=== PATIENT | male | born 1935 | race Caucasian/White ===

== ENCOUNTER 2023-04-14 21:29 | Emergency (ER) | payer MEDICARE, OTHER, SELFPAY ==
[2023-04-14 21:32] VITALS: BP 113/76; BMI 27.1
--- NOTE | 2023-04-14 22:32 | ED.GENMED ---
History of Present Illness
General
Chief Complaint: Headache
Time Seen by Provider: 04/14/23 22:32
Travel History
Have you had any contact with someone who has COVID-19?: No
Do you have any symptoms of coronavirus? Fever > 100 degrees, chills, cough, shortness of breath, sore throat, loss of taste or smell, muscle aches, or headache?: No
History of Present Illness
History of Present Illness:
HPI: Patient presents by ambulance because the was concerned about low blood pressure readings. The noted a blood pressure about 100 over 60s. Earlier in the day with a healthcare provider his blood pressure was around 120 systolic. Per
EMS his blood pressures were in the 120s to 130s systolic range. The patient reports no new symptoms. The family states he had a 'TIA' but also describes having ongoing intermittent aphasia along with ongoing facial paresthesias. Family states he
is in chronic A-fib. He takes Januvia for diabetes and his blood sugar was high prior to arrival but just took his evening meds. Family states that his mental status has been gradually worsening over the last several months. Family also reports a
3 pound weight loss over the past couple of weeks.
EXAM:
GENERAL: Well appearing in no distress, the patient is normotensive
HEENT: Moist oral mucosa
CARDIOVASCULAR: No murmurs, normal heart rate with irregular rhythm, No chest wall tenderness
PULMONARY: No respiratory distress, breath sounds are clear and equal
ABDOMEN: Soft with no peritoneal signs, no tenderness
NEUROLOGIC: Excellent strength all extremities, no coordination deficits, some mild aphasia noted, has trouble naming the month and the place
PSYCHIATRIC: Appropriate mental status, normal insight and judgement
EXTREMITIES: Nontender, no edema, moves all extremities equally
SKIN: No rash, no lesions
ED COURSE:
12:40 PM: I initially evaluated patient
NUMBER AND COMPLEXITY OF PROBLEMS ADDRESSED AT THE ENCOUNTER
� Chronic conditions affecting care: History of migraines, A-fib on Eliquis, CHF, high blood pressure, hyperlipidemia, diabetes, anxiety/depression
� Acute Exacerbation and/or Progression of Chronic Illness: This is an acute problem
� Differential Diagnosis includes: Sepsis less likely given normal vital signs currently, diabetes complications, medication induced transient hypotension
AMOUNT AND/OR COMPLEXITY OF DATA TO BE REVIEWED AND ANALYZED
� I performed an independent evaluation of and my interpretation is:
EKG: The patient remained in rate controlled A-fib on the monitor
CT: CT imaging showed no acute abnormality
X-rays:
Laboratory Studies: Renal function is comparable to but slightly worse than prior currently with creatinine of 2.1, white count normal, hemoglobin 11.8 which is also similar to prior
Other:
� Review of other/old records: The patient was admitted here this past August with HFrEF
� Clinical information was obtained by an independent historian: I spoke to and daughter at bedside
� Prescriptions/Medications Considered but not given: Considered IV fluids however the patient has a history of HFrEF and is currently normotensive
� Further testing considered but not performed:
RISK OF COMPLICATIONS AND/OR MORBIDITY OR MORTALITY OF PATIENT MANAGEMENT
� Social determinants of health affecting care: Lives at independent living
� Discussion with other providers:
� Escalation of care including admission/observation vs risk of discharge considered: I spoke to . She called the ambulance because she had 1 low blood pressure of 100 over 60s. The blood pressure earlier in the day
reportedly was around 120 and 2 blood pressure readings for EMS were both normal. He currently is normotensive. There is no new change on his neurologic examination. I reassessed the patient at 12:40 AM, the patient has no symptoms and repeat
blood pressure is 127/77.
Past History
Past History
ED Past Medical History: Arrthythmia (Atrial fibrillation), HTN, Hypercholesterolemia, NIDDM and Other (Ventral hernia)
ED Past Surgical History: Orthopedic and Other (Bowel resection)
Social History
Tobacco: Non-smoker
Personal:
Living: with family
Phy Exam
Physical Exam
Physical Exam:
See HPI
Course
Orders/Labs/Results
Orders:
Orders
04/14/23 22:43
Electrocardiogram (*1) Urgent
Reason for Study: Other
Other Reason for Exam: low bp
CT Head W/o Iv Contrast Urgent
Comment:
Reason For Exam: intermittent aphasia and facial paresthesias
EKG- Treatment ONCE
04/14/23 23:32
Basic Metabolic Panel Urgent
Complete Blood Count/With Diff Urgent
Abnormal Lab Results
04/14/23
23:32
RBC 3.97 L 10^6/uL
(4.70-6.10)
Hgb 11.8 L g/dL
(13.0-18.0)
Hct 34.8 L %
(39.0-52.0)
Absolute Monos (auto) 1.0 H 10^3/uL
(0.1-0.6)
Monocytes % 14.6 H %
(1.7-9.3)
BUN 48 H mg/dl
(9-20)
Creatinine 2.1 H mg/dL
(0.7-1.3)
04/14/23 23:32
04/14/23 23:32
Vital Signs
Initial and Last Documented VS:
Initial Vital Signs
Temp Pulse Resp BP Pulse Ox
99.2 F 77 16 113/76 98
04/14/23 21:32 04/14/23 21:32 04/14/23 21:32 04/14/23 21:32 04/14/23 21:32
Last Documented Vital Signs
Temp Pulse Resp BP Pulse Ox
99.2 F 76 17 117/83 98
04/14/23 21:32 04/14/23 23:30 04/14/23 23:30 04/14/23 23:30 04/14/23 23:30
*Critical Care Note
Total Time (30-74mins, 75-104mins- exclusive of procedures): Not Applicable
ED Attending Note
-
Portions of this chart may have been created with voice recognition software.� Occasional wrong word or��sound alike� substitutions may have occurred due to the inherent limitations of voice recognition software.
Discharge Plan
Departure
Patient Disposition: Home (Routine Discharge)
Date of Disposition: 04/15/23
Time of Disposition: 00:40
Patient with high blood pressure during this ER visit?: Yes
Discharge Problem:
Acute hypotension
Instructions: Low Blood Pressure (DC)
Prescriptions:
No Action
atorvastatin 40 MG tablet
40 mg PO QPM
omeprazole 20 MG capsule,delayed release(DR/EC)
20 mg PO DAILY
magnesium oxide 500 MG tablet
500 mg PO DAILY 0RF
fenofibrate 54 MG tablet
54 mg PO DAILY
Eliquis 2.5 mg Tablet
2.5 mg PO BID Qty: 60 0RF
atorvastatin [Lipitor] 10 mg Tablet
10 mg PO QPM
psyllium Packet
1 packet PO DAILY
acetaminophen [Tylenol Extra Strength] 500 mg Tablet
500 mg PO BID@0800,1200
acetaminophen [Tylenol Extra Strength] 500 mg Tablet
1,000 mg PO QPM
sertraline 50 mg Tablet
50 mg PO DAILY
tamsulosin 0.4 mg capsule
0.4 mg PO BID
Januvia 50 mg tablet
50 mg PO DAILY
metoprolol succinate [Toprol XL] 25 mg tablet extended release 24 hr
25 mg PO DAILY Qty: 30 2RF
furosemide [Lasix] 40 mg tablet
60 mg PO BID 30 Days Qty: 90 0RF
Referrals:
Vale Gaona MD [Family Provider] -
Activity Restrictions/Additional Instructions:
Currently, the 2 blood pressure readings that we have from EMS were normal and the blood pressure reading at time of discharge and at time of arrival were all near normal. He never had low blood pressure readings here. His glucose currently is 96.
His renal function is somewhat impaired but very close to prior. Return here if worse.
Interventions
Interventions:
*Risk Screen - Suicide Last Done: 04/14/23 21:32
*General Assessment Last Done: 04/14/23 23:19
*Neglect/Abuse Screening Last Done: 04/14/23 21:32
ED- Fall Risk Assessment Last Done: 04/14/23 23:19
*ED COVID-19 Vaccine History Last Done: 04/14/23 21:32
ED- Neurological Assessment Last Done: 04/14/23 23:19
[2023-04-14 23:30] VITALS: BP 117/83
[2023-04-14 23:43] LABS: % Basophils 0.6 % (0-2); % Immature Granulocytes 0.4 % (0-0.5); % Lymphocytes 23.1 % (20.5-51.1); % Monocytes 14.6 % (1.7-9.3); % Neutrophils 60.3 % (42.2-75.2); Absolute Eosinophils 0.1 10^3/uL (0-0.7); Absolute Lymphocytes 1.6 10^3/uL (1.2-3.4); Hematocrit 34.8 % (39.0-52.0); Hemoglobin 11.8 g/dL (13.0-18.0); Mean Corp Hgb Conc. 33.9 g/dL (33.0-37.0); Mean Corpuscular Hgb 29.7 pg (27.0-31.0); Mean Corpuscular Volume 87.7 fL (80.0-94.0); Mean Platelet Volume 10.2 fL (7.4-10.4); Nucleated Red Blood Cells % 0 % (-); Platelet Count 172 10^3/uL (130-400); Red Blood Cell Count 3.97 10^6/uL (4.70-6.10); Red Cell Dist. Width 14.2 % (11.5-14.5); White Blood Cell Count 6.7 10^3/uL (4.8-10.8)
[2023-04-14 23:57] LABS: Blood Urea Nitrogen 48 mg/dl (9-20); Calcium 9.2 mg/dl (8.4-10.2); Carbon Dioxide 28 mmol/L (22-30); Chloride 102 mmol/L (98-107); Estimated Creatinine Clearance 27 ml/min; Glucose 96 mg/dl (70-99); Sodium 137 mmol/L (135-145)
[2023-04-15 00:38] VITALS: BP 129/77
[2023-04-15 01:00] VITALS: BP 128/82
== END 2023-04-15 01:33 | disposition home or self-care (01) ==
LOC: EMR 21:29
PROVIDERS: EMERGENCY PHYSICIAN Emergency Medicine; FAMILY PHYSICIAN Internal Medicine
DX: I95.9 Hypotension, unspecified (principal); I11.0 Hypertensive heart disease with heart failure; I50.9 Heart failure, unspecified; I48.91 Unspecified atrial fibrillation; F41.9 Anxiety disorder, unspecified; F32.A Depression, unspecified; E78.00 Pure hypercholesterolemia, unspecified; E11.9 Type 2 diabetes mellitus without complications
CPT/HCPCS: 99284; 70450; 80048; 85025; 93005

== ENCOUNTER 2023-09-30 12:41 | Inpatient (IN) | payer MEDICARE, OTHER, SELFPAY ==
[2023-09-30] VITALS (15 sets, daily range): BP systolic 109–155; BP diastolic 61–106
[2023-09-30 05:07] LABS: % Basophils 0.5 % (0-2); % Eosinophils 0.5 % (0-6); % Immature Granulocytes 0.5 % (0-0.5); % Lymphocytes 22.8 % (20.5-51.1); % Monocytes 16.3 % (1.7-9.3); % Neutrophils 59.4 % (42.2-75.2); Absolute Lymphocytes 1.4 10^3/uL (1.2-3.4); Absolute Neutrophils 3.6 10^3/uL (1.4-6.5); Hemoglobin 11.5 g/dL (13.0-18.0); Mean Corp Hgb Conc. 33.8 g/dL (33.0-37.0); Mean Corpuscular Hgb 31.1 pg (27.0-31.0); Mean Corpuscular Volume 91.9 fL (80.0-94.0); Mean Platelet Volume 10.3 fL (7.4-10.4); Nucleated Red Blood Cells % 0 % (-); Platelet Count 157 10^3/uL (130-400); Red Cell Dist. Width 14.6 % (11.5-14.5)
[2023-09-30 05:17] LABS: COVID-19 Antigen Negative (Negative)
[2023-09-30 05:18] LABS: ALT (SGPT) 14 U/L (0-50); AST (SGOT) 26 U/L (17-59); Albumin 4.3 g/dl (3.5-5.0); Alkaline Phosphatase 43 U/L (38-126); Blood Urea Nitrogen 52 mg/dl (9-20); Calcium 9.6 mg/dl (8.4-10.2); Carbon Dioxide 29 mmol/L (22-30); Chloride 102 mmol/L (98-107); Glucose 125 mg/dl (70-99); Potassium 4.2 mmol/L (3.5-5.1); Sodium 143 mmol/L (135-145); Total Bilirubin 0.7 mg/dl (0.2-1.3); Total Protein 6.9 g/dl (6.3-8.2); eGFR 33.72
[2023-09-30 05:40] LABS: NT-proBNP 4200 pg/ml; Troponin I 0.048 ng/ml
--- NOTE | 2023-09-30 06:18 | ED.GENMED ---
History of Present Illness
General
Chief Complaint: Breathing Problem
Source: patient
Time Seen by Provider: 09/30/23 06:04
History of Present Illness
History of Present Illness:
87-year-old male presents to the emergency room complaining of chest pain, shortness of breath. Patient states he was awoken from sleep with the symptoms. He rates his chest discomfort as a 6 out of 10 at this point. Nothing seems to make it
better or worse. Patient denies history of [place].
Past History
Past History
ED Past Medical History: Arrthythmia (Atrial fibrillation), HTN, Hypercholesterolemia, NIDDM and Other (Ventral hernia)
ED Past Surgical History: Orthopedic and Other (Bowel resection)
Social History
Tobacco: Non-smoker
Personal:
Living: with family
Phy Exam
Physical Exam
Physical Exam:
General: Awake, Alert, Oriented X3. No acute distress.
Vitals: unremarkable
Head: Atraumatic
Eyes: Pupils equal, EOMI
Throat: Airway intact, no exudates
Neck: Trachea midline
Lungs: Few crackles bilateral bases
Heart: Regular rate, no murmurs
Abd: Soft, Nontender, No pulsatile mass
Neuro: Grossly nonfocal
Extremities: pulses equal b/l, 2+ edema
Scores
Heart Failure Risk
Heart Failure Risk Score: Yes
History of Stroke or TIA: Yes
History of intubation for respiratory distress: No
Heart rate on ED arrival >/= 110: Yes
SaO2 <90% on arrival on room air: Yes
HR >/=110 during 3min walk test (or too ill to perform test): Yes
ECG has acute ischemic changes: No
Urea >/=12mmol/L (BUN 33.6mg/dL): Yes
Serum CO2>/=35mmol/L: No
Troponin I or T elevated to [place] Level (0.4mg/dL): No
NT-proBNP >/=5,000ng/L (5,000pg/ml): No
HF Risk Score: 5
Admission Status: VERY HIGH RISK 39.8% Consider admission to hospital
Course
Orders/Labs/Results
Orders:
Orders
09/30/23 04:41
Electrocardiogram (*1) Urgent
Reason for Study: Shortness of Breath
EKG- Treatment ONCE
09/30/23 04:50
CR Chest - 2 Views Urgent
Comment:
Reason For Exam: cough
09/30/23 04:52
CBC/With Diff [Complete Blood Count/With Diff] Urgent
COVID-19 Antigen Urgent
Source: Nasal Swab
Comprehensive Metabolic Panel Urgent
Pro-BNP [NT-proBNP] Urgent
Troponin I Urgent
09/30/23 06:16
Nitroglycerin Sublingual [Nitrostat (Sublingual)] 0.4 mg SL [id number] PRN
09/30/23 06:17
Electrocardiogram (*1) Stat
Reason for Study: Other
Other Reason for Exam: chest pain
EKG- Treatment ONCE
09/30/23 07:39
Furosemide [Lasix] 40 mg IV NOW STA
09/30/23 07:56
Troponin I Urgent
Abnormal Lab Results
09/30/23 09/30/23
04:52 07:56
RBC 3.70 L 10^6/uL
(4.70-6.10)
Hgb 11.5 L g/dL
(13.0-18.0)
Hct 34.0 L %
(39.0-52.0)
MCH 31.1 H pg
(27.0-31.0)
RDW 14.6 H %
(11.5-14.5)
Absolute Monos (auto) 1.0 H 10^3/uL
(0.1-0.6)
Monocytes % 16.3 H %
(1.7-9.3)
BUN 52 H mg/dl
(9-20)
Creatinine 1.9 H mg/dL
(0.7-1.3)
Glucose 125 H mg/dl
(70-99)
Troponin I 0.048 H* ng/ml 0.049 H* ng/ml
09/30/23 04:52
09/30/23 04:52
Vital Signs
Initial and Last Documented VS:
Initial Vital Signs
Temp Pulse Resp BP Pulse Ox
98.1 F 63 18 123/86 100
09/30/23 04:43 09/30/23 04:43 09/30/23 04:43 09/30/23 04:43 09/30/23 04:43
Last Documented Vital Signs
Temp Pulse Resp BP Pulse Ox
98.1 F 78 16 131/81 100
09/30/23 04:43 09/30/23 11:00 09/30/23 11:00 09/30/23 11:00 09/30/23 11:00
MDM/Problems Addressed
Differential Diagnosis Includes:
chf, acs, pneumonia,
MDM/Problems Addressed:
Patient presents with chest pain, shortness of breath. He is anticoagulated on Eliquis. His BNP is elevated at 4200. Chest x-ray shows some chronic changes but not nothing acute. His EKG shows no ischemic changes. Troponin is slightly elevated
but flat on second measurement. Suspect patient's symptoms are related to heart failure. We will give him some IV Lasix and hospitalize for further treatment and evaluation
*Pulse Oximetry
Patient hypoxic: yes
*EKG
Interpreted by ED Provider?: Yes
Interpretation: abnormal
Comparison EKG: no changes
Heart Rate: 74
Rate: normal
Rhythm: a-fib and PVC's
[place]: normal axis
Interval: normal interval
QRS Pattern: normal QRS
Ischemia: non-specific ST changes
*Principal Security Architect Interpretation
Rate: normal
Interpretation: abnormal
Rhythm: a-fib and PVC's
*Critical Care Note
Total Time (30-74mins, 75-104mins- exclusive of procedures): Not Applicable
Data Reviewed
Review of Other/Old Records Reveals: Discharge Summary
Patient Management
Social determinants of health affecting care: Living situation
ED Attending Note
-
Portions of this chart may have been created with voice recognition software.� Occasional wrong word or��sound alike� substitutions may have occurred due to the inherent limitations of voice recognition software.
Discharge Plan
Departure
Patient Disposition: Admit
Date of Disposition: 09/30/23
Time of Disposition: 08:53
Admit to: Med/Surg
Presentation/result/management discussed w/ accepting MD/DO: Hospitalist
Condition: Fair
Discharge Problem:
CHF (congestive heart failure)
Prescriptions:
No Action
atorvastatin 40 MG tablet
40 mg PO QPM
omeprazole 20 MG capsule,delayed release(DR/EC)
20 mg PO DAILY
fenofibrate 54 MG tablet
54 mg PO DAILY
Eliquis 2.5 mg Tablet
2.5 mg PO BID Qty: 60 0RF
atorvastatin [Lipitor] 10 mg Tablet
10 mg PO QPM
acetaminophen [Tylenol Extra Strength] 500 mg Tablet
500 mg PO Q4H PRN (Reason: Pain)
sertraline 50 mg Tablet
50 mg PO DAILY
Januvia 50 mg tablet
50 mg PO DAILY
metoprolol succinate [Toprol XL] 25 mg tablet extended release 24 hr
25 mg PO DAILY Qty: 30 2RF
latanoprost 0.005 % Drops
1 drp LEFT EYE HS
Metamucil Packet
1 packet PO DAILY
vitamin B complex [Vitamin B-100] Tablet
1 tab PO DAILY
silodosin 8 mg Capsule
8 mg PO QPM
furosemide [Lasix] 40 mg tablet
60 mg PO DAILY
magnesium oxide 500 MG tablet
250 mg PO DAILY@1300
Referrals:
UNKNOWN - PT DOES,NOT KNOW [Family Provider] -
Interventions
Interventions:
*Risk Screen - Suicide Last Done: 09/30/23 04:43
*General Assessment Last Done: 09/30/23 04:43
*Neglect/Abuse Screening Last Done: 09/30/23 04:43
ED- Fall Risk Assessment Last Done: 09/30/23 04:50
*ED COVID-19 Vaccine History Last Done: 09/30/23 04:50
ED- Cardiac Assessment Last Done: 09/30/23 04:50
ED- Pulmonary Assessment Last Done: 09/30/23 04:50
Discharge Date and Time
Print Language: SAO TOMEAN
[2023-09-30] MEDS: NITROSTAT (SUBLINGUAL) 0.4 MG SL (06:38)
[2023-09-30] MEDS: LASIX 40 MG IV ×2 (07:57→16:13)
[2023-09-30 08:33] LABS: Troponin I 0.049 ng/ml
--- NOTE | 2023-09-30 11:59 | HPS.HSE ---
Family Physician
-
Family Physician: NOT KNOW UNKNOWN - PT DOES
Chief Complaint
-
SOB
History of Present Illness
87yo M with PMHx of RBBB, HLD, Afib on eliquis, CKD stage 3B, anxiety d/co HTN, HFmrEF, moderate TR, moderate MR, DM, hx of CVA, BRIONNA came with chest congestion and SOB, found to be in CHF with elevated proBNP 4200. EKG without new changes, troponin
mildly chronically elevated without significant change.
Medical History
Past Medical History
Past Medical History: Reports Other
Additional Past Medical History:
As above
Past Surgical History: Reports None
Social History
Tobacco: Non-smoker
Alcohol: None
Drug: None
Family History
Family History: Not pertinent
Allergies / Home Medications
Allergies reflects when Allergies were last updated in [facility].
Home Medications with original date entered in [facility]
Allergy/Medication List:
Allergies
Allergy/AdvReac Type Severity Reaction Status Date / Time
No Known Allergies Allergy Verified 04/14/23 21:35
Home Medications
atorvastatin 40 mg tablet 40 mg PO QPM take with 10mg 10/05/20
omeprazole 20 mg capsule,delayed release 20 mg PO DAILY Gastrointestinal issue 10/05/20
fenofibrate 54 mg tablet 54 mg PO DAILY High cholesterol 08/04/21
apixaban 2.5 mg tablet (Eliquis) 2.5 mg PO BID #60 tabs 08/06/21
acetaminophen 500 mg tablet (Tylenol Extra Strength) 500 mg PO Q4H PRN Pain 04/24/22
atorvastatin 10 mg tablet (Lipitor) 10 mg PO QPM take with 40mg 04/24/22
sertraline 50 mg tablet 50 mg PO DAILY Mental Health/Anxiety 04/24/22
sitagliptin phosphate 50 mg tablet (Januvia) 50 mg PO DAILY Diabetes 08/20/22
metoprolol succinate 25 mg tablet,extended release 24 hr (Toprol XL) 25 mg PO DAILY Heart disease/condition #30 tabs 08/21/22
furosemide 40 mg tablet (Lasix) 60 mg PO DAILY Heart Failure 09/30/23
latanoprost 0.005 % eye drops 1 drp LEFT EYE HS 09/30/23
magnesium oxide 250 mg PO DAILY@1300 Electrolyte Repletion 09/30/23
psyllium 1 packet PO DAILY 09/30/23
silodosin 8 mg capsule 8 mg PO QPM 09/30/23
vitamin B complex 1 tab PO DAILY 09/30/23
Review of Systems
-
History Source: Patient
A 12 point ROS was completed and negative except as noted: Yes
Respiratory: Reports Trouble Breathing
Physical Exam
Vital Signs
Vital Signs
Temp Pulse Resp BP Pulse Ox
98.1 F 78 16 131/81 100
09/30/23 04:43 09/30/23 11:00 09/30/23 11:00 09/30/23 11:00 09/30/23 11:00
Physical Exam
General: Well Developed, Well Nourished and No Apparent Distress
Respiratory: Clear
GI: Soft, Non Tender and Non Distended
Genito-urinary: Costovertebral angle tend
Musculoskeletal: No Clubbing, No Cyanosis, Edema, Left Lower Extremity and Edema, Right Lower Extremity
Skin: Warm
Neuro: Awake, Alert, Oriented and AO x 3
Psych: Calm
Laboratory Results
-
09/30/23 04:52
09/30/23 04:52
Laboratory Results
Total Bilirubin 0.7 mg/dl (0.2-1.3) 09/30/23 04:52
AST 26 U/L (17-59) 09/30/23 04:52
ALT 14 U/L (0-50) 09/30/23 04:52
Alkaline Phosphatase 43 U/L (38-126) 09/30/23 04:52
Troponin I 0.049 ng/ml H* 09/30/23 07:56
Impression/Plan
-
A/P:
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
#CAD
#Afib, unspecified
#Troponin elevation, most likely non-ischemic cardiac injury and 2/2 CKD
#Moderate MR
#Moderate TR
Cardio consult
Serial troponin
Cont Elqiuis
Telemetry
Echo, Lasix, follow daily weight and electrolytes
Check TSH, LDL
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
repeat CT chest
#DM type 2 with nephropathy
Accuchecks, Insulin SS, DM diet
#GERD
#HLD
#Essential HTN
#BPH
cont hoem meds
Watch for retention
DVT ppx on Elqiuis
Full code
I have spent at least 78min admitting the patient, reviewing chart, test results, communication with consultants anddirect patient care
--- NOTE | 2023-09-30 12:48 | CON.CAR ---
Consultation
Consultation Request
Date/Time Consultation Requested: 09/30/23
Date/Time Consultation Performed: 09/30/2023
Reason for Consultation: Heart failure and chest pain
Medical History
-
Chief Complaint: Shortness of breath
History of Present Illness:
87yo M with PMHx of RBBB, HLD, Afib on eliquis, CKD stage 3B, anxiety d/co HTN, HFmrEF, moderate TR, moderate MR, DM, hx of CVA, BRIONNA came with chest congestion and SOB, found to be in CHF with elevated proBNP 4200. EKG without new changes, troponin
mildly chronically elevated without significant change.
Patient was complaining of 1 day duration of chest pain. Patient's troponin was noted to be 0.048 and repeat was 0.049. Patient's creatinine is 1.9 which is close to his baseline.
Patient proBNP was 4200. Patient's normal proBNP during previous hospitalizations was around 2000's with CHF
Chest x-ray shows mild left-sided pleural effusion with cardiomegaly. Patient also has a history of asbestos exposure and COPD along with asbestos exposure noted on the chest x-ray.
Past Medical History
Past Medical History: Arrhythmias (Pulmonary atrial fibrillation), CVA (September 2020), HTN, NIDDM, Renal Failure (CKD 3B with baseline creatinine 1.8) and Other (Obstructive sleep apnea)
Past Surgical History: Bowel Resection and Orthopedic
Social History
Tobacco: Non-Smoker
Alcohol: None
Drug: None
Personal:
Living: With Family
Employment: Retired
Family History
Family History: Reviewed & Not Pertinent
Allergies / Home Medications
Allergy/AdvReac Type Severity Reaction Status Date / Time
No Known Allergies Allergy Verified 04/14/23 21:35
�Medication �Instructions �Recorded �Confirmed �Type
atorvastatin 40 mg tablet 40 mg PO QPM take with 10mg 10/05/20 09/30/23 History
omeprazole 20 mg capsule,delayed 20 mg PO DAILY Gastrointestinal 10/05/20 09/30/23 History
release issue
fenofibrate 54 mg tablet 54 mg PO DAILY High cholesterol 08/04/21 09/30/23 History
apixaban 2.5 mg tablet (Eliquis) 2.5 mg PO BID #60 tabs 08/06/21 09/30/23 Rx
acetaminophen 500 mg tablet 500 mg PO Q4H PRN Pain 04/24/22 09/30/23 History
(Tylenol Extra Strength)
atorvastatin 10 mg tablet (Lipitor) 10 mg PO QPM take with 40mg 04/24/22 09/30/23 History
sertraline 50 mg tablet 50 mg PO DAILY Mental 04/24/22 09/30/23 History
Health/Anxiety
sitagliptin phosphate 50 mg tablet 50 mg PO DAILY Diabetes 08/20/22 09/30/23 History
(Januvia)
metoprolol succinate 25 mg 25 mg PO DAILY Heart 08/21/22 09/30/23 Rx
tablet,extended release 24 hr disease/condition #30 tabs
(Toprol XL)
furosemide 40 mg tablet (Lasix) 60 mg PO DAILY Heart Failure 09/30/23 09/30/23 History
latanoprost 0.005 % eye drops 1 drp LEFT EYE HS 09/30/23 09/30/23 History
magnesium oxide 250 mg PO DAILY@1300 Electrolyte 09/30/23 09/30/23 History
Repletion
psyllium 1 packet PO DAILY 09/30/23 09/30/23 History
silodosin 8 mg capsule 8 mg PO QPM 09/30/23 09/30/23 History
vitamin B complex 1 tab PO DAILY 09/30/23 09/30/23 History
Review of Systems
-
History Source: Patient
All other systems: Negative unless noted
Physical Exam
Vital Signs
Temp Pulse Resp BP Pulse Ox
98.1 F 67 16 128/80 100
09/30/23 04:43 09/30/23 12:00 09/30/23 12:00 09/30/23 12:00 09/30/23 12:00
Lab Results
09/30/23 04:52
09/30/23 04:52
Troponin I 0.049 ng/ml H* 09/30/23 07:56
Nfe-T-Riocfvfynhi Pept 4200 pg/ml 09/30/23 04:52
Physical Exam
General: Well Developed, Well Nourished and No Apparent Distress
HEENT: Normocephalic and Anicteric
Respiratory: Clear, Crackles, Rhonchi and Non Labored Respirations
Cardiac: S1/S2, Irregular Rhythm and JVD
GI: Soft, Non Tender and Normal Bowel Sounds
Musculoskeletal: No Clubbing, No Cyanosis and Edema
Skin: Warm and Dry
Neuro: Awake, Alert, Oriented and AO x 3
Impression / Plan
-
HFrEF (EF 35-40%), acute on chronic
-Echo 08/19/2022: LVEF 35%. Severe inferolateral, inferoseptal and inferior hypokinesis.
-Moderate MR�eccentric massively dilated left and right atria
- Diuresis with furosemide 40 mg IV twice daily, this requires monitoring
- GDMT as tolerated, this is limited by his renal function
- On metoprolol 25 mg once a day
- Daily weight, BMP, & I/Os
- HF education
Chest pain and shortness of breath
-Likely related to acute on chronic decompensated heart failure.
-Serial troponin to rule out any significant troponin leak
-Demand ischemia is expected with mild to moderate troponin elevation.
-Troponin was 0.05 in July 2021 but was 0.02 in 2022. Now 0.05 -likely baseline with acute heart failure and CKD.
Permanent Atrial Fibrillation
- Rate controlled on propranolol
- Oral Anticoagulation: Eliquis 2.5mg PO BID (age 86, creatinine > 1.5)
- [id number] score at least 7 (Heart failure, HTN, age 75 or more, Diabetes Mellitus, prior CVA)
CKD3b
- Follow with IV diuresis
- Patient of Dr. Mayorga
HTN - chronic
- Follow with IV diuresis & Diltiazem gtt
- Continue Cozaar & Toprol
NIDDM, per primary
CVA, while warfarin was on hold for epidural (09/2020)
HLD, on Lipitor & Tricor
Mild to moderate, eccentric mitral regurgitation
BRIONNA, reports CPAP intolerant
Data Reviewed
-
EKG: Tracing Personally Visualized and interpreted (Atrial fibrillation with PVC)
Radiology: Image Personally Visualized and interpreted and Report Reviewed by me
Medical Tests (Nuc Med, Echo etc): Image Personally Visualized and interpreted
Labs: Labs Reviewed by me
Old Records: Reviewed
--- NOTE | 2023-09-30 14:02 | PTCARENOTE ---
Arrived to floor and pulled over to bed from stretcher. Patient reports to be wheel chair bound at baseline. Call [facility] within reach. Oriented to room.
[2023-09-30 14:19] LABS: Glucose - Point of Care 137 mg/dl (70-99)
[2023-09-30 15:08] LABS: Troponin I 0.059 ng/ml
[2023-09-30] MEDS: DUONEB 3 ML INH ×2 (15:09→19:51)
[2023-09-30] MEDS: TYLENOL 650 MG PO (16:13)
[2023-09-30] MEDS: MAGNESIUM OXIDE 250 MG PO (16:17)
[2023-09-30] MEDS: FLOMAX 0.4 MG PO (16:21)
[2023-09-30] MEDS: LIPITOR 10 MG PO (16:21)
[2023-09-30] MEDS: LIPITOR 40 MG PO (16:21)
[2023-09-30 17:17] LABS: Glucose - Point of Care 194 mg/dl (70-99)
[2023-09-30] MEDS: NOVOLOG FLEXPEN-LOW RESISTANCE SC (17:26)
[2023-09-30] MEDS: NOVOLOG FLEXPEN-LOW RESISTANCE 1 UNITS SC (18:03)
[2023-09-30] MEDS: ELIQUIS 2.5 MG PO (20:32)
[2023-09-30] MEDS: MELATONIN 3 MG PO (20:32)
[2023-09-30] MEDS: MORPHINE SULFATE 1 MG IV (21:19)
--- NOTE | 2023-09-30 22:10 | W.PN.UPDATE ---
Update Note
Progress Note Update
Notified by RN or elevated troponin 0.048>0.049>0.59>0.090. Reports patient is SOB and Tachycardic. Upon assessment, patient reports having pain to his sacral wound, reports of being anxious from having pain to the area. Denies worsening SOB, chest
pain. Lungs CTA. Rx 1mg morphine which appears to be helping. Patient sleeping at this time. Nursing continue to monitor and continue Troponin trend.
[2023-09-30] MEDS: XALATAN OPHTHALMIC SOLUTION LEFT EYE (22:30)
[2023-09-30 23:57] LABS: Glucose - Point of Care 167 mg/dl (70-99)
[2023-10-01] VITALS (18 sets, daily range): BP systolic 87–144; BP diastolic 46–80; BMI 24.9
[2023-10-01 02:10] LABS: Troponin I 0.121 ng/ml
[2023-10-01] MEDS: HEPARIN 25000 UNITS/250 ML IV (07:05)
[2023-10-01] MEDS: TYLENOL 650 MG PO ×2 (07:05→14:55)
[2023-10-01] MEDS: ASPIRIN 325 MG PO (07:09)
[2023-10-01 07:35] LABS: % Basophils 0.2 % (0-2); % Eosinophils 0.1 % (0-6); % Immature Granulocytes 0.5 % (0-0.5); % Lymphocytes 7.8 % (20.5-51.1); % Monocytes 11.3 % (1.7-9.3); % Neutrophils 80.1 % (42.2-75.2); Absolute Immature Granulocytes 0.1 10^3/uL (0-0.05); Absolute Lymphocytes 0.7 10^3/uL (1.2-3.4); Absolute Neutrophils 7.3 10^3/uL (1.4-6.5); Hematocrit 36.3 % (39.0-52.0); Hemoglobin 12.4 g/dL (13.0-18.0); Mean Corp Hgb Conc. 34.2 g/dL (33.0-37.0); Mean Corpuscular Hgb 30.2 pg (27.0-31.0); Mean Corpuscular Volume 88.3 fL (80.0-94.0); Mean Platelet Volume 10.2 fL (7.4-10.4); Nucleated Red Blood Cells % 0 % (-); Platelet Count 180 10^3/uL (130-400); Red Blood Cell Count 4.11 10^6/uL (4.70-6.10); Red Cell Dist. Width 14.6 % (11.5-14.5); White Blood Cell Count 9.1 10^3/uL (4.8-10.8)
[2023-10-01] MEDS: DUONEB 3 ML INH ×4 (07:40→19:46)
[2023-10-01 07:44] LABS: APTT 33.2 Sec (23.4-35.0)
[2023-10-01 07:48] LABS: ALT (SGPT) 15 U/L (0-50); AST (SGOT) 27 U/L (17-59); Albumin 4.5 g/dl (3.5-5.0); Alkaline Phosphatase 46 U/L (38-126); Blood Urea Nitrogen 54 mg/dl (9-20); Calcium 10.1 mg/dl (8.4-10.2); Carbon Dioxide 31 mmol/L (22-30); Chloride 99 mmol/L (98-107); Estimated Creatinine Clearance 29 ml/min; Glucose 159 mg/dl (70-99); HDL Cholesterol 45 mg/dl; LDL Cholesterol, Calculated 91 mg/dl; Potassium 3.8 mmol/L (3.5-5.1); Sodium 142 mmol/L (135-145); Total Bilirubin 1.1 mg/dl (0.2-1.3); Total Cholesterol 151 mg/dl (50-199); Total Protein 7.3 g/dl (6.3-8.2); Triglyceride 76 mg/dl (10-149); Very Low Density Lipoprotein 15 mg/dl (0-30); eGFR 31.71
[2023-10-01] MEDS: LASIX 40 MG IV ×2 (07:58→16:15)
[2023-10-01] MEDS: TRICOR 48 MG PO (07:59)
[2023-10-01] MEDS: ZOLOFT 50 MG PO (07:59)
[2023-10-01] MEDS: B COMPLEX w/VITAMIN C 1 CAPLET PO (07:59)
[2023-10-01] MEDS: METAMUCIL, KONSYL 1 PACKET PO (07:59)
[2023-10-01] MEDS: PROTONIX 20 MG PO (07:59)
[2023-10-01] MEDS: TOPROL XL 25 MG PO (07:59)
--- NOTE | 2023-10-01 08:11 | W.PN.CD ---
Today's Communication / Plan
-
-Continue diuresis with Lasix
-Discontinue heparin drip
-Resume Eliquis 2.5 mg twice a day
Impression / Plan
-
HFrEF (EF 35-40%), acute on chronic
-Echo 08/19/2022: LVEF 35%. Severe inferolateral, inferoseptal and inferior hypokinesis.
-Moderate MR�eccentric massively dilated left and right atria
- Diuresis with furosemide 40 mg IV twice daily, this requires monitoring
- GDMT as tolerated, this is limited by his renal function
- On metoprolol 25 mg once a day
- Daily weight, BMP, & I/Os
- HF education
Chest pain and shortness of breath
-Denies any chest pain. There was shortness of breath likely related to heart failure.
-Likely related to acute on chronic decompensated heart failure.
-Serial troponin showed slow rise to 0.13 -no sign of acute coronary syndrome. Likely related to nausea vomiting and heart failure in setting of severe CKD.
-Demand ischemia is expected with mild to moderate troponin elevation.
-Troponin was 0.05 in July 2021 but was 0.02 in 2022. Now 0.05 -likely baseline with acute heart failure and CKD.
-Patient was started on heparin drip overnight. Okay to stop heparin at this time. Resume Eliquis 2.5 mg twice a day.
Permanent Atrial Fibrillation
- Rate controlled on propranolol
- Oral Anticoagulation: Eliquis 2.5mg PO BID (age 86, creatinine > 1.5)
- [id number] score at least 7 (Heart failure, HTN, age 75 or more, Diabetes Mellitus, prior CVA)
CKD3b
- Follow with IV diuresis
- Patient of Dr. Mayorga
HTN - chronic
- Follow with IV diuresis & Diltiazem gtt
- Continue Cozaar & Toprol
NIDDM, per primary
CVA, while warfarin was on hold for epidural (09/2020)
HLD, on Lipitor & Tricor
Mild to moderate, eccentric mitral regurgitation
BRIONNA, reports CPAP intolerant
Subjective:
Patient is feeling much better with diuresis. Denies any chest pain. Shortness of breath is almost resolved.
Physical Exam
Vital Signs/Labs
Vital Signs
Temp Pulse Resp BP Pulse Ox
98.2 F 102 16 110/65 97
10/01/23 03:13 10/01/23 07:59 10/01/23 07:45 10/01/23 07:59 10/01/23 07:45
09/30/23 10/01/23 10/02/23
06:59 06:59 06:59
Actual Weight 92.8 kg 83.092 kg
10/01/23 07:07
10/01/23 07:07
APTT 33.2 Sec (23.4-35.0) 10/01/23 07:07
Magnesium 2.0 mg/dl (1.6-2.3) 10/01/23 07:07
Triglycerides 76 mg/dl (10-149) 10/01/23 07:07
LDL Cholesterol, Calc 91 mg/dl 10/01/23 07:07
VLDL Cholesterol, Calc 15 mg/dl (0-30) 10/01/23 07:07
HDL Cholesterol 45 mg/dl 10/01/23 07:07
09/30/23
04:52
Kjy-Q-Uvygaenjlbb Pept 4200
LAB Results
09/30/23 09/30/23 09/30/23
04:52 07:56 14:34
Troponin I 0.048 H* 0.049 H* 0.059 H*
09/30/23 10/01/23 10/01/23
20:04 01:39 07:07
Troponin I 0.090 H* D 0.121 H* D 0.130 H*
Physical Exam
Constitutional: No acute distress and Comfortable
EENT: Anicteric and Moist mucous membranes
Cardiovascular: Pedal edema is absent, Rhythm/rate is irregular, JVD present and Systolic murmur present
Respiratory: Respiratory effort normal and Crackles Present
GI: Soft, Distention absent, Non tender and Normal bowel sounds
Neuro/Psych: Alert, Oriented and AO x 3
Data Reviewed
-
Date of Service: October 01, 2023
Medical Decision Making: Reviewed Test Results, Independent Historian Assessment, Test Interpretation and Review of Case with other Provider
EKG: Tracing Personally Visualized and interpreted
Echo: Report Reviewed by me
Labs: Labs Reviewed by me
Old Records: Reviewed
[2023-10-01 08:16] LABS: TSH Reflex To Free T4 2.54 uIU/ml (0.47-4.68)
[2023-10-01 08:16] LABS: Glucose - Point of Care 145 mg/dl (70-99)
[2023-10-01] MEDS: NOVOLOG FLEXPEN-LOW RESISTANCE SC ×2 (08:27→17:17)
--- NOTE | 2023-10-01 10:24 | W.PN.HOSP.TC ---
Today's Communication/Plan
-
Heparin instead of ELiquis awaiting further Cardio follow up - repeated EKG without ST elevation
cont Lasix
Urology cosnult
Watch for retention. Donovan if PVR>350ml
Echo pending
Assessment / Plan
Assessment / Plan
87yo M with PMHx of RBBB, HLD, Afib on eliquis, CKD stage 3B, anxiety d/co HTN, HFmrEF, moderate TR, moderate MR, DM, hx of CVA, BRIONNA came with chest congestion and SOB, found to be in CHF with elevated proBNP 4200. EKG without new changes, troponin
chronically elevated but started to trend up. Chest symptoms resolved with diuresis.
A/P:
A/P:
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
#CAD
#Afib, permanent
#Troponin elevation
#Moderate MR
#Moderate TR
ASA, heparin pending further card eval
Cardio consult
Serial troponin
Cont Elqiuis
Telemetry
Echo, Lasix, follow daily weight and electrolytes
TSH WNL
LDL 91
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
#Lung fibrosis
Outpatient pulm
bronchodilators
#b/l renal calyces enlargement, concern for BPH
watch for retention with serial bladder scan
Urology conault
Finasteride/Tamsulosin
CKD stable - watch Cr
#DM type 2 with nephropathy
Accuchecks, Insulin SS, DM diet
#Sacral wound
Woundcare
#GERD
#HLD
#Essential HTN
#BPH
cont hoem meds
Watch for retention
DVT ppx on Elqiuis
Full code
I have spent at least 58min reviewing chart, test results, communication with consultants, family and direct patient care
Anticipated Discharge: > 48 hours
Subjective/Interval History
-
Date of Service: October 01, 2023
Objective Data
-
Labs:
Laboratory Results
10/01/23 10/01/23
07:07 13:15
WBC 9.1
Hgb 12.4 L
Hct 36.3 L
Plt Count 180
APTT 33.2 Pending
Sodium 142
Potassium 3.8
Chloride 99
Carbon Dioxide 31 H
BUN 54 H
Creatinine 2.0 H
Glucose 159 H
Calcium 10.1
Total Bilirubin 1.1
AST 27
ALT 15
Alkaline Phosphatase 46
Vital Signs:
Vital Signs
Temp Pulse Resp BP Pulse Ox
98 F 102 22 110/65 97
10/01/23 07:48 10/01/23 07:59 10/01/23 07:48 10/01/23 07:59 10/01/23 08:27
I&O
09/30/23 10/01/23 10/02/23
06:59 06:59 06:59
Intake Total 240 / 240
Balance 240 / 240
Review of Systems
-
History Source: Patient
All other systems: Reviewed and negative
Physical Exam
-
General: Respiratory Distress
Cardiac: Irregular Rhythm; Negative Tachycardic
GI: Soft, Nontender and Nondistended
Musculoskeletal: No Clubbing, No Cyanosis and No Edema
Skin: Warm
Neuro: Awake, Alert, Oriented and AO x 3
Psych: Calm
--- NOTE | 2023-10-01 10:34 | PTCARENOTE ---
Patient complains of 'sore butt.' Skin is intact. Foam placed on sacrum for protection on 09/29 @ admission. Static overlay placed on admission, patient asked to have static overlay removed. Maintain q2 turns and skin checks.
[2023-10-01 11:12] LABS: Glycohemoglobin (HgbA1c) 6.9 % (4.0-5.6)
--- NOTE | 2023-10-01 11:18 | PTCARENOTE ---
Patient was saturated and changed at 7am. IV Lasix was given with am medications. No void noted at 10:45, patient bladder scanned for 1100ml. Straight cath for 1150ml.
[2023-10-01] MEDS: ELIQUIS 2.5 MG PO ×2 (11:20→22:19)
[2023-10-01] MEDS: MAGNESIUM OXIDE 250 MG PO ×2 (11:20→11:21)
[2023-10-01 11:46] LABS: Glucose - Point of Care 184 mg/dl (70-99)
[2023-10-01] MEDS: NOVOLOG FLEXPEN-LOW RESISTANCE 1 UNITS SC (11:53)
--- NOTE | 2023-10-01 12:52 | CONS.URO ---
Consultation
-
Performing Provider: Brandon
Reason for Consultation: 10/01/23 1252
Medical History
History of Present Illness
pt admitted with CHF
Chest CT incidentally noted bilateral hydronephrosis
Per family at bedside, Donovan was removed today
he had seen Sr Montalvo recently as an outpatient for previous voiding dysfunction
I &O cath'd for ~1,150 ml urine less than 2 hours ago
Past Medical History
Past Medical History: Other (RBBB, HLD, Afib on eliquis, CKD stage 3B, anxiety d/co HTN, HFmrEF, moderate TR, moderate MR, DM, hx of CVA, BRIONNA)
Allergies/Home Medications
Allergies
Allergy/AdvReac Type Severity Reaction Status Date / Time
No Known Allergies Allergy Verified 04/14/23 21:35
Home Medications
�Medication �Instructions �Recorded �Confirmed �Type
atorvastatin 40 mg tablet 40 mg PO QPM take with 10mg 10/05/20 09/30/23 History
omeprazole 20 mg capsule,delayed 20 mg PO DAILY Gastrointestinal 10/05/20 09/30/23 History
release issue
fenofibrate 54 mg tablet 54 mg PO DAILY High cholesterol 08/04/21 09/30/23 History
apixaban 2.5 mg tablet (Eliquis) 2.5 mg PO BID #60 tabs 08/06/21 09/30/23 Rx
acetaminophen 500 mg tablet 500 mg PO Q4H PRN Pain 04/24/22 09/30/23 History
(Tylenol Extra Strength)
atorvastatin 10 mg tablet (Lipitor) 10 mg PO QPM take with 40mg 04/24/22 09/30/23 History
sertraline 50 mg tablet 50 mg PO DAILY Mental 04/24/22 09/30/23 History
Health/Anxiety
sitagliptin phosphate 50 mg tablet 50 mg PO DAILY Diabetes 08/20/22 09/30/23 History
(Januvia)
metoprolol succinate 25 mg 25 mg PO DAILY Heart 08/21/22 09/30/23 Rx
tablet,extended release 24 hr disease/condition #30 tabs
(Toprol XL)
furosemide 40 mg tablet (Lasix) 60 mg PO DAILY Heart Failure 09/30/23 09/30/23 History
latanoprost 0.005 % eye drops 1 drp LEFT EYE HS Eye Condition 09/30/23 09/30/23 History
magnesium oxide 250 mg PO DAILY@1300 Electrolyte 09/30/23 09/30/23 History
Repletion
psyllium 1 packet PO DAILY Constipation 09/30/23 09/30/23 History
silodosin 8 mg capsule 8 mg PO QPM Urinary Issue 09/30/23 09/30/23 History
vitamin B complex 1 tab PO DAILY Supplement 09/30/23 09/30/23 History
Physical Exam
Vital Signs
Vital Signs
Temp Pulse Resp BP Pulse Ox
98 F 76 16 110/65 99
10/01/23 07:48 10/01/23 11:17 10/01/23 11:17 10/01/23 07:59 10/01/23 11:17
Lab / Testing Results
Laboratory Results
10/01/23 07:07
10/01/23 07:07
Physical Exam
elderly male
General: No Apparent Distress and Comfortable
Assessment / Plan
-
Prostatomegaly with Urinary Retention, bilateral hydronephrosis and elevated serum creatinine c/w obstructive uropathy
Rec:
continue Silodsin
CIC
Data Reviewed
-
CT Scan: Image personally visualized and interpreted
Old Records: Reviewed
[2023-10-01 13:12] LABS: Troponin I 0.138 ng/ml
[2023-10-01] MEDS: MORPHINE SULFATE 1 MG IV (14:02)
[2023-10-01] MEDS: LIPITOR 40 MG PO (16:16)
[2023-10-01] MEDS: LIPITOR 10 MG PO (16:16)
[2023-10-01] MEDS: FLOMAX 0.4 MG PO (16:16)
--- NOTE | 2023-10-01 16:26 | W.PN.UPDATE ---
Update Note
Progress Note Update
Fever
ct chest neg for pna
COVID-19 neg
Check UA and Bcx
Check procalcitonin
monitor for other signs of infection, currently have no indication for abx
[2023-10-01 16:32] LABS: Urine Albumin Trace (Neg - Trace); Urine Bilirubin Negative (Negative); Urine Character Slightly Cloudy (Clear); Urine Color Yellow; Urine Glucose Negative (Negative); Urine Ketone Negative (Negative); Urine Leukocyte 2+ (Negative); Urine Nitrite Negative (Negative); Urine Occult Blood 4+ (Negative); Urine Urobilinogen Negative (Neg - 1+)
--- NOTE | 2023-10-01 16:39 | CM ---
Addendum entered by Jovanna Cortez RN 10/01/23 16:56:
Referral to VN.
Original Note:
Patient with Dx HF. Febrile today. Room air. Receiving IV Lasix.
Spoke with patient's Maylin;
the patient resides with his at [facility] in a 2nd floor apartment with elevator access.
The patient has been independent in ADLs and ambulation using his rollator.
DME - rollator
VN - prior [facility]
SNF - prior [facility]
Current with Palliative Care.
PCP - [facility]
Pharmacy - [facility]
agreeable to VN for HF Education- she agrees to a referral to VN.
Plan watch patient's mobility.
Plan probable home with VN.
--- NOTE | 2023-10-01 16:49 | W.PN.UPDATE ---
Update Note
Progress Note Update
recurrent fevers.
UA, Bcx, procal pending. MSRA swab pending.
empiric Vanc/Cefepime started
[2023-10-01 16:50] LABS: Glucose - Point of Care 177 mg/dl (70-99)
--- NOTE | 2023-10-01 17:11 | PTCARENOTE ---
Patient with noted temp of 100.3 @ 15:00. Tylenol given. Temp 103 when rechecked @ 16:00. Ice packs placed, provider notified. Blood cx, UA, and procalcitonin ordered. Vanco, and maxipime ordered. Temp rechecked @ 17:00 102.5. Plan of care ongoing.
[2023-10-01 17:13] LABS: Urine Bacteria Many (Negative)
[2023-10-01 17:14] LABS: Urine Red Blood Cell 0-2 /HPF (0-2)
[2023-10-01 17:28] LABS: Procalcitonin 0.18 ng/ml (0.0-0.25)
[2023-10-01] MEDS: MAXIPIME 1000 MG IV (17:36)
[2023-10-01] MEDS: STERILE WATER FOR INJECTION 10 ML IV (17:37)
--- NOTE | 2023-10-01 17:37 | PHA.VAN.IN ---
Assessment
- Assessment
Renal Function: Appears elevated from baseline (Baseline Scr 1.5-2, CKD3a)
Maximum Temperature: 103F
Concomitant Antimicrobials: Cefepime
Plan
- Plan
Initial / Loading Dose: Vancomycin 2000mg loading dose 09/30
Monitoring: Random level ordered 10/01 with AM labs
Will dose by level due to renal function
Pharmacokinetics Vancomycin I
- -
Patient Age: 87
Patient Sex: Male
Vancomycin Day #: 1
Indication: Genito-Urinary Tract
Requesting Provider: Dr. Donald
Pertinent Antimicrobial Allergies:
NKDA
Height / Weight:
Height 6 ft
Actual Weight 83.092 kg
Pertinent Past Medical History: CKD3a, DM
- Vital Signs / Lab Results
Temp Pulse Resp BP Pulse Ox
102.5 F H 112 24 114/62 93
10/01/23 17:11 10/01/23 16:34 10/01/23 16:34 10/01/23 16:34 10/01/23 16:34
Lab Results - Hematology
09/30/23 10/01/23
04:52 07:07
WBC 6.0 9.1
Lab Results - Chemistry
09/30/23 10/01/23
04:52 07:07
BUN 52 H 54 H
Creatinine 1.9 H 2.0 H
Estimated Creat Clear 29
Albumin 4.3 4.5
Lab Results - Urine
10/01/23
16:25
Urine Nitrite (Reflex) Negative
Leukocyte Esterase Rfl 2+ A
Urine WBC (Reflex) 3-5
Urine Bacteria (Reflex) Many A
[2023-10-01 18:13] LABS: Erythrocyte Sed Rate 39 mm/hour (0-20)
[2023-10-01 18:33] LABS: Troponin I 0.171 ng/ml
[2023-10-01] MEDS: VANCOCIN 540 MG IV (19:39)
[2023-10-01 20:12] LABS: Glucose - Point of Care 144 mg/dl (70-99)
[2023-10-01] MEDS: OFIRMEV 100 IV (20:26)
--- NOTE | 2023-10-01 21:51 | W.PN.UPDATE ---
Addendum entered and electronically signed by LENORA Montgomery 10/02/23 07:05:
Tow Motor Mechanic made aware
Addendum entered and electronically signed by LENORA Montgomery 10/02/23 06:51:
Patient is on Eliquis 2.5mg PO BID
Original Note:
Update Note
Progress Note Update
CAR EXAMINER called
Prior to CAR EXAMINER RN notified COMBINATION MACHINE TENDER patient Temp 103.o,BP 144/78, oxygen 99 on RA, hr 130, IV Tylenol given x 1
CAR EXAMINER was called due to low BP, 88/48-97/58, HR 120's, 93-94% placed on O2 2l, RR 24, mild drowsiness noted, Hypotensive likely due to Lasix
nss bolus 250
Midodrine 10mg PO once
stat labs
Stat Chest Xray -negative
lab results noted, procal neg, lactic acid neg, mag 1.5 magnesium repleted, WBC elevated, Troponin high 0.304, will check in AM.
Temp 99.3, BP 109/53, RR 20, HR 100, Patient sleeping comfortably at present per RN
Blood culture, MRSA pending, on Antibiotic currently.
[2023-10-01 21:58] LABS: % Basophils 0.2 % (0-2); % Immature Granulocytes 0.4 % (0-0.5); % Monocytes 5.8 % (1.7-9.3); % Neutrophils 90.6 % (42.2-75.2); Absolute Immature Granulocytes 0.1 10^3/uL (0-0.05); Absolute Lymphocytes 0.3 10^3/uL (1.2-3.4); Absolute Monocytes 0.7 10^3/uL (0.1-0.6); Absolute Neutrophils 10.2 10^3/uL (1.4-6.5); Hemoglobin 11.7 g/dL (13.0-18.0); Mean Corp Hgb Conc. 35.5 g/dL (33.0-37.0); Mean Corpuscular Hgb 30.5 pg (27.0-31.0); Mean Corpuscular Volume 85.9 fL (80.0-94.0); Mean Platelet Volume 10.2 fL (7.4-10.4); Nucleated Red Blood Cells % 0 % (-); Platelet Count 149 10^3/uL (130-400); Red Blood Cell Count 3.84 10^6/uL (4.70-6.10); Red Cell Dist. Width 14.5 % (11.5-14.5); White Blood Cell Count 11.3 10^3/uL (4.8-10.8)
[2023-10-01 22:05] LABS: Lactic Acid 1.9 mmol/L (0.7-2.0)
[2023-10-01] MEDS: ProAmatine 10 MG PO (22:18)
[2023-10-01 22:19] LABS: ALT (SGPT) 14 U/L (0-50); AST (SGOT) 25 U/L (17-59); Albumin 4.2 g/dl (3.5-5.0); Alkaline Phosphatase 42 U/L (38-126); Blood Urea Nitrogen 55 mg/dl (9-20); Calcium 9.7 mg/dl (8.4-10.2); Carbon Dioxide 25 mmol/L (22-30); Chloride 96 mmol/L (98-107); Estimated Creatinine Clearance 27 ml/min; Glucose 171 mg/dl (70-99); Magnesium 1.5 mg/dl (1.6-2.3); Potassium 3.6 mmol/L (3.5-5.1); Sodium 135 mmol/L (135-145); Total Bilirubin 1.5 mg/dl (0.2-1.3); Total Protein 6.5 g/dl (6.3-8.2)
[2023-10-01] MEDS: XALATAN OPHTHALMIC SOLUTION 1 DROP LEFT EYE (22:19)
[2023-10-01] MEDS: NSS 500 IV (22:20)
[2023-10-01] MEDS: MELATONIN PO (22:21)
[2023-10-01] MEDS: MAGNESIUM SULFATE 50 IV (23:01)
[2023-10-02] VITALS (9 sets, daily range): BP systolic 100–149; BP diastolic 52–74; BMI 25.0
[2023-10-02 00:53] LABS: Troponin I 0.304 ng/ml
[2023-10-02] MEDS: TYLENOL 650 MG PO ×3 (01:11→13:58)
[2023-10-02] MEDS: MELATONIN 3 MG PO ×2 (02:52→21:50)
[2023-10-02] MEDS: STERILE WATER FOR INJECTION 10 ML IV ×2 (05:26→17:01)
[2023-10-02] MEDS: MAXIPIME 1000 MG IV ×2 (05:26→17:01)
[2023-10-02 06:47] LABS: % Basophils 0.3 % (0-2); % Immature Granulocytes 0.3 % (0-0.5); % Monocytes 3.2 % (1.7-9.3); % Neutrophils 92.2 % (42.2-75.2); Absolute Lymphocytes 0.5 10^3/uL (1.2-3.4); Absolute Monocytes 0.4 10^3/uL (0.1-0.6); Absolute Neutrophils 12.1 10^3/uL (1.4-6.5); Hematocrit 38.4 % (39.0-52.0); Hemoglobin 13.2 g/dL (13.0-18.0); Mean Corp Hgb Conc. 34.4 g/dL (33.0-37.0); Mean Corpuscular Hgb 30.3 pg (27.0-31.0); Mean Corpuscular Volume 88.3 fL (80.0-94.0); Mean Platelet Volume 10.4 fL (7.4-10.4); Nucleated Red Blood Cells % 0 % (-); Platelet Count 153 10^3/uL (130-400); Red Blood Cell Count 4.35 10^6/uL (4.70-6.10); Red Cell Dist. Width 14.5 % (11.5-14.5); Vancomycin Random 19.6 ug/ml; White Blood Cell Count 13.1 10^3/uL (4.8-10.8)
[2023-10-02 06:54] LABS: ALT (SGPT) 20 U/L (0-50); AST (SGOT) 62 U/L (17-59); Albumin 4.4 g/dl (3.5-5.0); Alkaline Phosphatase 43 U/L (38-126); Blood Urea Nitrogen 55 mg/dl (9-20); Calcium 9.8 mg/dl (8.4-10.2); Carbon Dioxide 27 mmol/L (22-30); Chloride 93 mmol/L (98-107); Estimated Creatinine Clearance 29 ml/min; Glucose 133 mg/dl (70-99); Potassium 4.3 mmol/L (3.5-5.1); Sodium 136 mmol/L (135-145); Total Protein 7.2 g/dl (6.3-8.2); eGFR 31.71
[2023-10-02 06:57] LABS: Troponin I 0.462 ng/ml
--- NOTE | 2023-10-02 07:33 | RR ---
A Rapid Response was called on this patient, please see Rapid Response form. WARP TYING MACHINE TENDER called after rectal temp 103.0 with no improvement after giving IV tylenol. Patient displaying rigors. Patient's BP also dropped from 144/78 to 88/48. HR was sustaining
in 120s. WARP TYING MACHINE TENDER was called and patient placed on cooling blanket, labs drawn, given NS bolus and midodrine. Patient placed on 2LNC sating at 97%. Chest x-ray done - negative. Lactic - negative. Procal - negative. Magnesium 1.5 - repleted. Vitals
improved - temp 99.3, BP 109/53, RR 20, HR 100s. Trops have yet to peak. Provider aware. Patient with no complaints of chest pain. Will continue to monitor.
[2023-10-02] MEDS: DUONEB 3 ML INH ×2 (07:36→19:31)
--- NOTE | 2023-10-02 08:25 | W.PN.CD ---
Addendum entered and electronically signed by Gama Boogie MD 10/02/23 11:57:
87 yo male with PMH of chronic systolic HF, permanent A fib on eliquis CKD3b, admitted with heart failure. He is also being evaluated for fever/sepsis by hospitalist team. We are consulted for acute on chronic systolic HF. Exam with irregular
rhythm, II/ systolic murmur at apex, 1+ LE edema. Cr 2.0 (stable).
Continue lasix 40mg IV bid, with close monitoring of labs and tele. If BP improves, can increase to 80mg IV bid if diuresis slows.
Original Note:
Today's Communication / Plan
-
continue IV diuresis as BP allows, follow daily weights.
Impression / Plan
-
HFrEF (EF 35-40%) - acute on chronic
-Echo 08/19/2022: LVEF 35%. Severe inferolateral, inferoseptal and inferior hypokinesis.
-Moderate MR�eccentric massively dilated left and right atria.
-Diuresis with furosemide 40 mg IV twice daily, this requires monitoring.
- GDMT as tolerated, this is limited by his renal function and hypotension.
-On Toprol 25 mg once a day.
-Daily weight, BMP, & I/Os.
-HF education.
Non-ischemic myocardial injury - acute.
-secondary to BRIE on chronic CKD, sepsis and acute HFrEF.
-denies any chest pain.
-trend serial troponin to peak.
-continue Eliquis 2.5 mg twice a day.
Permanent Atrial Fibrillation - rate controlled on Toprol.
-Oral Anticoagulation: Eliquis 2.5mg PO BID (age 86, creatinine > 1.5).
-[id number] score at least 7 (Heart failure, HTN, age 75 or more, Diabetes Mellitus, prior CVA).
CKD3b - acute on chronic.
-Follow with IV diuresis.
-managed by Dr. Mayorga.
HTN - hypotension in the setting of fever and sepsis.
-improved BP after IVF.
-Continue Toprol.
UTI/urinary retention - managed by Urology.
-indwelling Donovan.
-fever managed by hospitalist.
NIDDM - per primary.
CVA, while warfarin was on hold for epidural (09/2020)
HLD, on Lipitor & Tricor
Mild to moderate, eccentric mitral regurgitation
BRIONNA, reports CPAP intolerant
Subjective:
c/o feeling tired this am.
denies CP or SOB or palps.
Physical Exam
Vital Signs/Labs
Vital Signs
Temp Pulse Resp BP Pulse Ox
98.3 F 86 20 112/62 95
10/02/23 05:41 10/02/23 08:22 10/02/23 08:22 10/02/23 08:22 10/02/23 08:22
10/01/23 10/02/23 10/03/23
06:59 06:59 06:59
Actual Weight 83.092 kg 83.518 kg
10/02/23 06:19
10/02/23 06:19
APTT Cancelled 10/01/23 13:15
Magnesium 1.5 mg/dl (1.6-2.3) L 10/01/23 21:54
Triglycerides 76 mg/dl (10-149) 10/01/23 07:07
LDL Cholesterol, Calc 91 mg/dl 10/01/23 07:07
VLDL Cholesterol, Calc 15 mg/dl (0-30) 10/01/23 07:07
HDL Cholesterol 45 mg/dl 10/01/23 07:07
09/30/23
04:52
Rbg-E-Kuzszcwvygg Pept 4200
LAB Results
09/30/23 09/30/23 09/30/23
04:52 07:56 14:34
Troponin I 0.048 H* 0.049 H* 0.059 H*
09/30/23 10/01/23 10/01/23
20:04 01:39 07:07
Troponin I 0.090 H* D 0.121 H* D 0.130 H*
10/01/23 10/01/23 10/02/23
12:28 17:56 00:12
Troponin I 0.138 H* 0.171 H* 0.304 H* D
10/02/23
06:19
Troponin I 0.462 H* D
Physical Exam
Constitutional: No acute distress
EENT: Anicteric
Cardiovascular: Rhythm/rate is irregular and Systolic murmur present
Respiratory: Respiratory effort normal and Other (diminished b/l bases)
GI: Soft, Non tender and Normal bowel sounds
Neuro/Psych: AO x 3
Other: Skin (warm, dry)
Data Reviewed
-
Date of Service: October 02, 2023
Medical Decision Making: Reviewed Test Results
EKG: Tracing Personally Visualized and interpreted
Labs: Labs Reviewed by me
Old Records: Reviewed
[2023-10-02 08:46] LABS: Glucose - Point of Care 118 mg/dl (70-99)
--- NOTE | 2023-10-02 08:57 | W.PN.HOSP.TC ---
Addendum entered and electronically signed by Natasha Singh MD 10/02/23 14:39:
patient had significant rigors this afternoon then complaining of left hip pain radiating down leg. per he has had coccyx pain at home. patient with difficulty flexing hip. Area is tender, not red or warm.
-will obtain lumbar spine and hip x-rays
-lidocaine patch
-sx suggestive sciatica, will trial low dose gabapentin
updated at bedside
less concern for infection dieudonne with gram negative bacteremia
Original Note:
Today's Communication/Plan
-
IV Lasix
IV Cefepime
Donovan catheter
PT/OT
appreciate consultants
updated
Assessment / Plan
Assessment / Plan
87yo M with PMHx of RBBB, HLD, Afib on eliquis, CKD stage 3B, anxiety d/co HTN, HFmrEF, moderate TR, moderate MR, DM, hx of CVA, BRIONNA came with chest congestion and SOB, found to be in CHF with elevated proBNP 4200. EKG without new changes, troponin
chronically elevated but started to trend up. Chest symptoms resolved with diuresis. Hospital course complicated by high fevers and finding of gram negative bacteremia.
CT Chest
IMPRESSION:
Pleural calcifications compatible with previous asbestos exposure.
Linear densities within both lower lungs, compatible with linear atelectasis and/or scarring.
Minimal peripheral interstitial fibrosis in the lower lungs. No evidence for honeycombing.
Dense coronary artery calcifications and/or stents. Please correlate with symptoms of and risk factors for coronary artery disease, with further workup as clinically appropriate..
The heart is enlarged. The main pulmonary artery is enlarged, suggesting pulmonary hypertension.
Dilation of the visualized calyces within both upper kidneys, which appears new since examination of October 08, 2020. Please correlate with any abnormality in renal function. As warranted, consider further evaluation with renal ultrasound or CT of
the abdomen and pelvis.
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
#CAD
#Afib, permanent
#Troponin elevation - non [place] Troponin Elevation
#Moderate MR
#Moderate TR
-patient is on lasix 60mg PO QD at home
-continue aspirin
-heparin gtt stopped, DRILLING FIELD SPECIALIST Eliquis resumed
-appreciate Cardiology
-continue to trend Troponin
-Lasix 40mg IV BID
-DRILLING FIELD SPECIALIST Metop XL
-TTE
TSH WNL
LDL 91
Fever
Gram negative mariah Bacteremia
-IV Cefepime initiated on 09/30
-Stop IV Vancomycin
-F/U final blood culture
-F/U urine culture
CKD III
-creatine stable
-monitor closely with diuresis
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
#Lung fibrosis
Outpatient pulm
bronchodilators
#b/l renal calyces enlargement, concern for BPH
Hydronephrosis
Retention
-s/p replacement donovan catheter
Finasteride/Tamsulosin
CKD stable - watch Cr
-appreciate Urology
#DM type 2 with nephropathy
Accuchecks, Insulin SS, DM diet
#Sacral wound
Wound care
#GERD
#HLD
#Essential HTN
DVT ppx on Elqiuis
Full code
I have spent at least 58min reviewing chart, test results, communication with consultants, family and direct patient care
Anticipated Discharge: > 48 hours
Subjective/Interval History
-
Date of Service: October 02, 2023
states he is feeling okay
denies abdominal pain
chronic back pain, nothing new
Objective Data
-
Labs:
Laboratory Results
10/01/23 10/02/23
21:54 06:19
WBC 11.3 H 13.1 H
Hgb 11.7 L 13.2
Hct 33.0 L 38.4 L
Plt Count 149 153
Sodium 135 136
Potassium 3.6 4.3
Chloride 96 L 93 L
Carbon Dioxide 25 27
BUN 55 H 55 H
Creatinine 2.1 H 2.0 H
Glucose 171 H 133 H
Calcium 9.7 9.8
Total Bilirubin 1.5 H 2.0 H
AST 25 62 H
ALT 14 20
Alkaline Phosphatase 42 43
Vital Signs:
Vital Signs
Temp Pulse Resp BP Pulse Ox
98.3 F 86 20 112/62 95
10/02/23 05:41 10/02/23 08:22 10/02/23 08:22 10/02/23 08:22 10/02/23 08:22
I&O
10/01/23 10/02/23 10/03/23
06:59 06:59 06:59
Intake Total 240 / 240 600 / 600
Output Total 5700 / 5700
Balance 240 / 240 -5100 / -5100
Review of Systems
-
History Source: Patient
All other systems: Reviewed and negative
Physical Exam
-
General: No Apparent Distress
HEENT: PERRLA
Cardiac: Irregular Rhythm and JVD; Negative Tachycardic
GI: Soft, Nontender and Nondistended
Musculoskeletal: No Clubbing, No Cyanosis and No Edema
Skin: Warm
Neuro: Awake, Alert, Oriented and AO x 3
Psych: Calm
Data Reviewed
-
Diagnostic Radiology: Report Reviewed by me
Labs: Labs Reviewed by me
[2023-10-02] MEDS: NOVOLOG FLEXPEN-LOW RESISTANCE SC ×2 (09:39→12:57)
[2023-10-02] MEDS: PROTONIX 20 MG PO (09:42)
[2023-10-02] MEDS: FLOMAX 0.4 MG PO ×2 (09:42→17:00)
[2023-10-02] MEDS: ZOLOFT 50 MG PO (09:42)
[2023-10-02] MEDS: TOPROL XL 25 MG PO (09:43)
[2023-10-02] MEDS: TRICOR 48 MG PO (09:43)
[2023-10-02] MEDS: ELIQUIS 2.5 MG PO ×2 (09:43→21:50)
[2023-10-02] MEDS: METAMUCIL, KONSYL 1 PACKET PO (09:44)
[2023-10-02] MEDS: PROSCAR 5 MG PO (09:44)
[2023-10-02] MEDS: B COMPLEX w/VITAMIN C 1 CAPLET PO (09:51)
[2023-10-02] MEDS: LASIX 40 MG IV ×2 (09:54→16:59)
[2023-10-02] MEDS: DUONEB INH ×2 (11:13→15:28)
--- NOTE | 2023-10-02 11:13 | W.PN.URO.CBU ---
Today's Communication / Plan
-
pt to f/u with Dr Selvin solis an outpatient
Assessment / Plan
-
Prostatomegaly with Urinary Retention, bilateral hydronephrosis and elevated serum creatinine c/w obstructive uropathy
Diagnosis
-
Date of Service: October 02, 2023
-
Patient Diagnosis:
Prostatomegaly with Urinary Retention, bilateral hydronephrosis and elevated serum creatinine c/w obstructive uropathy
Subjective
-
Donovan placed on order of hospitalist
Objective
-
Vital Signs
Temp Pulse Resp BP Pulse Ox
98.3 F 85 20 112/62 95
10/02/23 05:41 10/02/23 09:43 10/02/23 08:22 10/02/23 09:43 10/02/23 08:22
Intake and Output
10/01/23 10/02/23 10/03/23
06:59 06:59 06:59
Intake Total 240 / 240 600 / 600
Output Total 5700 / 5700
Balance 240 / 240 -5100 / -5100
Intake:
Oral fluids 240 / 240 600 / 600
Output:
Urine, Donovan 3550 / 3550
Straight cath output 2150 / 2150
Other:
How many times incontinent 6
SATURATED amount urine
Laboratory Results
10/02/23 06:19
10/02/23 06:19
Physical Exam
-
General - well developed, well nourished, no acute distress
Chest - clear bilaterally
Abdomen - soft, non-tender, positive bowel sounds, no CVAT, no incisional pain or distention
Genitalia - normal
Rectal - normal
Skin - warm & dry with no rash
Neuro - AOx3, no motor deficits
Extremities - no clubbing, no cyanosis, no edema
Incision - clean, dry
Dressing - clean, dry, intact
[2023-10-02 12:43] LABS: Glucose - Point of Care 149 mg/dl (70-99)
[2023-10-02 13:28] LABS: Troponin I 0.486 ng/ml
[2023-10-02] MEDS: MAGNESIUM OXIDE PO (14:00)
[2023-10-02] MEDS: MAGNESIUM OXIDE 250 MG PO (14:00)
[2023-10-02] MEDS: LIDOCAINE 4% PATCH 1 PATCH TOPICAL (14:43)
[2023-10-02] MEDS: NEURONTIN 100 MG PO ×2 (14:43→21:50)
[2023-10-02] MEDS: MORPHINE SULFATE 1 MG IV (14:44)
--- NOTE | 2023-10-02 14:58 | W.PN.URO.CBU ---
Today's Communication / Plan
-
Donovan or CIC are acceptable options
Assessment / Plan
-
Prostatomegaly with Urinary Retention, bilateral hydronephrosis and elevated serum creatinine c/w obstructive uropathy
Diagnosis
-
Date of Service: October 02, 2023
-
Patient Diagnosis:
Prostatomegaly with Urinary Retention, bilateral hydronephrosis and elevated serum creatinine c/w obstructive uropathy
Objective
-
Vital Signs
Temp Pulse Resp BP Pulse Ox
99.6 F 83 18 108/62 94
10/02/23 13:00 10/02/23 12:25 10/02/23 12:25 10/02/23 12:25 10/02/23 12:25
Intake and Output
10/01/23 10/02/23 10/03/23
06:59 06:59 06:59
Intake Total 240 / 240 600 / 600
Output Total 5700 / 5700
Balance 240 / 240 -5100 / -5100
Intake:
Oral fluids 240 / 240 600 / 600
Output:
Urine, Donovan 3550 / 3550
Straight cath output 2150 / 2150
Other:
How many times incontinent 6
SATURATED amount urine
Laboratory Results
10/02/23 06:19
10/02/23 06:19
Physical Exam
-
General - well developed, well nourished, no acute distress
Chest - clear bilaterally
Abdomen - soft, non-tender, positive bowel sounds, no CVAT, no incisional pain or distention
Genitalia - normal
Rectal - normal
Skin - warm & dry with no rash
Neuro - AOx3, no motor deficits
Extremities - no clubbing, no cyanosis, no edema
Incision - clean, dry
Dressing - clean, dry, intact
--- NOTE | 2023-10-02 16:07 | CM ---
Spoke with Maylin at bedside.
Explained he will need PT OT evals when medically ready.
Maintained on 2 liter Oxygen Pox 95%.
said if he needs SNF she would like [facility].
Will need PT OT evlas then place referral in care port.
PLAN Probable SNF after PT OT
[2023-10-02 16:55] LABS: Glucose - Point of Care 196 mg/dl (70-99)
[2023-10-02] MEDS: TYLENOL 325 MG PO (16:59)
[2023-10-02] MEDS: LIPITOR 40 MG PO (17:00)
[2023-10-02] MEDS: LIPITOR 10 MG PO (17:00)
[2023-10-02] MEDS: NOVOLOG FLEXPEN-LOW RESISTANCE 1 UNITS SC (18:13)
[2023-10-02 21:20] LABS: Glucose - Point of Care 100 mg/dl (70-99)
[2023-10-02] MEDS: XALATAN OPHTHALMIC SOLUTION 1 DROP LEFT EYE (21:50)
[2023-10-03] VITALS (7 sets, daily range): BP systolic 90–108; BP diastolic 51–68; BMI 25.6
[2023-10-03] MEDS: MAXIPIME 1000 MG IV ×2 (06:12→17:23)
[2023-10-03] MEDS: STERILE WATER FOR INJECTION 10 ML IV ×2 (06:13→17:23)
[2023-10-03] MEDS: DUONEB 3 ML INH ×3 (07:49→19:28)
[2023-10-03 08:09] LABS: Glucose - Point of Care 144 mg/dl (70-99)
[2023-10-03 08:14] LABS: Hemoglobin 11.4 g/dL (13.0-18.0); Mean Corp Hgb Conc. 34.5 g/dL (33.0-37.0); Mean Corpuscular Volume 86.8 fL (80.0-94.0); Mean Platelet Volume 10.8 fL (7.4-10.4); Platelet Count 147 10^3/uL (130-400); Red Cell Dist. Width 14.6 % (11.5-14.5); White Blood Cell Count 11.2 10^3/uL (4.8-10.8)
[2023-10-03] MEDS: NOVOLOG FLEXPEN-LOW RESISTANCE SC (08:28)
[2023-10-03 08:48] LABS: Troponin I 0.354 ng/ml
[2023-10-03] MEDS: B COMPLEX w/VITAMIN C 1 CAPLET PO (08:59)
[2023-10-03] MEDS: ELIQUIS 2.5 MG PO ×2 (08:59→20:15)
[2023-10-03] MEDS: PROSCAR 5 MG PO (09:00)
[2023-10-03] MEDS: ZOLOFT 50 MG PO (09:00)
[2023-10-03] MEDS: PROTONIX 20 MG PO (09:00)
[2023-10-03] MEDS: TRICOR 48 MG PO (09:00)
[2023-10-03] MEDS: LIDOCAINE 4% PATCH 1 PATCH TOPICAL (09:00)
[2023-10-03] MEDS: METAMUCIL, KONSYL 1 PACKET PO (09:00)
[2023-10-03 09:03] LABS: Blood Urea Nitrogen 63 mg/dl (9-20); Calcium 9.5 mg/dl (8.4-10.2); Carbon Dioxide 28 mmol/L (22-30); Chloride 94 mmol/L (98-107); Estimated Creatinine Clearance 27 ml/min; Glucose 141 mg/dl (70-99); Magnesium 2.1 mg/dl (1.6-2.3); Potassium 3.7 mmol/L (3.5-5.1); Sodium 136 mmol/L (135-145)
[2023-10-03] MEDS: TOPROL XL 25 MG PO (09:05)
[2023-10-03] MEDS: LASIX IV (09:05)
[2023-10-03] MEDS: FLOMAX PO (09:05)
--- NOTE | 2023-10-03 09:09 | W.PN.HOSP.TC ---
Today's Communication/Plan
-
hold Lasix this AM, small bolus back
IV Cefepime, awaiting final sensitivities
appreciate Cardiology
appreciate ID
Assessment / Plan
Assessment / Plan
87yo M with PMHx of RBBB, HLD, Afib on eliquis, CKD stage 3B, anxiety d/co HTN, HFmrEF, moderate TR, moderate MR, DM, hx of CVA, BRIONNA came with chest congestion and SOB, found to be in CHF with elevated proBNP 4200. EKG without new changes, troponin
chronically elevated but started to trend up. Chest symptoms resolved with diuresis. Hospital course complicated by high fevers and finding of gram negative bacteremia.
CT Chest
IMPRESSION:
Pleural calcifications compatible with previous asbestos exposure.
Linear densities within both lower lungs, compatible with linear atelectasis and/or scarring.
Minimal peripheral interstitial fibrosis in the lower lungs. No evidence for honeycombing.
Dense coronary artery calcifications and/or stents. Please correlate with symptoms of and risk factors for coronary artery disease, with further workup as clinically appropriate..
The heart is enlarged. The main pulmonary artery is enlarged, suggesting pulmonary hypertension.
Dilation of the visualized calyces within both upper kidneys, which appears new since examination of October 08, 2020. Please correlate with any abnormality in renal function. As warranted, consider further evaluation with renal ultrasound or CT of
the abdomen and pelvis.
Lumbar Spine X-Ray
IMPRESSION:
Moderate to severe multilevel degenerative changes of the lumbar spine without evidence for acute fracture.
Hip X-Ray
IMPRESSION:
No acute osseous abnormality.
Mild/moderate degenerative changes of the left hip.
TTE
CONCLUSIONS
Left ventricle is severely dilated.
Mild concentric left ventricular hypertrophy.
Mid to basal inferoseptal hypokinesis.
LV ejection fraction is 44% by volumetric assessment.
Enlarged right ventricular size.
Very severe biatrial enlargement.
Mild to moderate eccentric mitral regurgitation.
Aortic sclerosis without stenosis.
Moderate tricuspid regurgitation.
Estimated pulmonary artery pressure of 40-45 mmHg, assuming a right atrial
pressure of 8 mmHg.
No significant change since the prior study of 08/19/2022 although today the
LVEF looks better than the reported 35-40% on the 08/2022 study.
Indications:
heart failure
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
#CAD
#Afib, permanent
#Troponin elevation - non CT Troponin Elevation
#Moderate MR
#Moderate TR
-patient is on lasix 60mg PO QD at home
-continue aspirin
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
-appreciate Cardiology
-s/p IV Diuresis --> hold AM lasix with borderline BP/ patient spiking fevers overnight (updated cardiology)
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
-TTE results above
TSH WNL
LDL 91
Fever
Klebsiella Pneumonia Bacteremia
-IV Cefepime initiated on 09/30
-Stop IV Vancomycin
-F/U final blood culture
-F/U urine culture
-consult ID
-fevers overnight and borderline BP - give 250cc bolus this AM
Left Hip/Lower Back Pain, Acute on Chronic
Sciatica
-started low dose Gabapentin on 10/01, lidocaine patch
-PT/OT
-area is slightly improved today, not red or swollen or exquisitely tender
CKD III
-creatine stable
-monitor closely with diuresis
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
#Lung fibrosis
Outpatient pulm
bronchodilators
#b/l renal calyces enlargement, concern for BPH
Hydronephrosis
Retention
-s/p replacement donovan catheter
Finasteride/Tamsulosin
CKD stable - watch Cr
-appreciate Urology
#DM type 2 with nephropathy
Accuchecks, Insulin SS, DM diet
#Sacral wound
Wound care
#GERD
#HLD
#Essential HTN
DVT ppx on Elqiuis
Full code
I have spent at least 58min reviewing chart, test results, communication with consultants, family and direct patient care
Anticipated Discharge: > 48 hours
Subjective/Interval History
-
Date of Service: October 03, 2023
feeling well this morning
does not like cooling blanket
right hip pain improved
Objective Data
-
Labs:
Laboratory Results
10/03/23
07:20
WBC 11.2 H
Hgb 11.4 L
Hct 33.0 L
Plt Count 147
Sodium 136
Potassium 3.7
Chloride 94 L
Carbon Dioxide 28
BUN 63 H
Creatinine 2.1 H
Glucose 141 H
Calcium 9.5
Vital Signs:
Vital Signs
Temp Pulse Resp BP Pulse Ox
97.1 F 128 17 90/66 95
10/03/23 07:20 10/03/23 08:40 10/03/23 07:51 10/03/23 08:40 10/03/23 07:51
I&O
10/02/23 10/03/23 10/04/23
06:59 06:59 06:59
Intake Total 600 / 600 240 / 240
Output Total 5700 / 5700 1825 / 1825
Balance -5100 / -5100 -1585 / -1585
Review of Systems
-
History Source: Patient
All other systems: Reviewed and negative
Physical Exam
-
General: No Apparent Distress
HEENT: PERRLA
Cardiac: Irregular Rhythm and JVD; Negative Tachycardic
GI: Soft, Nontender and Nondistended
Musculoskeletal: No Clubbing, No Cyanosis, No Edema and Other (left hip not red, warm or swollen)
Skin: Warm
Neuro: Awake, Alert, Oriented and AO x 3
Psych: Calm
Data Reviewed
-
Diagnostic Radiology: Report Reviewed by me
Labs: Labs Reviewed by me
[2023-10-03] MEDS: NSS 250 IV (09:20)
[2023-10-03] MEDS: DUONEB INH (11:50)
--- NOTE | 2023-10-03 12:00 | CON.ID ---
Consultation
-
Date/Time Consultation Requested: October 03, 2023 0838
Date/Time Consultation Performed: October 03, 2023 1200
Requesting Provider: Dr. Natasha Singh
Performing Provider: Dr. Madelin Bull
Reason for Consultation: Bacteremia
Chief Complaint / Past History
Chief Complaint
SOB
History of Present Illness
History obtained from pt, his at bedside and review of medical records. He is a 87 year old male with h/o BPH, HFrEF, Afib, DM who presented to ED 09/30/23 with acute onset of SOB. +cough with yellow sputum. No fever of chills. CXR neg. Chest
CT: no PNA; incidental finding of bilateral hydronephrosis. On 09/30, he developed persistent fevers requiring cooling blanket and leukocytosis. He was marie-cultured. Pt noted to be in urinary retention, donovan placed 09/30. He was started on
cefepime. Blood cx + Klebsiella. Today, pt reports he is feeling better. No h/o recurrent UTI. No recent dysuria, flank pain. No fever at home.
Past History
Additional Past Medical History:
Hypertension
Diabetes mellitus
CVA
CKD 3B
Atrial fibrillation
Heart failure with reduced EF
Mitral regurgitation
Tricuspid regurgitation
BPH
Ventral hernia
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
Anxiety
Sleep apnea
Bilateral TKA
Allergy History:
No Known Allergies Allergy (Verified 04/14/23 21:35)
Medications Reviewed: Yes
Current Antibiotics:
Cefepime d2
Social History
Tobacco: Non-Smoker
Alcohol: None
Drug: None
Personal:
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
Family History
Family History: Not Pertinent
Review of Systems
Review of Systems
General: Change in Appetite
HEENT: Negative Headache
Gasteroenterology: Other (no diarrhea); Negative Nausea or Vomiting
Genital / Urological: Negative Dysuria or Flank Pain
Endocrine: Weakness
Neurological: Negative Dizziness
All systems: All other systems were reviewed and were negative
Vital Signs
Temp Pulse Resp BP Pulse Ox
99.8 F 81 12 95/55 96
10/03/23 11:29 10/03/23 11:05 10/03/23 11:05 10/03/23 11:05 10/03/23 11:05
Selected Entries
10/02/23
16:30
Temp 102.5 F H
Physical Exam
Physical Exam
Constitutional: Comfortable
Eyes: No Conjunctival Hemorrhage and Sclera Anicteric
Cardiovascular: Irregular Rate and S1/S2
Pulmonary: Clear
Gastrointestinal: Soft, Non Tender and Non Distended
Genito-Urinary: Donovan and Clear Urine; Negative CVA Tenderness
Extremities: Edema (2+)
Neurological: AO x 3
Lab / Diagnostic Study Results
10/03/23 07:20
10/03/23 07:20
Abs Immat Gran (auto) 0.0 10^3/uL (0-0.05) 10/02/23 06:19
Absolute Neuts (auto) 12.1 10^3/uL (1.4-6.5) H 10/02/23 06:19
Absolute Lymphs (auto) 0.5 10^3/uL (1.2-3.4) L 10/02/23 06:19
Absolute Monos (auto) 0.4 10^3/uL (0.1-0.6) 10/02/23 06:19
Absolute Basos (auto) 0.0 10^3/uL (0-0.2) 10/02/23 06:19
Immature Gran % 0.3 % (0-0.5) 10/02/23 06:19
Neutrophils % 92.2 % (42.2-75.2) H 10/02/23 06:19
Lymphocytes % 4.0 % (20.5-51.1) L 10/02/23 06:19
Monocytes % 3.2 % (1.7-9.3) 10/02/23 06:19
Eosinophils % 0.0 % (0-6) 10/02/23 06:19
Basophils % 0.3 % (0-2) 10/02/23 06:19
ESR 39 mm/hour (0-20) H 10/01/23 07:07
Lactic Acid 1.9 mmol/L (0.7-2.0) 10/01/23 21:36
Procalcitonin 0.18 ng/ml (0.0-0.25) 10/01/23 16:45
Microbiology Results
Micro:
10/01/23 16:25 Urine Culture - Preliminary
Urine Gram negative bacilli
10/01/23 17:56 Blood Culture - Preliminary
Blood/Venous No Growth in 24 hours- Final report to follow
10/01/23 16:45 Blood Culture - Preliminary
Blood/Venous Klebsiella pneumoniae
Gram Stain - Final
09/30/23 16:09 MRSA Screen - Final
Nose No Methicillin Resistant Staphylococcus aureus isolated.
09/30/23: CT chest Pleural calcifications compatible with previous asbestos exposure. Linear densities within both lower lungs, compatible with linear atelectasis and/or scarring. Minimal peripheral interstitial fibrosis in the lower lungs. No
evidence for honeycombing. Dilation of the visualized calyces within both upper kidneys, which appears new since examination of October 08, 2020. Please correlate with any abnormality in renal function. As warranted, consider further evaluation
with renal ultrasound or CT of the abdomen and pelvis.
Assessment / Plan
# Klebsiella pneumoniae 1 of 2 sets bcx's
# Acute urinary retention/bladder outlet obstruction from BPH -> source of bacteremia
# Sepsis: fever, leukocytosis
- Agree with cefepime pending cx data.
-Maintain donovan for now as per Urology.
- Trend temps/wbc.
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
Hypertension
Diabetes mellitus
CVA
CKD 3B
Atrial fibrillation
Heart failure with reduced EF
Mitral regurgitation
Tricuspid regurgitation
BPH
Ventral hernia
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
Anxiety
Sleep apnea
Bilateral TKA
[2023-10-03 13:00] LABS: Glucose - Point of Care 201 mg/dl (70-99)
[2023-10-03] MEDS: MAGNESIUM OXIDE 250 MG PO (13:00)
[2023-10-03] MEDS: NOVOLOG FLEXPEN-LOW RESISTANCE 2 UNITS SC (13:02)
--- NOTE | 2023-10-03 15:35 | W.PN.CD ---
Addendum entered and electronically signed by Syd Miller MD 10/03/23 17:22:
Patient seen and examined. I agree with the note by LENORA Tillman. Mr. Junior is a 87 year old man with HFrEF secondary to non-ischemic cardiomyopathy, Afib, and CKD, who was admitted with volume overload with troponin elevation (favored to be
myocardial injury without infarction), with course has been complicated by sepsis due to GNR bactermia. He was diuresed aggressively yesterday (5L negative). Today on exam he appears euvolemic. He continues to have rigors, though he denies shortness
of breath or chest pain. Echo yesterday demonstrated stable to mildly improved LVEF compared to 2022. I agree that we should hold diuresis today given his mild hypotension and euvolemic exam. Can consider resuming oral diuretic tomorrow.
Original Note:
Today's Communication / Plan
-
holding Lasix due to hypotension
Impression / Plan
-
HFrEF (EF 35-40%) - acute on chronic
-Echo 08/19/2022: LVEF 35%. Severe inferolateral, inferoseptal and inferior hypokinesis.
-Moderate MR�eccentric massively dilated left and right atria.
-GDMT as tolerated, this is limited by his renal function and hypotension.
-On Toprol 25 mg once a day.
-Holding Lasix today due to hypotension.
-Daily weight, BMP, & I/Os.
-HF education.
Non-ischemic myocardial injury - acute.
-secondary to RBIE on chronic CKD, sepsis and acute HFrEF.
-denies any chest pain.
-trend serial troponin to peak.
-continue Eliquis 2.5 mg twice a day.
Permanent Atrial Fibrillation - rate controlled on Toprol.
-Oral Anticoagulation: Eliquis 2.5mg PO BID (age 86, creatinine > 1.5).
-[id number] score at least 7 (Heart failure, HTN, age 75 or more, Diabetes Mellitus, prior CVA).
CKD3b - acute on chronic.
-Follow with IV diuresis.
-managed by Dr. Mayorga.
HTN - hypotension in the setting of fever and sepsis.
-improved BP after IVF.
-Continue Toprol.
UTI/urinary retention - managed by Urology.
-indwelling Donovan.
-fever managed by hospitalist.
NIDDM - per primary.
CVA, while warfarin was on hold for epidural (09/2020)
HLD, on Lipitor & Tricor
Mild to moderate, eccentric mitral regurgitation
BRIONNA, reports CPAP intolerant
Subjective:
c/o feeling tired this am.
denies CP or SOB or palps.
Physical Exam
Vital Signs/Labs
Vital Signs
Temp Pulse Resp BP Pulse Ox
99.8 F 82 14 95/55 95
10/03/23 11:29 10/03/23 15:16 10/03/23 15:16 10/03/23 11:05 10/03/23 15:16
10/02/23 10/03/23 10/04/23
06:59 06:59 06:59
Actual Weight 83.518 kg 85.417 kg
10/03/23 07:20
10/03/23 07:20
APTT Cancelled 10/01/23 13:15
Magnesium 2.1 mg/dl (1.6-2.3) 10/03/23 07:20
Triglycerides 76 mg/dl (10-149) 10/01/23 07:07
LDL Cholesterol, Calc 91 mg/dl 10/01/23 07:07
VLDL Cholesterol, Calc 15 mg/dl (0-30) 10/01/23 07:07
HDL Cholesterol 45 mg/dl 10/01/23 07:07
09/30/23
04:52
Ufh-Y-Lydmvivtjgr Pept 4200
LAB Results
09/30/23 10/01/23 10/01/23
20:04 01:39 07:07
Troponin I 0.090 H* D 0.121 H* D 0.130 H*
10/01/23 10/01/23 10/02/23
12:28 17:56 00:12
Troponin I 0.138 H* 0.171 H* 0.304 H* D
10/02/23 10/02/23 10/03/23
06:19 12:26 07:20
Troponin I 0.462 H* D 0.486 H* 0.354 H*
Physical Exam
Constitutional: No acute distress
EENT: Anicteric
Cardiovascular: Rhythm/rate is irregular
Respiratory: Respiratory effort normal
GI: Soft and Non tender
Neuro/Psych: AO x 3
Other: Skin (warm, dry)
Data Reviewed
-
Date of Service: October 03, 2023
Medical Decision Making: Reviewed Test Results
EKG: Report Reviewed by me
Labs: Labs Reviewed by me
Old Records: Reviewed
[2023-10-03 16:39] LABS: Glucose - Point of Care 161 mg/dl (70-99)
[2023-10-03] MEDS: NOVOLOG FLEXPEN-LOW RESISTANCE 1 UNITS SC (17:21)
[2023-10-03] MEDS: LIPITOR 40 MG PO (17:22)
[2023-10-03] MEDS: FLOMAX 0.4 MG PO (17:22)
[2023-10-03] MEDS: LIPITOR 10 MG PO (17:22)
[2023-10-03] MEDS: TYLENOL 650 MG PO (20:15)
[2023-10-03] MEDS: NEURONTIN 100 MG PO (20:15)
[2023-10-03] MEDS: XALATAN OPHTHALMIC SOLUTION 1 DROP LEFT EYE (20:16)
[2023-10-03 21:17] LABS: Glucose - Point of Care 183 mg/dl (70-99)
[2023-10-03] MEDS: MELATONIN PO (21:56)
[2023-10-04] VITALS (9 sets, daily range): BP systolic 89–113; BP diastolic 56–68; PULSE 83–102; O2SAT 96; BMI 24.5
[2023-10-04 05:00] LABS: % Basophils 0.4 % (0-2); % Eosinophils 1.4 % (0-6); % Immature Granulocytes 1.1 % (0-0.5); % Lymphocytes 8.8 % (20.5-51.1); % Monocytes 13.6 % (1.7-9.3); % Neutrophils 74.7 % (42.2-75.2); Absolute Eosinophils 0.1 10^3/uL (0-0.7); Absolute Immature Granulocytes 0.1 10^3/uL (0-0.05); Absolute Lymphocytes 0.7 10^3/uL (1.2-3.4); Absolute Monocytes 1.1 10^3/uL (0.1-0.6); Absolute Neutrophils 6.2 10^3/uL (1.4-6.5); Hematocrit 29.6 % (39.0-52.0); Hemoglobin 10.4 g/dL (13.0-18.0); Mean Corp Hgb Conc. 35.1 g/dL (33.0-37.0); Mean Corpuscular Hgb 30.4 pg (27.0-31.0); Mean Corpuscular Volume 86.5 fL (80.0-94.0); Mean Platelet Volume 10.4 fL (7.4-10.4); Nucleated Red Blood Cells % 0 % (-); Platelet Count 144 10^3/uL (130-400); Red Blood Cell Count 3.42 10^6/uL (4.70-6.10); Red Cell Dist. Width 14.6 % (11.5-14.5); White Blood Cell Count 8.3 10^3/uL (4.8-10.8)
[2023-10-04] MEDS: MAXIPIME 1000 MG IV (05:27)
[2023-10-04] MEDS: STERILE WATER FOR INJECTION 10 ML IV ×2 (05:28→14:22)
[2023-10-04 05:35] LABS: Blood Urea Nitrogen 70 mg/dl (9-20); Calcium 9.3 mg/dl (8.4-10.2); Carbon Dioxide 27 mmol/L (22-30); Chloride 94 mmol/L (98-107); Estimated Creatinine Clearance 25 ml/min; Glucose 158 mg/dl (70-99); Magnesium 2.1 mg/dl (1.6-2.3); Potassium 3.6 mmol/L (3.5-5.1); Sodium 135 mmol/L (135-145); eGFR 26.81
[2023-10-04] MEDS: MORPHINE SULFATE 1 MG IV ×2 (05:39→14:17)
[2023-10-04] MEDS: DUONEB 3 ML INH (07:13)
[2023-10-04] MEDS: LIDOCAINE 4% PATCH 1 PATCH TOPICAL (07:51)
[2023-10-04 07:52] LABS: Glucose - Point of Care 170 mg/dl (70-99)
[2023-10-04] MEDS: NOVOLOG FLEXPEN-LOW RESISTANCE 1 UNITS SC (07:52)
[2023-10-04] MEDS: METAMUCIL, KONSYL 1 PACKET PO (07:52)
[2023-10-04] MEDS: PROSCAR 5 MG PO (07:52)
[2023-10-04] MEDS: B COMPLEX w/VITAMIN C 1 CAPLET PO (07:53)
[2023-10-04] MEDS: TRICOR 48 MG PO (07:53)
[2023-10-04] MEDS: TOPROL XL 25 MG PO (07:53)
[2023-10-04] MEDS: PROTONIX 20 MG PO (07:53)
[2023-10-04] MEDS: ZOLOFT 50 MG PO (07:54)
[2023-10-04] MEDS: ELIQUIS 2.5 MG PO ×2 (07:54→21:10)
[2023-10-04 08:26] LABS: Glucose - Point of Care 171 mg/dl (70-99)
--- NOTE | 2023-10-04 10:14 | W.PN.CD ---
Today's Communication / Plan
-
IVF fluids
encourage po
hold lasix
monitor volume
Impression / Plan
-
HFrEF (EF 35-40%) - chronic--currently is dry
-Echo 08/19/2022: LVEF 35%. Severe inferolateral, inferoseptal and inferior hypokinesis.
-Moderate MR�eccentric massively dilated left and right atria.
-GDMT as tolerated, this is limited by his renal function and hypotension.
-On Toprol 25 mg once a day.
-Currently Holding Lasix today due to hypotension.
-ok to give cautious fluid bolus
-Daily weight, BMP, & I/Os.
-HF education.
Non-ischemic myocardial injury - acute.
-secondary to BRIE on chronic CKD, sepsis and acute HFrEF.
-denies any chest pain.
-trend serial troponin to peak.
-continue Eliquis 2.5 mg twice a day.
Permanent Atrial Fibrillation - typcially rate controlled on Toprol.
-mild accelaration of rates, likely physiologic response to sepsis and hypotension, monitor and allow for mildly accerated rateds
-Oral Anticoagulation: Eliquis 2.5mg PO BID (age 86, creatinine > 1.5).
-[id number] score at least 7 (Heart failure, HTN, age 75 or more, Diabetes Mellitus, prior CVA).
CKD3b - acute on chronic.
-Follow with IV diuresis.
-managed by Dr. Mayorga.
HTN - hypotension in the setting of fever and sepsis.
-improved BP after IVF.
-Continue Toprol.
UTI/urinary retention - managed by Urology.
-indwelling Donovan.
-fever managed by hospitalist.
NIDDM - per primary.
CVA, while warfarin was on hold for epidural (09/2020)
HLD, on Lipitor & Tricor
Mild to moderate, eccentric mitral regurgitation
BRIONNA, reports CPAP intolerant
Subjective:
dizzy/LH with movement from chair to cammode
sob improved
TTE: 10/02/23
CONCLUSIONS
-Left ventricular ejection fraction is 35-40%, by visual assessment. Severe
basal to mid inferolateral, inferoseptal, and inferior hypokinesis.
-Enlarged right ventricular size. Normal right ventricular systolic function.
-Massively dilated left atrium. -Massively dilated right atrium.
-Mild to moderate, eccentric mitral regurgitation.
-Aortic sclerosis without stenosis.
-Mild to moderate tricuspid regurgitation. Estimated pulmonary artery pressure
of 25-30 mmHg.
No significant change since the prior study of 10/06/2020.
Physical Exam
Vital Signs/Labs
Vital Signs
Temp Pulse Resp BP Pulse Ox
98.8 F 83 20 110/64 96
10/04/23 09:00 10/04/23 07:20 10/04/23 07:20 10/04/23 07:20 10/04/23 08:00
10/03/23 10/04/23 10/05/23
06:59 06:59 06:59
Actual Weight 85.417 kg 81.873 kg
10/04/23 04:30
10/04/23 04:30
APTT Cancelled 10/01/23 13:15
Magnesium 2.1 mg/dl (1.6-2.3) 10/04/23 04:30
Triglycerides 76 mg/dl (10-149) 10/01/23 07:07
LDL Cholesterol, Calc 91 mg/dl 10/01/23 07:07
VLDL Cholesterol, Calc 15 mg/dl (0-30) 10/01/23 07:07
HDL Cholesterol 45 mg/dl 10/01/23 07:07
09/30/23
04:52
Myz-H-Fmtrlinpcaz Pept 4200
LAB Results
10/01/23 10/01/23 10/02/23
12:28 17:56 00:12
Troponin I 0.138 H* 0.171 H* 0.304 H* D
10/02/23 10/02/23 10/03/23
06:19 12:26 07:20
Troponin I 0.462 H* D 0.486 H* 0.354 H*
Physical Exam
Constitutional: No acute distress
Cardiovascular: Pedal edema is absent and Rhythm/rate is irregular
Respiratory: Respiratory effort normal, Lungs clear to auscul., Wheeze Absent and Crackles Absent
Neuro/Psych: AO x 3
Data Reviewed
-
Date of Service: October 04, 2023
Medical Decision Making: Review of Case with other Provider (Dr Martinez and Nurse Madelin at the bedside pt still seems dry)
EKG: Other (tele with afib mostly rate conrolled sometimes in the 110's)
[2023-10-04] MEDS: NSS 250 IV (10:43)
[2023-10-04] MEDS: TYLENOL 650 MG PO ×2 (11:11→21:11)
[2023-10-04] MEDS: NOVOLOG FLEXPEN-LOW RESISTANCE 2 UNITS SC ×2 (11:12→17:44)
[2023-10-04 11:14] LABS: Glucose - Point of Care 249 mg/dl (70-99)
--- NOTE | 2023-10-04 11:27 | CM ---
PT OT recommended SNF.
Spoke with Maylin she requested Snf referral to [facility] . Referral in care port .
Cardiology involved.
IV antibiotics.
pt has Medicare.
Plan to Snf when located
[2023-10-04] MEDS: DUONEB INH (11:47)
--- NOTE | 2023-10-04 12:36 | W.PN.HOSP.TC ---
Addendum entered and electronically signed by Shahbaz Martinez DO 10/04/23 15:28:
Additional CDI clarification: BRIE on CKD 3B present
Addendum entered and electronically signed by Shahbaz Martinez DO 10/04/23 15:26:
CDI clarification: Unclear when sepsis developed, likely present on admission
Original Note:
Today's Communication/Plan
-
Transition from IV cefepime to oral cefdinir
Hold Lasix, 500 mL IVF bolus
Follow hemodynamics, consider more IVF
Assessment / Plan
Assessment / Plan
#Klebsiella pneumonia bacteremia
#Sepsis secondary to UTI and urine retention
#BPH
-Was initially treated with IV antibiotics including cefepime and vancomycin
-Blood cultures returned positive for Klebsiella pneumonia, IV vancomycin discontinued
-Remains on IV cefepime for gram negative coverage, clinically seems to be improving
-Final blood culture results show Klebsiella pneumonia only resistant to ampicillin
-Remains hemodynamically stable without vasopressors, BP soft today, Lasix held
Plan
-Plan to transition from IV cefepime to oral cefdinir course to complete 7 days of antibiotics
-Continue to hold Lasix, provide judicious bolus for soft blood pressure now
-Continue to monitor hemodynamics, plan resume Lasix when euvolemic
-Planning trial of void today for urine retention
-Continue with tamsulosin and finasteride for BPH
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
#Permanent AF on Eliquis
#Moderate MR
#Moderate TR
-Complex cardiac history with systolic dysfunction and valve dysfunction
-Echocardiogram showed LVEF 44% with moderate TR and MR, pulmonary hypertension seen
-GDMT currently includes beta-dennis, limited by renal dysfunction and hypotension
-Was initially on IV diuretic however blood pressure softened, and it was discontinued
-As of this morning he seems more hypovolemic, giving 500 mL bolus
-Plan to resume oral diuretic dose when euvolemic
#Left Hip/Lower Back Pain, Acute on Chronic
#Sciatica
-Was started on low-dose gabapentin and lidocaine patch, working with PT/OT
-No redness, swelling, or exquisite tenderness on exam today
-PT recommending SNF at discharge, would benefit
#CKD III
-Secondary to diabetic nephropathy, baseline kidney function with creatinine near 2.0
-No known association of AOCD, chronic acidemia, bone mineral disease
-Patient does seem slightly dry today, creatinine slowly uptrending
-Holding Lasix as above, light IV fluids and trend BMP
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
#Lung fibrosis
-Outpatient pulm follow-up at discharge
-Remains on home bronchodilators
#DM type 2 with nephropathy
#Dyslipidemia
-No recent A1c, Home medications include Januvia, atorvastatin
-Currently on insulin sliding scale with Accu-Cheks and carb controlled
-Blood sugar currently well-controlled
#Hypertension
-Home medication includes beta-dennis, loop diuretic; no first-line agents
-Blood pressure currently on the soft side, loop diuretic held as above
#Sacral wound - POA
-Wound care
DVT prophylaxis: Elqiuis
Diet: Carb controlled
CODE STATUS: Full code
Anticipated Discharge: 24 - 48 hours
Subjective/Interval History
-
Date of Service: October 04, 2023
Seen and examined at the bedside. No acute events reported overnight. No acute events per telemetry.
As of this morning he does seem slightly hypovolemic with soft blood pressure and accelerated heart rate. Renal function slightly worse than yesterday with uptrending creatinine from 2.1-2.3. Will provide judicious bolus of 500 mL IV normal saline
and gauge response. Consider further fluids if needed.
He denies any and all complaints. Denies chest pain, shortness of breath, fevers or chills, nausea, vomiting, diarrhea, constipation, abnormal bleeding or bruising, urinary issues, paresthesias or weakness.
Objective Data
-
Labs:
Laboratory Results
10/04/23
04:30
WBC 8.3
Hgb 10.4 L
Hct 29.6 L
Plt Count 144
Sodium 135
Potassium 3.6
Chloride 94 L
Carbon Dioxide 27
BUN 70 H
Creatinine 2.3 H
Glucose 158 H
Calcium 9.3
Vital Signs:
Vital Signs
Temp Pulse Resp BP Pulse Ox
97.5 F 97 22 92/60 97
10/04/23 11:00 10/04/23 11:00 10/04/23 11:00 10/04/23 11:00 10/04/23 11:00
I&O
10/03/23 10/04/23 10/05/23
06:59 06:59 06:59
Intake Total 240 / 240 910 / 910
Output Total 1825 / 1825 1275 / 1275
Balance -1585 / -1585 -365 / -365
Review of Systems
-
History Source: Patient
All other systems: Reviewed and negative
Physical Exam
-
General: Well Nourished, No Apparent Distress and Comfortable
HEENT: Normocephalic, Atraumatic, Moist Mucous Membranes and Anicteric
Respiratory: Clear to Auscultation and Non Labored Respirations; Negative Wheezes, Rales or Rhonchi
Cardiac: S1/S2, Irregular Rhythm and Murmur; Negative JVD or Tachycardic
GI: Soft, Nontender, Nondistended and Normal Bowel Sounds
Musculoskeletal: No Clubbing, No Cyanosis and No Edema
Skin: Warm and Dry; Negative Rash
Neuro: AO x 3, Nonfocal/Grossly Intact and Central Nerve's Intact
Data Reviewed
-
Labs: Labs Reviewed by me and Discussed with Patient
--- NOTE | 2023-10-04 14:21 | W.PN.URO.CBU ---
Today's Communication / Plan
-
given obstructive nephropathy, either self CIC or indwelling Donovan are current options
Assessment / Plan
-
Prostatomegaly with Urinary Retention, bilateral hydronephrosis and elevated serum creatinine c/w obstructive uropathy
Diagnosis
-
Date of Service: October 04, 2023
-
Patient Diagnosis:
Prostatomegaly with Urinary Retention, bilateral hydronephrosis and elevated serum creatinine c/w obstructive uropathy
Subjective
-
Donovan removed per med team order --- pt has yet to void
Objective
-
Vital Signs
Temp Pulse Resp BP Pulse Ox
97.5 F 97 22 92/60 97
10/04/23 11:00 10/04/23 11:00 10/04/23 11:00 10/04/23 11:00 10/04/23 11:00
Intake and Output
10/03/23 10/04/23 10/05/23
06:59 06:59 06:59
Intake Total 240 / 240 910 / 910
Output Total 1825 / 1825 1275 / 1275
Balance -1585 / -1585 -365 / -365
Intake:
Oral fluids 240 / 240 660 / 660
IV piggybacks 250 / 250
Output:
Urine, Donovan 182 / 1824 1275 / 1275
Laboratory Results
10/04/23 04:30
10/04/23 04:30
Physical Exam
-
General - well developed, well nourished, no acute distress
Chest - clear bilaterally
Abdomen - soft, non-tender, positive bowel sounds, no CVAT, no incisional pain or distention
Genitalia - normal
Rectal - normal
Skin - warm & dry with no rash
Neuro - AOx3, no motor deficits
Extremities - no clubbing, no cyanosis, no edema
Incision - clean, dry
Dressing - clean, dry, intact
[2023-10-04] MEDS: ROCEPHIN 1000 MG IV (14:22)
[2023-10-04] MEDS: MAGNESIUM OXIDE 250 MG PO (14:22)
--- NOTE | 2023-10-04 14:36 | W.PN.ID1 ---
Date of Service
Date of Service: October 04, 2023
Today's Communication
Narrow cefepime to ceftriaxone.
Assessment / Plan
# Klebsiella pneumoniae 1 of 2 sets bcx's
# Acute urinary retention/bladder outlet obstruction from BPH -> source of bacteremia
# s/p Sepsis; fever, leukocytosis resolved
- Narrow cefepime to ceftriaxone.
-At time of discharge, can transition to cipro
# Conditions PATENTS EXAMINER
Hypertension
Diabetes mellitus
CVA
CKD 3B
Atrial fibrillation
Heart failure with reduced EF
Mitral regurgitation
Tricuspid regurgitation
BPH
Ventral hernia
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
Anxiety
Sleep apnea
Bilateral TKA
Chief Complaint
-: Bacteremia
Subjective / Review of Systems
Donovan removed, voiding trial. Feels OK today.
Vital Signs / Physical Exam
Vital Signs
Vital Signs
Temp Pulse Resp BP Pulse Ox
97.5 F 97 22 92/60 97
10/04/23 11:00 10/04/23 11:00 10/04/23 11:00 10/04/23 11:00 10/04/23 11:00
Physical Exam
Constitutional: No Acute Distress
Gastrointestinal: Soft, Non Tender and Non Distended
Genito-Urinary: Negative CVA Tenderness
Objective Data
Lab Data
Lab Results
10/04/23 04:30
10/04/23 04:30
ESR 39 mm/hour (0-20) H 10/01/23 07:07
APTT Cancelled 10/01/23 13:15
Estimated Creat Clear 25 ml/min 10/04/23 04:30
Lactic Acid 1.9 mmol/L (0.7-2.0) 10/01/23 21:36
Total Bilirubin 2.0 mg/dl (0.2-1.3) H 10/02/23 06:19
AST 62 U/L (17-59) H 10/02/23 06:19
ALT 20 U/L (0-50) 10/02/23 06:19
Alkaline Phosphatase 43 U/L (38-126) 10/02/23 06:19
Most recent labs reviewed.
Micro Results:
10/01/23 16:25 Urine Culture - Final
Urine Klebsiella pneumoniae
10/01/23 16:45 Blood Culture - Final
Blood/Venous Klebsiella pneumoniae
Gram Stain - Final
10/01/23 17:56 Blood Culture - Preliminary
Blood/Venous No Growth in 48 hours- Final report to follow
09/30/23 16:09 MRSA Screen - Final
Nose No Methicillin Resistant Staphylococcus aureus isolated.
09/30/23: CT chest Pleural calcifications compatible with previous asbestos exposure. Linear densities within both lower lungs, compatible with linear atelectasis and/or scarring. Minimal peripheral interstitial fibrosis in the lower lungs. No
evidence for honeycombing. Dilation of the visualized calyces within both upper kidneys, which appears new since examination of October 08, 2020. Please correlate with any abnormality in renal function. As warranted, consider further evaluation
with renal ultrasound or CT of the abdomen and pelvis.
--- NOTE | 2023-10-04 15:15 | PN.CDI ---
CDI
- -
CDI:
Physician Documentation Request
Admit Date: 09/30/23 12:41
Dear Doctor Juan,
Please review the following and provide your response in the progress notes.
Clinical Indicators:
Pt admitted with Acute on chronic HFmrEF exacerbation/found to have gram negative bacteremia with UTI/Obstructive uropathy
Documented per ID consult 10/02, ' Sepsis: fever, leukocytosis...'
Progress note 10/03, ' Sepsis secondary to UTI and urine retention... IV cefepime for gram negative coverage.'
Tmax on 09/30 @21:34 103.9, HR 96 on 09/29 @0635 has been as high as 128 on 10/02, WBC 13.1 on 08/01 ,Respirations 28 on 09/29.
Please clarify the following:
_Sepsis__ was present on admission
__Sepsis _ evolved during hospitalization
Unable to determine
Use of terms such as suspected, likely, concern for, or probable (associated with a specific diagnosis that is being evaluated, monitored, or treated as if it exists) are acceptable and can be coded in the inpatient setting, when documented at the
time of discharge.
Thank you,
Cathy Mojica RN
CDI Specialist
[place] [facility]
Please use your independent medical judgment in providing your response.
--- NOTE | 2023-10-04 15:22 | PN.CDI ---
CDI
- -
CDI:
Physician Documentation Request
Admit Date: 09/30/23 12:41
Dear Doctor Juan,
Please review the following and provide your response in the progress notes.
Clinical Indicators:
Pt admitted with Acute on chronic HFmrEF exacerbation on IV diuresis /found to have gram negative bacteremia with UTI/Obstructive uropathy
Documented per cardiology consult 09/29, ' (CKD 3B with baseline creatinine 1.8.)...CKD3b...- Patient of Dr. Mayorga...'
09/30/23 10/01/23 10/01/23
04:52 07:07 21:54
Creatinine 1.9 H 2.0 H 2.1 H
10/02/23 10/03/23 10/04/23
06:19 07:20 04:30
Creatinine 2.0 H 2.1 H 2.3 H
Clarify which of the following accurately represents the patient's renal status:
BRIE on CKD 3b
CKD 3 b only
Other
Criteria for BRIE*
1 Increase in serum creatinine by > or = to 0.3 mg/dL (> or = to 26.5 micromol/L) within 48 hours, OR
2 Increase in serum creatinine to > or = to 1.5 times baseline, which is known or presumed to have occurred within 7 days, OR
3 Urine volume < 0.5 nL/kg/hour for six hours
Stages of Chronic Kidney Disease*
Level Description GFR
G1 Normal or High >90
G2 Mildly decreased 60-89
G3a Mildly to moderately decreased 45-59
G3b Moderately to severely decreased 30-44
G4 Severely decreased 15-29
G5 Kidney failure <15
Use of terms such as suspected, likely, concern for, or probable (associated with a specific diagnosis that is being evaluated, monitored, or treated as if it exists) are acceptable and can be coded in the inpatient setting, when documented at the
time of discharge.
Thank you,
Cathy Mojica RN
CDI Specialist
[place] [facility]
Please use your independent medical judgment in providing your response.
*Source: Kidney Disease: Improving Global Outcomes (KDIGO) 2012
--- NOTE | 2023-10-04 15:24 | W.PN.UPDATE ---
Addendum entered and electronically signed by Shahbaz Martinez DO 10/04/23 15:26:
Note placed in incorrect chart, please disregard.
Original Note:
Update Note
Progress Note Update
Spoke with gastroenterology, patient has not progressed has helped on steroid therapy, dynamic Lille score not qualifying for response. She has been accepted for transfer to [facility] hepatology for expedited workup of
liver transplant. Consent for transfer is signed and in the chart. Discharge workflow was prepped, order for DC placed in case she has transportation overnight.
[2023-10-04 16:41] LABS: Glucose - Point of Care 205 mg/dl (70-99)
[2023-10-04] MEDS: FLOMAX 0.4 MG PO (17:44)
[2023-10-04] MEDS: LIPITOR 40 MG PO (17:44)
[2023-10-04] MEDS: LIPITOR 10 MG PO (17:44)
[2023-10-04 21:11] LABS: Glucose - Point of Care 172 mg/dl (70-99)
[2023-10-04] MEDS: NEURONTIN 100 MG PO (21:11)
[2023-10-04] MEDS: MELATONIN 3 MG PO (21:11)
[2023-10-04] MEDS: XALATAN OPHTHALMIC SOLUTION 1 DROP LEFT EYE (21:11)
--- NOTE | 2023-10-05 03:11 | PTCARENOTE ---
pt had 12 beat run of Vtach. Asymptomatic, offers no complaints. LAY OUT MAKER made aware, orders for Mag blood draw with AM labs. Plan of care ongoing.
--- NOTE | 2023-10-05 03:29 | W.PN.UPDATE ---
Update Note
Progress Note Update
Patient had 12 beaths of V tach, patient asymptomatic, will draw labs in AM.
[2023-10-05 03:51] VITALS: BP 105/64
[2023-10-05] MEDS: MORPHINE SULFATE 1 MG IV ×2 (04:29→14:27)
[2023-10-05 06:00] VITALS: BMI 24.2
[2023-10-05 06:45] LABS: % Basophils 0.5 % (0-2); % Eosinophils 2.3 % (0-6); % Immature Granulocytes 0.6 % (0-0.5); % Lymphocytes 10.9 % (20.5-51.1); % Monocytes 12.3 % (1.7-9.3); % Neutrophils 73.4 % (42.2-75.2); Absolute Eosinophils 0.2 10^3/uL (0-0.7); Absolute Immature Granulocytes 0.1 10^3/uL (0-0.05); Absolute Lymphocytes 0.9 10^3/uL (1.2-3.4); Absolute Neutrophils 5.8 10^3/uL (1.4-6.5); Hemoglobin 10.7 g/dL (13.0-18.0); Mean Corp Hgb Conc. 34.5 g/dL (33.0-37.0); Mean Corpuscular Hgb 30.1 pg (27.0-31.0); Mean Corpuscular Volume 87.1 fL (80.0-94.0); Mean Platelet Volume 10.7 fL (7.4-10.4); Nucleated Red Blood Cells % 0 % (-); Platelet Count 164 10^3/uL (130-400); Red Blood Cell Count 3.56 10^6/uL (4.70-6.10); Red Cell Dist. Width 14.4 % (11.5-14.5); White Blood Cell Count 7.9 10^3/uL (4.8-10.8)
[2023-10-05 07:20] VITALS: BP 120/64
[2023-10-05 07:30] LABS: Blood Urea Nitrogen 72 mg/dl (9-20); Calcium 9.3 mg/dl (8.4-10.2); Carbon Dioxide 26 mmol/L (22-30); Chloride 97 mmol/L (98-107); Estimated Creatinine Clearance 32 ml/min; Glucose 147 mg/dl (70-99); Potassium 4.2 mmol/L (3.5-5.1); Sodium 136 mmol/L (135-145); eGFR 35.98
[2023-10-05 08:00] LABS: Glucose - Point of Care 175 mg/dl (70-99)
[2023-10-05] MEDS: LIDOCAINE 4% PATCH 1 PATCH TOPICAL (08:03)
[2023-10-05] MEDS: ZOLOFT 50 MG PO (08:11)
[2023-10-05] MEDS: METAMUCIL, KONSYL 1 PACKET PO (08:11)
[2023-10-05] MEDS: ELIQUIS 2.5 MG PO ×2 (08:12→21:04)
[2023-10-05] MEDS: TRICOR 48 MG PO (08:12)
[2023-10-05] MEDS: B COMPLEX w/VITAMIN C 1 CAPLET PO (08:12)
[2023-10-05] MEDS: PROTONIX 20 MG PO (08:12)
[2023-10-05] MEDS: TOPROL XL 25 MG PO (08:12)
[2023-10-05] MEDS: PROSCAR 5 MG PO (08:12)
[2023-10-05] MEDS: NOVOLOG FLEXPEN-LOW RESISTANCE 1 UNITS SC ×2 (08:13→12:06)
--- NOTE | 2023-10-05 10:06 | W.PN.CD ---
Today's Communication / Plan
-
restart home lasix for goal event to mildly negative, trend labs and BP
Impression / Plan
-
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 currently examines euvolemic
-Echo 08/19/2022: LVEF 35%. Severe inferolateral, inferoseptal and inferior hypokinesis.
-Moderate MR�eccentric massively dilated left and right atria.
-GDMT as tolerated, this is limited by his renal function and hypotension.
-On Toprol 25 mg once a day.
-Currently Holding Lasix today due to hypotension.
-Daily weight, BMP, & I/Os.
-HF education.
- would restart home lasix today for goal even to 500 negative; trend Cr and BP
Non-ischemic myocardial injury - acute.
-secondary to BRIE on chronic CKD, sepsis and acute HFrEF.
-denies any chest pain.
Permanent Atrial Fibrillation - rate controlled on Toprol; rate control improved
-mild accelaration of rates, likely physiologic response to sepsis and hypotension, monitor and allow for mildly accelerated rateds
-Oral Anticoagulation: Eliquis 2.5mg PO BID (age 86, creatinine > 1.5).
-[id number] score at least 7 (Heart failure, HTN, age 75 or more, Diabetes Mellitus, prior CVA).
CKD3b - acute on chronic, imporved today after 1L negative yesterday
-Follow with IV diuresis.
-managed by Dr. Mayorga.
HTN - hypotension in the setting of fever and sepsis.
-improved BP
-Continue Toprol.
UTI/urinary retention - managed by Urology.
-indwelling Donovan.
-fever managed by hospitalist.
NIDDM - per primary.
CVA, while warfarin was on hold for epidural (09/2020)
HLD, on Lipitor & Tricor
Mild to moderate, eccentric mitral regurgitation
BRIONNA, reports CPAP intolerant
Subjective:
feeling well, no fevers/chills
sob improved
TTE: 10/02/23
CONCLUSIONS
-Left ventricular ejection fraction is 35-40%, by visual assessment. Severe
basal to mid inferolateral, inferoseptal, and inferior hypokinesis.
-Enlarged right ventricular size. Normal right ventricular systolic function.
-Massively dilated left atrium. -Massively dilated right atrium.
-Mild to moderate, eccentric mitral regurgitation.
-Aortic sclerosis without stenosis.
-Mild to moderate tricuspid regurgitation. Estimated pulmonary artery pressure
of 25-30 mmHg.
No significant change since the prior study of 10/06/2020.
Physical Exam
Vital Signs/Labs
Vital Signs
Temp Pulse Resp BP Pulse Ox
36.9 C 69 20 120/64 93
10/05/23 07:20 10/05/23 07:20 10/05/23 07:20 10/05/23 07:20 10/05/23 07:20
10/04/23 10/05/23 10/06/23
06:59 06:59 06:59
Actual Weight 81.873 kg 80.91 kg
10/05/23 04:43
10/05/23 04:43
APTT Cancelled 10/01/23 13:15
Magnesium 2.0 mg/dl (1.6-2.3) 10/05/23 04:43
Triglycerides 76 mg/dl (10-149) 10/01/23 07:07
LDL Cholesterol, Calc 91 mg/dl 10/01/23 07:07
VLDL Cholesterol, Calc 15 mg/dl (0-30) 10/01/23 07:07
HDL Cholesterol 45 mg/dl 10/01/23 07:07
09/30/23
04:52
[id number] Pept 4200
LAB Results
10/02/23 10/03/23
12:26 07:20
Troponin I 0.486 H* 0.354 H*
Physical Exam
Constitutional: No acute distress, Comfortable and Confusion
Cardiovascular: Rhythm & rate is regular, Pedal edema is absent, JVD pressure is normal (8 mmHg), Systolic murmur absent and Diastolic murmur absent
Respiratory: Respiratory effort normal, Lungs clear to auscul., Wheeze Absent, Crackles Absent and Rhonchi Absent
Neuro/Psych: Alert
Data Reviewed
-
Date of Service: October 05, 2023
Medical Decision Making: Reviewed Test Results and Test Interpretation
Labs: Labs Reviewed by me
[2023-10-05 11:10] VITALS: BP 105/59
--- NOTE | 2023-10-05 11:45 | W.PN.ID1 ---
Date of Service
Date of Service: October 05, 2023
Today's Communication
- Continue ceftriaxone (d5)
-At time of discharge, can transition to cipro 500mg po bid through 10/10/23.
Assessment / Plan
# Klebsiella pneumoniae 1 of 2 sets bcx's
# Acute urinary retention/bladder outlet obstruction from BPH -> source of bacteremia
# s/p Sepsis; fever, leukocytosis resolved
- Failed void trial.
- Continue ceftriaxone (d5)
-At time of discharge, can transition to cipro 500mg po bid through 10/10/23.
# Conditions STRUCTURER
Hypertension
Diabetes mellitus
CVA
CKD 3B
Atrial fibrillation
Heart failure with reduced EF
Mitral regurgitation
Tricuspid regurgitation
BPH
Ventral hernia
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
Anxiety
Sleep apnea
Bilateral TKA
Chief Complaint
-: Bacteremia
Vital Signs / Physical Exam
Vital Signs
Vital Signs
Temp Pulse Resp BP Pulse Ox
99.1 F 69 20 120/64 93
10/05/23 10:00 10/05/23 07:20 10/05/23 07:20 10/05/23 07:20 10/05/23 08:00
Physical Exam
Constitutional: No Acute Distress
Gastrointestinal: Soft, Non Tender and Non Distended
Genito-Urinary: Donovan and Clear Urine; Negative CVA Tenderness
Objective Data
Lab Data
Lab Results
10/05/23 04:43
10/05/23 04:43
ESR 39 mm/hour (0-20) H 10/01/23 07:07
APTT Cancelled 10/01/23 13:15
Estimated Creat Clear 32 ml/min 10/05/23 04:43
Lactic Acid 1.9 mmol/L (0.7-2.0) 10/01/23 21:36
Total Bilirubin 2.0 mg/dl (0.2-1.3) H 10/02/23 06:19
AST 62 U/L (17-59) H 10/02/23 06:19
ALT 20 U/L (0-50) 10/02/23 06:19
Alkaline Phosphatase 43 U/L (38-126) 10/02/23 06:19
Most recent labs reviewed.
Micro Results:
10/01/23 17:56 Blood Culture - Preliminary
Blood/Venous No Growth in 72 hours- Final report to follow
10/01/23 16:25 Urine Culture - Final
Urine Klebsiella pneumoniae
10/01/23 16:45 Blood Culture - Final
Blood/Venous Klebsiella pneumoniae
Gram Stain - Final
09/30/23 16:09 MRSA Screen - Final
Nose No Methicillin Resistant Staphylococcus aureus isolated.
09/30/23: CT chest Pleural calcifications compatible with previous asbestos exposure. Linear densities within both lower lungs, compatible with linear atelectasis and/or scarring. Minimal peripheral interstitial fibrosis in the lower lungs. No
evidence for honeycombing. Dilation of the visualized calyces within both upper kidneys, which appears new since examination of October 08, 2020. Please correlate with any abnormality in renal function. As warranted, consider further evaluation
with renal ultrasound or CT of the abdomen and pelvis.
--- NOTE | 2023-10-05 11:46 | W.PN.HOSP.TC ---
Today's Communication/Plan
-
Transition to oral antibiotics to complete 7 days
Resume oral Lasix
Monitor I's and O's
Assessment / Plan
Assessment / Plan
#Klebsiella pneumonia bacteremia
#Sepsis secondary to UTI and urine retention
#BPH with acute urine retention
-Was initially treated with IV antibiotics including cefepime and vancomycin
-Blood cultures returned positive for Klebsiella pneumonia, IV vancomycin discontinued
-Remains on IV cefepime for gram negative coverage, clinically seems to be improving
-Final blood culture results show Klebsiella pneumonia only resistant to ampicillin
-Remains hemodynamically stable without vasopressors, BP soft today, Lasix held
Plan
-Transition to oral cefdinir course to complete 7 days of antibiotics
-Resume home Lasix dose and monitor I's/O's very closely
-Continue to monitor hemodynamics and trend BMP
-Will need to follow-up with urology outpatient for Donovan catheter removal
-Continue with tamsulosin and finasteride for BPH
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
#Permanent AF on Eliquis
#Moderate MR
#Moderate TR
-Complex cardiac history with systolic dysfunction and valve dysfunction
-Echocardiogram showed LVEF 44% with moderate TR and MR, pulmonary hypertension seen
-GDMT currently includes beta-dennis, limited by renal dysfunction and hypotension
-Was initially on IV diuretic however blood pressure softened, and it was discontinued
-As of this morning he seems more hypovolemic, giving 500 mL bolus
-Resuming Lasix today as above
#Left Hip/Lower Back Pain, Acute on Chronic
#Sciatica
-Was started on low-dose gabapentin and lidocaine patch, working with PT/OT
-No redness, swelling, or exquisite tenderness on exam today
-PT recommending SNF at discharge, would benefit
#CKD III
-Secondary to diabetic nephropathy, baseline kidney function with creatinine near 2.0
-No known association of AOCD, chronic acidemia, bone mineral disease
-Patient does seem slightly dry today, creatinine slowly uptrending
-Holding Lasix as above, light IV fluids and trend BMP
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
-Outpatient pulm follow-up at discharge
-Remains on home bronchodilators
#DM type 2 with nephropathy
#Dyslipidemia
-No recent A1c, Home medications include Januvia, atorvastatin
-Currently on insulin sliding scale with Accu-Cheks and carb controlled
-Blood sugar currently well-controlled
#Hypertension
-Home medication includes beta-dennis, loop diuretic; no first-line agents
-Blood pressure currently on the soft side, loop diuretic held as above
#Sacral wound - POA
-Wound care
DVT prophylaxis: Elqiuis
Diet: Carb controlled
CODE STATUS: Full code
Anticipated Discharge: 24 - 48 hours
Subjective/Interval History
-
Date of Service: October 05, 2023
Seen and examined at the bedside today. No acute events overnight.
Remains hemodynamic stable, afebrile, on room air.
Denies chest pain, shortness of breath, fevers or chills, nausea or vomiting, abnormal bleeding or bruising, urinary issues, paresthesias or weakness.
Objective Data
-
Labs:
Laboratory Results
10/05/23
04:43
WBC 7.9
Hgb 10.7 L
Hct 31.0 L
Plt Count 164
Sodium 136
Potassium 4.2
Chloride 97 L
Carbon Dioxide 26
BUN 72 H
Creatinine 1.8 H
Glucose 147 H
Calcium 9.3
Vital Signs:
Vital Signs
Temp Pulse Resp BP Pulse Ox
99.1 F 69 20 120/64 93
10/05/23 10:00 10/05/23 07:20 10/05/23 07:20 10/05/23 07:20 10/05/23 08:00
I&O
10/04/23 10/05/23 10/06/23
06:59 06:59 06:59
Intake Total 910 / 910 970 / 970
Output Total 1275 / 1275 1999
Balance -365 / -365 -1030 / -1030
Review of Systems
-
History Source: Patient
All other systems: Reviewed and negative
Physical Exam
-
General: Well Nourished, No Apparent Distress and Comfortable
HEENT: Normocephalic, Atraumatic and Moist Mucous Membranes
Respiratory: Clear to Auscultation and Non Labored Respirations; Negative Wheezes, Rales or Rhonchi
Cardiac: Regular Rhythm, S1/S2 and Murmur (Apical blowing systolic murmur); Negative Rub, JVD or Gallop
GI: Soft, Nontender, Nondistended and Normal Bowel Sounds
Genito-urinary: No Costovertebral Tender
Musculoskeletal: No Clubbing, No Cyanosis and No Edema
Skin: Warm, Dry and Normal Turgor; Negative Rash
Neuro: AO x 3, Nonfocal/Grossly Intact and Central Nerve's Intact; Negative Tremors
Data Reviewed
-
Labs: Labs Reviewed by me and Discussed with Patient
[2023-10-05 11:56] LABS: Glucose - Point of Care 152 mg/dl (70-99)
[2023-10-05] MEDS: TYLENOL 650 MG PO (12:03)
[2023-10-05] MEDS: LASIX 60 MG PO (12:04)
[2023-10-05] MEDS: MAGNESIUM OXIDE 250 MG PO (12:05)
[2023-10-05 15:15] VITALS: BP 102/58
[2023-10-05 16:18] LABS: Glucose - Point of Care 144 mg/dl (70-99)
[2023-10-05] MEDS: NOVOLOG FLEXPEN-LOW RESISTANCE SC (16:42)
[2023-10-05] MEDS: LIPITOR 10 MG PO (17:21)
[2023-10-05] MEDS: LIPITOR 40 MG PO (17:22)
[2023-10-05] MEDS: FLOMAX 0.4 MG PO (17:23)
[2023-10-05 19:30] VITALS: BP 106/54
[2023-10-05] MEDS: OMNICEF 300 MG PO (21:04)
[2023-10-05] MEDS: NEURONTIN 100 MG PO (21:04)
[2023-10-05] MEDS: MELATONIN 3 MG PO (21:04)
[2023-10-05] MEDS: XALATAN OPHTHALMIC SOLUTION 1 DROP LEFT EYE (21:10)
[2023-10-05 21:51] LABS: Glucose - Point of Care 159 mg/dl (70-99)
[2023-10-05 23:50] VITALS: BP 100/56
[2023-10-06] VITALS (7 sets, daily range): BP systolic 99–130; BP diastolic 50–95; PULSE 67; O2SAT 96; BMI 23.5
[2023-10-06] MEDS: MORPHINE SULFATE 1 MG IV ×3 (03:01→22:55)
[2023-10-06 06:26] LABS: % Basophils 0.5 % (0-2); % Eosinophils 1.9 % (0-6); % Immature Granulocytes 0.7 % (0-0.5); % Lymphocytes 11.5 % (20.5-51.1); % Monocytes 11.5 % (1.7-9.3); % Neutrophils 73.9 % (42.2-75.2); Absolute Eosinophils 0.1 10^3/uL (0-0.7); Absolute Immature Granulocytes 0.1 10^3/uL (0-0.05); Absolute Lymphocytes 0.9 10^3/uL (1.2-3.4); Absolute Monocytes 0.9 10^3/uL (0.1-0.6); Absolute Neutrophils 5.5 10^3/uL (1.4-6.5); Hemoglobin 11.4 g/dL (13.0-18.0); Mean Corp Hgb Conc. 34.5 g/dL (33.0-37.0); Mean Corpuscular Hgb 31.1 pg (27.0-31.0); Mean Corpuscular Volume 89.9 fL (80.0-94.0); Mean Platelet Volume 10.5 fL (7.4-10.4); Nucleated Red Blood Cells % 0 % (-); Platelet Count 170 10^3/uL (130-400); Red Blood Cell Count 3.67 10^6/uL (4.70-6.10); Red Cell Dist. Width 14.4 % (11.5-14.5); White Blood Cell Count 7.4 10^3/uL (4.8-10.8)
[2023-10-06 06:50] LABS: Blood Urea Nitrogen 70 mg/dl (9-20); Calcium 9.6 mg/dl (8.4-10.2); Carbon Dioxide 29 mmol/L (22-30); Chloride 96 mmol/L (98-107); Estimated Creatinine Clearance 36 ml/min; Glucose 148 mg/dl (70-99); Magnesium 1.8 mg/dl (1.6-2.3); Potassium 4.4 mmol/L (3.5-5.1); Sodium 137 mmol/L (135-145); eGFR 41.44
[2023-10-06 08:00] LABS: Glucose - Point of Care 156 mg/dl (70-99)
[2023-10-06] MEDS: NOVOLOG FLEXPEN-LOW RESISTANCE 1 UNITS SC ×3 (08:43→16:59)
[2023-10-06] MEDS: LASIX 60 MG PO (08:43)
[2023-10-06] MEDS: PROTONIX 20 MG PO (08:43)
[2023-10-06] MEDS: B COMPLEX w/VITAMIN C 1 CAPLET PO (08:43)
[2023-10-06] MEDS: OMNICEF 300 MG PO ×2 (08:43→20:51)
[2023-10-06] MEDS: TOPROL XL 25 MG PO (08:43)
[2023-10-06] MEDS: TRICOR 48 MG PO (08:43)
[2023-10-06] MEDS: ZOLOFT 50 MG PO (08:44)
[2023-10-06] MEDS: ELIQUIS 2.5 MG PO ×2 (08:44→20:51)
[2023-10-06] MEDS: LIDOCAINE 4% PATCH 1 PATCH TOPICAL (08:44)
[2023-10-06] MEDS: PROSCAR 5 MG PO (08:44)
[2023-10-06] MEDS: METAMUCIL, KONSYL 1 PACKET PO (08:44)
--- NOTE | 2023-10-06 10:30 | W.PN.URO.CBU ---
Today's Communication / Plan
-
to be discharged with Donovan
to f/u with Dr Montalvo within next 2 weeks
Assessment / Plan
-
Prostatomegaly with Urinary Retention, bilateral hydronephrosis and elevated serum creatinine c/w obstructive uropathy
Klebsiella Urosepsis
Improving Renal Function with relief of MOY by Donovan
Diagnosis
-
Date of Service: October 06, 2023
-
Patient Diagnosis:
Prostatomegaly with Urinary Retention, bilateral hydronephrosis and elevated serum creatinine c/w obstructive uropathy
Klebsiella Urosepsis
Subjective
-
comfortable with Donovan
Objective
-
Vital Signs
Temp Pulse Resp BP Pulse Ox
98.1 F 73 18 114/70 96
10/06/23 07:24 10/06/23 08:43 10/06/23 07:24 10/06/23 08:43 10/06/23 07:24
Intake and Output
10/05/23 10/06/23 10/07/23
06:59 06:59 06:59
Intake Total 970 / 970
Output Total 1999 / 1999 2825 / 2825
Balance -1030 / -1030 -2825 / -2825
Intake:
Oral fluids 720 / 720
IV fluids (Total) 250 / 250
Output:
Urine, Donovan 1400 / 1400 2825 / 2825
Urine, Voided 600 / 600
Laboratory Results
10/06/23 04:37
10/06/23 04:37
Physical Exam
-
General - well developed, well nourished, no acute distress
Chest - clear bilaterally
Abdomen - soft, non-tender, positive bowel sounds, no CVAT, no incisional pain or distention
Genitalia - normal
Rectal - normal
Skin - warm & dry with no rash
Neuro - AOx3, no motor deficits
Extremities - no clubbing, no cyanosis, no edema
Incision - clean, dry
Dressing - clean, dry, intact
[2023-10-06 12:05] LABS: Glucose - Point of Care 150 mg/dl (70-99)
[2023-10-06] MEDS: MAGNESIUM OXIDE 250 MG PO (12:26)
[2023-10-06] MEDS: TYLENOL 650 MG PO ×2 (12:26→21:14)
--- NOTE | 2023-10-06 13:11 | W.PN.HOSP.TC ---
Today's Communication/Plan
-
Discharge
Assessment / Plan
Assessment / Plan
#Klebsiella pneumonia bacteremia
#Sepsis secondary to UTI and urine retention
#BPH with acute urine retention s/p donovan -- Failed TOV
-Was initially treated with IV antibiotics including cefepime and vancomycin
-Final blood culture results show Klebsiella pneumonia only resistant to ampicillin
-Remains hemodynamically stable without vasopressors, BP soft today, Lasix held
-Discharged on oral cefdinir course to complete 7 days antibiotics
-Resumed on home Lasix dose with net negative balance overnight
-Continue with tamsulosin and finasteride, follow-up with urology outpatient
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
#Permanent AF on Eliquis
#Moderate MR
#Moderate TR
-Complex cardiac history with systolic dysfunction and valve dysfunction
-Echocardiogram showed LVEF 44% with moderate TR and MR, pulmonary hypertension seen
-GDMT currently includes beta-dennis, limited by renal dysfunction and hypotension
-Was initially on IV diuretic however blood pressure softened, and it was discontinued
-As of this morning he seems more hypovolemic, giving 500 mL bolus
-Resuming Lasix today as above
#Left Hip/Lower Back Pain, Acute on Chronic
#Sciatica
-Was started on low-dose gabapentin and lidocaine patch, working with PT/OT
-No redness, swelling, or exquisite tenderness on exam today
-PT recommending SNF at discharge, would benefit
#CKD III
-Secondary to diabetic nephropathy, baseline kidney function with creatinine near 2.0
-No known association of AOCD, chronic acidemia, bone mineral disease
-Patient does seem slightly dry today, creatinine slowly uptrending
-Holding Lasix as above, light IV fluids and trend BMP
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
-Outpatient pulm follow-up at discharge
-Remains on home bronchodilators
#DM type 2 with nephropathy
#Dyslipidemia
-No recent A1c, Home medications include Januvia, atorvastatin
-Currently on insulin sliding scale with Accu-Cheks and carb controlled
-Blood sugar currently well-controlled
#Hypertension
-Home medication includes beta-dennis, loop diuretic; no first-line agents
-Blood pressure currently on the soft side, loop diuretic held as above
#Sacral wound - POA
-Wound care
DVT prophylaxis: Elqiuis
Diet: Carb controlled
CODE STATUS: Full code
Anticipated Discharge: Today
Subjective/Interval History
-
Date of Service: October 06, 2023
Seen and examined at bedside today. No acute events reported overnight.
He states his head 'feels heavy' but denies headache, states this happens sometimes. Denies chest pain, shortness of breath, fevers or chills, nausea, vomiting, diarrhea, urinary issues, abnormal bleeding or bruising, paresthesias or weakness.
Remains hemodynamically stable, afebrile, on room air comfortably.
Objective Data
-
Labs:
Laboratory Results
10/06/23
04:37
WBC 7.4
Hgb 11.4 L
Hct 33.0 L
Plt Count 170
Sodium 137
Potassium 4.4
Chloride 96 L
Carbon Dioxide 29
BUN 70 H
Creatinine 1.6 H
Glucose 148 H
Calcium 9.6
Vital Signs:
Vital Signs
Temp Pulse Resp BP Pulse Ox
98.5 F 82 22 112/95 97
10/06/23 11:29 10/06/23 11:29 10/06/23 11:29 10/06/23 11:29 10/06/23 11:29
I&O
10/05/23 10/06/23 10/07/23
06:59 06:59 06:59
Intake Total 970 / 970
Output Total 1999 / 2825
Balance -1030 / -1030 -282 / -2825
Review of Systems
-
History Source: Patient
All other systems: Reviewed and negative
Physical Exam
-
General: No Apparent Distress, Comfortable and Other (Frail, elderly male)
HEENT: Normocephalic, Atraumatic and Moist Mucous Membranes
Respiratory: Clear to Auscultation and Non Labored Respirations; Negative Wheezes, Rales or Rhonchi
Cardiac: Regular Rhythm, S1/S2 and Murmur; Negative Rub, JVD or Gallop
GI: Soft, Nontender, Nondistended and Normal Bowel Sounds
Genito-urinary: No Costovertebral Tender
Musculoskeletal: No Clubbing, No Cyanosis and No Edema
Skin: Warm, Dry and Normal Turgor; Negative Rash
Neuro: AO x 3, Nonfocal/Grossly Intact and Central Nerve's Intact; Negative Tremors
Data Reviewed
-
Labs: Labs Reviewed by me and Discussed with Patient
--- NOTE | 2023-10-06 14:10 | W.PN.CD ---
Today's Communication / Plan
-
transition to PO lasix 60
Impression / Plan
-
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 currently examines euvolemic
-Echo 08/19/2022: LVEF 35%. Severe inferolateral, inferoseptal and inferior hypokinesis.
-Moderate MR�eccentric massively dilated left and right atria.
-GDMT as tolerated, this is limited by his renal function and hypotension.
-On Toprol 25 mg once a day.
-Currently Holding Lasix today due to hypotension.
-Daily weight, BMP, & I/Os.
-HF education.
- examines euvolemic, Cr continues to fall, would continue PO lasix 60 (home dose) for goal net even
Non-ischemic myocardial injury - acute.
-secondary to BRIE on chronic CKD, sepsis and acute HFrEF.
-denies any chest pain.
Permanent Atrial Fibrillation - rate controlled on Toprol; rate control improved
-mild acceleration of rates, likely physiologic response to sepsis and hypotension, monitor and allow for mildly accelerated rateds
-Oral Anticoagulation: Eliquis 2.5mg PO BID (age 86, creatinine > 1.5).
-[id number] score at least 7 (Heart failure, HTN, age 75 or more, Diabetes Mellitus, prior CVA).
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
-Follow with IV diuresis.
-managed by Dr. Mayorga.
HTN - hypotension in the setting of fever and sepsis.
-improved BP
-Continue Toprol.
UTI/urinary retention - managed by Urology.
-indwelling Donovan.
-fever managed by hospitalist.
NIDDM - per primary.
CVA, while warfarin was on hold for epidural (09/2020)
HLD, on Lipitor & Tricor
Mild to moderate, eccentric mitral regurgitation
BRIONNA, reports CPAP intolerant
Subjective:
feeling well, no fevers/chills
sob improved
TTE: 10/02/23
CONCLUSIONS
-Left ventricular ejection fraction is 35-40%, by visual assessment. Severe
basal to mid inferolateral, inferoseptal, and inferior hypokinesis.
-Enlarged right ventricular size. Normal right ventricular systolic function.
-Massively dilated left atrium. -Massively dilated right atrium.
-Mild to moderate, eccentric mitral regurgitation.
-Aortic sclerosis without stenosis.
-Mild to moderate tricuspid regurgitation. Estimated pulmonary artery pressure
of 25-30 mmHg.
No significant change since the prior study of 10/06/2020.
Physical Exam
Vital Signs/Labs
Vital Signs
Temp Pulse Resp BP Pulse Ox
36.9 C 82 22 112/95 97
10/06/23 11:29 10/06/23 11:29 10/06/23 11:29 10/06/23 11:29 10/06/23 11:29
10/05/23 10/06/23 10/07/23
06:59 06:59 06:59
Actual Weight 80.91 kg 78.471 kg
10/06/23 04:37
10/06/23 04:37
APTT Cancelled 10/01/23 13:15
Magnesium 1.8 mg/dl (1.6-2.3) 10/06/23 04:37
Triglycerides 76 mg/dl (10-149) 10/01/23 07:07
LDL Cholesterol, Calc 91 mg/dl 10/01/23 07:07
VLDL Cholesterol, Calc 15 mg/dl (0-30) 10/01/23 07:07
HDL Cholesterol 45 mg/dl 10/01/23 07:07
09/30/23
04:52
Uug-W-Kdlipaofdcj Pept 4200
Physical Exam
Constitutional: No acute distress and Comfortable
Cardiovascular: Rhythm & rate is regular, Pedal edema is absent and JVD pressure is normal (no JVD seen sitting upright)
Respiratory: Respiratory effort normal and Lungs clear to auscul.
Neuro/Psych: Alert
Data Reviewed
-
Date of Service: October 06, 2023
Medical Decision Making: Reviewed Test Results
Labs: Labs Reviewed by me
--- NOTE | 2023-10-06 16:47 | CM ---
PT OT recommended SNF.
Pt living in community with [facility] as their SNF.
[facility] rep [phone] she said bed available Monday.
Spoke with Maylin and daughter they want him to go To [facility] only.
Referral in care port.
IMM reviewed with Maylin IMM signed on chart.
Plan to [facility]
[2023-10-06 16:53] LABS: Glucose - Point of Care 150 mg/dl (70-99)
[2023-10-06] MEDS: LIPITOR 40 MG PO (17:00)
[2023-10-06] MEDS: FLOMAX 0.4 MG PO (17:00)
[2023-10-06] MEDS: LIPITOR 10 MG PO (17:00)
[2023-10-06] MEDS: MELATONIN 3 MG PO (20:52)
[2023-10-06] MEDS: NEURONTIN 100 MG PO (21:02)
[2023-10-06] MEDS: XALATAN OPHTHALMIC SOLUTION 1 DROP LEFT EYE (21:02)
[2023-10-06 21:39] LABS: Glucose - Point of Care 160 mg/dl (70-99)
[2023-10-07 03:29] VITALS: BP 144/89
[2023-10-07] MEDS: TYLENOL 650 MG PO ×2 (03:30→20:58)
[2023-10-07] MEDS: MORPHINE SULFATE 1 MG IV ×2 (04:37→21:56)
[2023-10-07 06:00] VITALS: BMI 24.2
[2023-10-07 07:00] VITALS: BP 113/65
[2023-10-07 07:10] LABS: Glucose - Point of Care 157 mg/dl (70-99)
[2023-10-07] MEDS: NOVOLOG FLEXPEN-LOW RESISTANCE 1 UNITS SC ×2 (08:35→17:45)
[2023-10-07] MEDS: TOPROL XL 25 MG PO (08:36)
[2023-10-07] MEDS: ZOLOFT 50 MG PO (08:36)
[2023-10-07] MEDS: B COMPLEX w/VITAMIN C 1 CAPLET PO (08:36)
[2023-10-07] MEDS: LASIX 60 MG PO (08:36)
[2023-10-07] MEDS: PROSCAR 5 MG PO (08:36)
[2023-10-07] MEDS: ELIQUIS 2.5 MG PO ×2 (08:36→20:58)
[2023-10-07] MEDS: PROTONIX 20 MG PO (08:37)
[2023-10-07] MEDS: LIDOCAINE 4% PATCH 1 PATCH TOPICAL (08:37)
[2023-10-07] MEDS: TRICOR 48 MG PO (08:37)
[2023-10-07] MEDS: OMNICEF 300 MG PO ×2 (08:37→20:59)
[2023-10-07] MEDS: METAMUCIL, KONSYL 1 PACKET PO (08:37)
[2023-10-07] MEDS: FLUSH (NSS) 1 FLUSH IV ×2 (08:39→08:42)
[2023-10-07 11:07] LABS: Glucose - Point of Care 201 mg/dl (70-99)
[2023-10-07 11:19] VITALS: BP 108/63
--- NOTE | 2023-10-07 11:47 | CM ---
Addendum entered by Katt Castro 10/07/23 11:48:
CM mistaken about primary insurance; [facility] has Traditional Medicare coverage, so no authorization is required.
Original Note:
CM continues to follow for transfer to [facility]; bed reportedly available on Monday; [facility]
--- NOTE | 2023-10-07 12:20 | W.PN.HOSP.TC ---
Today's Communication/Plan
-
no bed at SNF until Monday
Assessment / Plan
Assessment / Plan
pt is an 87 year old male
Klebsiella pneumonia bacteremia and sepsis secondary to UTI and urine retention--had donovan, failed TOV, now donovan to stay at d/c--on oral cefdinir, to complete 7 day course--day 3
BPH with acute urine retention s/p donovan -- Failed TOV--Continue with tamsulosin and finasteride, follow-up with urology outpatient--keep donovan at d/c
Acute on chronic HFmrEF exacerbation/Permanent AF on Eliquis/Moderate MR/Moderate TR---GDMT currently includes beta-dennis, limited by renal dysfunction and hypotension--resume lasix-Complex cardiac history with systolic dysfunction and valve
dysfunction-Echocardiogram showed LVEF 44% with moderate TR and MR, pulmonary hypertension seen
Left Hip/Lower Back Pain, Acute on Chronic/Sciatica-Was started on low-dose gabapentin and lidocaine patch, working with PT/OT--PT recommending SNF at discharge, would benefit
CKD III--Secondary to diabetic nephropathy, baseline kidney function with creatinine near 2.0-No known association of AOCD, chronic acidemia, bone mineral disease-Patient does seem slightly dry today, creatinine slowly uptrending--Holding Lasix as
above, light IV fluids and trend BMP
Hx of asbestos exposure with radiographic COPD/Lung fibrosis -- No IPF or NSIP history-Outpatient pulm follow-up at discharge-Remains on home bronchodilators
DM type 2 with nephropathy/Dyslipidemia-No recent A1c, Home medications include Januvia, atorvastatin-Currently on insulin sliding scale with Accu-Cheks and carb controlled-Blood sugar currently well-controlled
Essential Hypertension-Home medication includes beta-dennis, loop diuretic-Blood pressure currently on the soft side, loop diuretic held as above
Sacral wound - POA-Wound care
DVT prophylaxis: Elqiuis
CODE STATUS: Full code
Anticipated Discharge: > 48 hours
Subjective/Interval History
-
Date of Service: October 07, 2023
pt without c/o
Objective Data
-
Vital Signs:
max temp for 24 hours
10/07/23
07:00
Temp 98.2 F
Vital Signs
Temp Pulse Resp BP Pulse Ox
98.4 F 60 16 108/63 97
10/07/23 11:19 10/07/23 11:19 10/07/23 11:19 10/07/23 11:19 10/07/23 11:19
I&O
10/06/23 10/07/23 10/08/23
06:59 06:59 06:59
Intake Total 1260 / 1260
Output Total 2825 / 2825 2700 / 2700
Balance -2825 / -2825 -1440 / -1440
Review of Systems
-
All other systems: Reviewed and negative
Physical Exam
-
General: Well Developed, Well Nourished and No Apparent Distress
HEENT: Normocephalic and Atraumatic
Respiratory: Clear to Auscultation; Negative Wheezes or Rhonchi
Cardiac: Regular Rhythm and S1/S2; Negative Murmur
GI: Soft, Nontender, Nondistended and Normal Bowel Sounds
Genito-urinary: Clear Urine and Donovan
Musculoskeletal: No Clubbing, No Cyanosis and No Edema
Neuro: Awake
[2023-10-07] MEDS: NOVOLOG FLEXPEN-LOW RESISTANCE 2 UNITS SC (12:35)
[2023-10-07] MEDS: MAGNESIUM OXIDE 250 MG PO (12:35)
--- NOTE | 2023-10-07 13:10 | W.PN.CD ---
Addendum entered and electronically signed by Maciel Lopez MD 10/07/23 14:27:
I saw and examined the patient.
FP PGY2 anahi note was reviewed and I agree with the note.
Respiratory status remained stable. Continues on Lasix 60 mg daily. Renal function has been improving.
A-fib is stable and rate controlled. Continue Eliquis at 2.5 mg twice daily since age is greater than 80 and creatinine remains greater than 1.5.
Call if additional assistance required.
Patient will be following up in our office after discharge.
Original Note:
Today's Communication / Plan
-
.
Impression / Plan
-
Acute on chronic HFmrEF (EF 44%) -
-Echo 10/02/2023 with LVEF 44%
-GDMT as tolerated
-On Toprol 25 mg once a day.
-Daily weight, BMP, & I/Os.
-HF education.
-continue PO lasix 60 (home dose)
Permanent Atrial Fibrillation - rate controlled on Toprol
-Oral Anticoagulation: Eliquis 2.5mg PO BID (age 86, creatinine > 1.5).
-[id number]-JFRo score at least 7 (Heart failure, HTN, age 75 or more, Diabetes Mellitus, prior CVA).
Physical Exam
Vital Signs/Labs
Vital Signs
Temp Pulse Resp BP Pulse Ox
98.4 F 60 16 108/63 97
10/07/23 11:19 10/07/23 11:19 10/07/23 11:19 10/07/23 11:19 10/07/23 11:19
10/06/23 10/07/23 10/08/23
06:59 06:59 06:59
Actual Weight 78.471 kg 80.824 kg
10/06/23 04:37
10/06/23 04:37
APTT Cancelled 10/01/23 13:15
Magnesium 1.8 mg/dl (1.6-2.3) 10/06/23 04:37
Triglycerides 76 mg/dl (10-149) 10/01/23 07:07
LDL Cholesterol, Calc 91 mg/dl 10/01/23 07:07
VLDL Cholesterol, Calc 15 mg/dl (0-30) 10/01/23 07:07
HDL Cholesterol 45 mg/dl 10/01/23 07:07
09/30/23
04:52
Hga-R-Xgwoalsgbmd Pept 4200
Physical Exam
Constitutional: No acute distress
Cardiovascular: Rhythm & rate is regular, Pedal edema is absent and S1S2 is normal
Respiratory: Lungs clear to auscul.
Data Reviewed
-
Date of Service: October 07, 2023
[2023-10-07 15:44] VITALS: BP 94/55
[2023-10-07 16:18] LABS: Glucose - Point of Care 151 mg/dl (70-99)
[2023-10-07] MEDS: FLOMAX 0.4 MG PO (17:45)
[2023-10-07] MEDS: LIPITOR 40 MG PO (17:45)
[2023-10-07] MEDS: LIPITOR 10 MG PO (17:45)
[2023-10-07 19:54] VITALS: BP 107/65
[2023-10-07] MEDS: MELATONIN 3 MG PO (20:58)
[2023-10-07] MEDS: XALATAN OPHTHALMIC SOLUTION 1 DROP LEFT EYE (20:59)
[2023-10-07] MEDS: NEURONTIN 100 MG PO (20:59)
[2023-10-07 22:05] LABS: Glucose - Point of Care 140 mg/dl (70-99)
[2023-10-07 23:39] VITALS: BP 114/66
[2023-10-08 03:37] VITALS: BP 111/68
[2023-10-08 06:00] VITALS: BMI 22.3
[2023-10-08 07:30] VITALS: BP 114/67
[2023-10-08 07:34] LABS: Glucose - Point of Care 156 mg/dl (70-99)
[2023-10-08 08:33] LABS: Hematocrit 34.1 % (39.0-52.0); Hemoglobin 11.7 g/dL (13.0-18.0); Mean Corp Hgb Conc. 34.3 g/dL (33.0-37.0); Mean Corpuscular Hgb 30.7 pg (27.0-31.0); Mean Corpuscular Volume 89.5 fL (80.0-94.0); Mean Platelet Volume 10.4 fL (7.4-10.4); Platelet Count 230 10^3/uL (130-400); Red Blood Cell Count 3.81 10^6/uL (4.70-6.10); Red Cell Dist. Width 14.1 % (11.5-14.5); White Blood Cell Count 8.4 10^3/uL (4.8-10.8)
[2023-10-08 08:51] LABS: Blood Urea Nitrogen 65 mg/dl (9-20); Calcium 9.5 mg/dl (8.4-10.2); Carbon Dioxide 32 mmol/L (22-30); Chloride 93 mmol/L (98-107); Estimated Creatinine Clearance 34 ml/min; Glucose 145 mg/dl (70-99); Magnesium 1.8 mg/dl (1.6-2.3); Potassium 4.2 mmol/L (3.5-5.1); Sodium 138 mmol/L (135-145); eGFR 41.44
[2023-10-08] MEDS: NOVOLOG FLEXPEN-LOW RESISTANCE 1 UNITS SC ×3 (09:20→17:35)
[2023-10-08] MEDS: ELIQUIS 2.5 MG PO ×2 (09:21→20:04)
[2023-10-08] MEDS: LASIX 60 MG PO (09:21)
[2023-10-08] MEDS: B COMPLEX w/VITAMIN C 1 CAPLET PO (09:21)
[2023-10-08] MEDS: OMNICEF 300 MG PO ×2 (09:22→20:03)
[2023-10-08] MEDS: PROTONIX 20 MG PO (09:22)
[2023-10-08] MEDS: METAMUCIL, KONSYL 1 PACKET PO (09:25)
[2023-10-08] MEDS: LIDOCAINE 4% PATCH 1 PATCH TOPICAL (09:25)
[2023-10-08] MEDS: TRICOR 48 MG PO (09:25)
[2023-10-08] MEDS: ZOLOFT 50 MG PO (09:25)
[2023-10-08] MEDS: PROSCAR 5 MG PO (09:25)
[2023-10-08] MEDS: TOPROL XL 25 MG PO (09:25)
--- NOTE | 2023-10-08 09:51 | W.PN.HOSP.TC ---
Today's Communication/Plan
-
d/c to SNF on Monday with donovan
Assessment / Plan
Assessment / Plan
pt is an 87 year old male
Klebsiella pneumonia bacteremia and sepsis secondary to UTI and urine retention--had donovan, failed TOV, now donovan to stay at d/c--on oral cefdinir, to complete 7 day course--day 4
BPH with acute urine retention s/p donovan -- Failed TOV--Continue with tamsulosin and finasteride, follow-up with urology outpatient--keep donovan at d/c
Acute on chronic HFmrEF exacerbation/Permanent AF on Eliquis/Moderate MR/Moderate TR---GDMT currently includes beta-dennis, limited by renal dysfunction and hypotension (both improved)--resume lasix--Complex cardiac history with systolic
dysfunction and valve dysfunction-Echocardiogram showed LVEF 44% with moderate TR and MR, pulmonary hypertension seen
Left Hip/Lower Back Pain, Acute on Chronic/Sciatica-Was started on low-dose gabapentin and lidocaine patch, working with PT/OT--PT recommending SNF at discharge
CKD III--Secondary to diabetic nephropathy, baseline kidney function with creatinine near 2.0?--No known association of AOCD, chronic acidemia, bone mineral disease---Holding Lasix as above, light IV fluids and trend BMP--creat peaked at 2.3--down
to 1.6
Hx of asbestos exposure with radiographic COPD/Lung fibrosis -- No IPF or NSIP history-Outpatient pulm follow-up at discharge-Remains on home bronchodilators
DM type 2 with nephropathy/Dyslipidemia-No recent A1c, Home medications include Januvia, atorvastatin-Currently on insulin sliding scale with Accu-Cheks and carb controlled-Blood sugar currently well-controlled
Essential Hypertension-Home medication includes beta-dennis, loop diuretic-Blood pressure currently on the soft side, loop diuretic held as above
Sacral wound - POA-Wound care
DVT prophylaxis: Elqiuis
CODE STATUS: Full code
Anticipated Discharge: Within 24 hours
Subjective/Interval History
-
Date of Service: October 08, 2023
pt waiting for SNF--c/o hip pain
Objective Data
-
Labs:
Laboratory Results
10/08/23
07:24
WBC 8.4
Hgb 11.7 L
Hct 34.1 L
Plt Count 230 D
Sodium 138
Potassium 4.2
Chloride 93 L
Carbon Dioxide 32 H
BUN 65 H
Creatinine 1.6 H
Glucose 145 H
Calcium 9.5
Vital Signs:
max temp for 24 hours
10/07/23
19:54
Temp 98.5 F
Vital Signs
Temp Pulse Resp BP Pulse Ox
97.6 F 64 18 114/67 94
10/08/23 07:30 10/08/23 07:30 10/08/23 07:30 10/08/23 07:30 10/08/23 07:30
I&O
10/07/23 10/08/23 10/09/23
06:59 06:59 06:59
Intake Total 1260 / 1260 270 / 270
Output Total 2700 / 2700 1900 / 1900
Balance -1440 / -1440 -1630 / -1630
Review of Systems
-
All other systems: Reviewed and negative
Physical Exam
-
General: Well Developed, Well Nourished and No Apparent Distress
HEENT: Normocephalic and Atraumatic
Respiratory: Clear to Auscultation; Negative Wheezes or Rhonchi
Cardiac: Regular Rhythm and S1/S2; Negative Murmur
GI: Soft, Nontender, Nondistended and Normal Bowel Sounds
Genito-urinary: Clear Urine and Donovan
Musculoskeletal: No Clubbing, No Cyanosis and No Edema
Neuro: Awake and Alert
[2023-10-08 11:05] VITALS: BP 104/60
--- NOTE | 2023-10-08 11:30 | CM ---
CM continues to follow for transfer to [facility] on Monday. Transportation will need to be arranged once D/C ordered.
[2023-10-08 11:54] LABS: Glucose - Point of Care 191 mg/dl (70-99)
[2023-10-08] MEDS: MAGNESIUM OXIDE 250 MG PO (12:23)
[2023-10-08] MEDS: ULTRAM 12.5 MG PO ×2 (14:39→21:08)
[2023-10-08 15:34] VITALS: BP 100/62
[2023-10-08 16:38] LABS: Glucose - Point of Care 159 mg/dl (70-99)
--- NOTE | 2023-10-08 17:11 | CM ---
Addendum entered by Katt Castro 10/08/23 18:00:
[facility] report: [phone]
[facility]
Original Note:
CM completed transport form and PMNC for ambulance transport to [facility] in AM. Requesting transport for late morning/early afternoon.
Pt's and daughter aware of transfer plans. They have requested a 2nd copy of the discharge instructions to be sent with [facility] at the time of transfer.
Plan: Discharge to [facility] via ambulance due to pain. CM requested (per family request) that a second copy of the discharge instructions be sent with him so family has their own copy. Community [facility] Coordinator aware of request.
Ambulance PMNC and transport request completed for discharge via ambulance to [facility] tomorrow late morning/early afternoon.
[2023-10-08] MEDS: FLOMAX 0.4 MG PO (17:35)
[2023-10-08] MEDS: LIPITOR 40 MG PO (17:35)
[2023-10-08] MEDS: LIPITOR 10 MG PO (17:36)
[2023-10-08] MEDS: MELATONIN 3 MG PO (20:03)
[2023-10-08] MEDS: XALATAN OPHTHALMIC SOLUTION 1 DROP LEFT EYE (20:07)
[2023-10-08] MEDS: NEURONTIN 100 MG PO (20:07)
[2023-10-08 21:35] LABS: Glucose - Point of Care 149 mg/dl (70-99)
[2023-10-08 23:44] VITALS: BP 117/62
[2023-10-09] MEDS: ULTRAM 12.5 MG PO (04:41)
[2023-10-09 06:00] VITALS: BMI 24.1
[2023-10-09] MEDS: MORPHINE SULFATE 1 MG IV (06:26)
[2023-10-09 06:31] LABS: Hematocrit 34.3 % (39.0-52.0); Hemoglobin 11.8 g/dL (13.0-18.0); Mean Corp Hgb Conc. 34.4 g/dL (33.0-37.0); Mean Corpuscular Hgb 30.1 pg (27.0-31.0); Mean Corpuscular Volume 87.5 fL (80.0-94.0); Mean Platelet Volume 10.3 fL (7.4-10.4); Platelet Count 273 10^3/uL (130-400); Red Blood Cell Count 3.92 10^6/uL (4.70-6.10); Red Cell Dist. Width 13.8 % (11.5-14.5); White Blood Cell Count 8.7 10^3/uL (4.8-10.8)
[2023-10-09 07:00] VITALS: BP 111/71
[2023-10-09 07:00] LABS: Blood Urea Nitrogen 68 mg/dl (9-20); Calcium 9.7 mg/dl (8.4-10.2); Carbon Dioxide 33 mmol/L (22-30); Estimated Creatinine Clearance 34 ml/min; Glucose 156 mg/dl (70-99); Magnesium 1.8 mg/dl (1.6-2.3); Potassium 4.6 mmol/L (3.5-5.1); Sodium 137 mmol/L (135-145); eGFR 38.53
[2023-10-09 07:07] LABS: Chloride 92 mmol/L (98-107)
--- NOTE | 2023-10-09 08:46 | W.PN.HOSP.TC ---
Today's Communication/Plan
-
Discharge
Assessment / Plan
Assessment / Plan
Gen-AAOx3, NAD
HEENT-NC, AT, anicteric, clear oral mm
Neck-supple
CV-reg, no M, +S1/S2
Lungs-clear B/L
Abd-soft, NT, ND
Ext-no edema
Musculoskeletal-no cyanosis, clubbing
Skin-warm and dry
Neuro-grossly non-focal
Psych-calm, cooperative
Klebsiella pneumonia bacteremia and sepsis secondary to UTI and urinary retention --had donoavn, failed TOV, now donovan to stay at d/c--on oral cefdinir, to complete 7 day course--day 5
BPH with acute urine retention s/p donovan -- Failed TOV--Continue with tamsulosin and finasteride, follow-up with urology outpatient--keep donovan at d/c
Acute on chronic HFmrEF exacerbation/Permanent AF on Eliquis/Moderate MR/Moderate TR---GDMT currently includes beta-dennis, limited by renal dysfunction and hypotension (both improved)--resume lasix--Complex cardiac history with systolic
dysfunction and valve dysfunction-Echocardiogram showed LVEF 44% with moderate TR and MR, pulmonary hypertension seen
Left Hip/Lower Back Pain, Acute on Chronic/Sciatica-Was started on low-dose gabapentin and lidocaine patch, working with PT/OT--PT recommending SNF at discharge
CKD 3b --Secondary to diabetic nephropathy, baseline kidney function with creatinine near 2.0?--No known association of AOCD, chronic acidemia, bone mineral disease---Holding Lasix as above, light IV fluids and trend BMP--creat peaked at 2.3--down
to 1.6
Hx of asbestos exposure with radiographic COPD/Lung fibrosis -- No IPF or NSIP history-Outpatient pulm follow-up at discharge-Remains on home bronchodilators
DM type 2 with nephropathy/Dyslipidemia-No recent A1c, Home medications include Januvia, atorvastatin-Currently on insulin sliding scale with Accu-Cheks and carb controlled-Blood sugar currently well-controlled
Essential Hypertension-Home medication includes beta-dennis, loop diuretic-Blood pressure currently on the soft side, loop diuretic held as above
Sacral wound - POA-Wound care
DVT prophylaxis: Eliquis
CODE STATUS: Full code
Dispo - medically stable for discharge to SNF.
32 minutes spent in discharge process.
Anticipated Discharge: Today
Subjective/Interval History
-
Date of Service: October 09, 2023
Patient seen and examined. No new complaints.
Objective Data
-
Labs:
Laboratory Results
10/09/23
05:30
WBC 8.7
Hgb 11.8 L
Hct 34.3 L
Plt Count 273
Sodium 137
Potassium 4.6
Chloride 92 L
Carbon Dioxide 33 H
BUN 68 H
Creatinine 1.7 H
Glucose 156 H
Calcium 9.7
Vital Signs:
Vital Signs
Temp Pulse Resp BP Pulse Ox
97.8 F 70 18 117/62 95
10/08/23 23:44 10/08/23 23:44 10/08/23 23:44 10/08/23 23:44 10/08/23 23:44
I&O
10/08/23 10/09/23 10/10/23
06:59 06:59 06:59
Intake Total 270 / 270 480 / 480
Output Total 1900 / 1900 2300 / 2300
Balance -1630 / -1630 -1820 / -1820
Review of Systems
-
History Source: Patient
All other systems: Reviewed and negative
--- NOTE | 2023-10-09 08:49 | W.DS.TRANS ---
DC Summary - [employer]
-
Discharge Instructions:
Discharge Diagnosis/Procedures Klebsiella septicemia/urinary tract infection/
retention
Decompensated heart failure
NSVT
Diet No added salt,Restrict fluids to 64 oz
Activity As tolerated
Driving Restrictions No driving for 24 hours
Bathing Restrictions None
Blood Work BMP in 5 days to check renal function
Others Tests None
Other Services PT,OT
Specialty Instructions Weigh Daily
Instructions: *[facility] Heart Failure Instructions
Stand-Alone Forms:
Changes to Home Medications: No
Discharge Medications:
DC Medications w/original date entered in [employer]
atorvastatin 40 mg tablet 40 mg PO QPM take with 10mg 10/05/20
omeprazole 20 mg capsule,delayed release 20 mg PO DAILY Gastrointestinal issue 10/05/20
fenofibrate 54 mg tablet 54 mg PO DAILY High cholesterol 08/04/21
apixaban 2.5 mg tablet (Eliquis) 2.5 mg PO BID #60 tabs 08/06/21
acetaminophen 500 mg tablet (Tylenol Extra Strength) 500 mg PO Q4H PRN Pain 04/24/22
sertraline 50 mg tablet 50 mg PO DAILY Mental Health/Anxiety 04/24/22
sitagliptin phosphate 50 mg tablet (Januvia) 50 mg PO DAILY Diabetes 08/20/22
metoprolol succinate 25 mg tablet,extended release 24 hr (Toprol XL) 25 mg PO DAILY Heart disease/condition #30 tabs 08/21/22
furosemide 40 mg tablet (Lasix) 60 mg PO DAILY Heart Failure 09/30/23
latanoprost 0.005 % eye drops 1 drp LEFT EYE HS Eye Condition 09/30/23
magnesium oxide 250 mg PO DAILY@1300 Electrolyte Repletion 09/30/23
psyllium 1 packet PO DAILY Constipation 09/30/23
silodosin 8 mg capsule 8 mg PO QPM Urinary Issue 09/30/23
vitamin B complex 1 tab PO DAILY Supplement 09/30/23
cefdinir 300 mg capsule 300 mg PO Q12 Urinary issue 3 days #6 caps 10/06/23
finasteride 5 mg tablet 5 mg PO DAILY Urinary issue 1 month #30 tabs 10/06/23
gabapentin 100 mg capsule 100 mg PO HS Neurological Condition 1 month #30 caps 10/06/23
Home Medication Changes
Pending Results: No
[2023-10-09] MEDS: ELIQUIS 2.5 MG PO (10:13)
[2023-10-09] MEDS: OMNICEF 300 MG PO (10:13)
[2023-10-09] MEDS: PROSCAR 5 MG PO (10:13)
[2023-10-09] MEDS: ZOLOFT 50 MG PO (10:13)
[2023-10-09] MEDS: PROTONIX 20 MG PO (10:13)
[2023-10-09] MEDS: LASIX 60 MG PO (10:13)
[2023-10-09] MEDS: B COMPLEX w/VITAMIN C 1 CAPLET PO (10:13)
[2023-10-09] MEDS: LIDOCAINE 4% PATCH 1 PATCH TOPICAL (10:14)
[2023-10-09] MEDS: TRICOR 48 MG PO (10:14)
[2023-10-09] MEDS: METAMUCIL, KONSYL 1 PACKET PO (10:14)
[2023-10-09] MEDS: TOPROL XL 25 MG PO (10:14)
[2023-10-09] MEDS: DESENEX/MITRAZOL/ZEASORB 1 APPLIC TOPICAL (10:15)
[2023-10-09] MEDS: NOVOLOG FLEXPEN-LOW RESISTANCE 1 UNITS SC ×2 (10:16→12:59)
[2023-10-09 10:17] LABS: Glucose - Point of Care 167 mg/dl (70-99)
[2023-10-09 12:11] LABS: Glucose - Point of Care 169 mg/dl (70-99)
[2023-10-09] MEDS: MAGNESIUM OXIDE 250 MG PO (12:59)
[2023-10-09 14:17] VITALS: BP 103/61
--- NOTE | 2023-10-10 10:01 | W.HF.CON ---
Heart Failure
- LV Function
Left ventricular function study result: LV Ejection fraction >40%
Ejection Fraction Percentage: 44
- ARNI
Patient already on ARNI: No
Heart Failure ARNI Not Indicated: LV Ejection Fraction >/= 40%
- ACEI/ARB
Patient already on ACEI/ARB: No
Heart Failure ACEI/ARB Not Indicated: LV Ejection Fraction > 40%
- Beta Archie
Patient already on Evidence Based Beta Archie: Yes
- Mineralocorticord Receptor Antagonist
Patient already on MRA: No
Heart Failure MRA Not Indicated: LV Ejection Fraction > 40%
- SGLT-2 Inhibitor
Patient already on SGLT-2 Inhibitor: No
Heart Failure SGLT-2 Inhibitor Not Indicated: LV Ejection Fraction >40%
- Afib Anticoagulation
Patient already on Anticoagulation for Afib: Yes
- NYHA CHF Classification
NYHA CHF Classification Level: Class III - Symptoms w/ min exertion, interferes w/ nml daily activity
- ACC/AHA Stage
ACC/AHA Stage: Stage C: Symptomatic Heart Failure
== END 2023-10-09 14:51 | DRG 871 ==
LOC: 4 EAST ACU 12:41
PROVIDERS: Emergency Medicine; Internal Medicine; Nurse Practitioner Gerontology; Student in an Organized Health Care Education/Training Program; ADMITTING PHYSICIAN Internal Medicine; ATTENDING PHYSICIAN Hospitalist; CONSULT PHYSICIAN Internal Medicine Cardiovascular Disease; CONSULT PHYSICIAN Internal Medicine Infectious Disease; CONSULT PHYSICIAN Specialist; EMERGENCY PHYSICIAN Emergency Medicine
DX: A41.59 Other Gram-negative sepsis (principal); I50.23 Acute on chronic systolic (congestive) heart failure; I48.21 Permanent atrial fibrillation; N13.6 Pyonephrosis; N13.8 Other obstructive and reflux uropathy; I5A Non-ischemic myocardial injury (non-traumatic); I42.8 Other cardiomyopathies; I47.10 Supraventricular tachycardia, unspecified; N17.9 Acute kidney failure, unspecified; E11.22 Type 2 diabetes mellitus with diabetic chronic kidney disease; J61 Pneumoconiosis due to asbestos and other mineral fibers; I25.10 Atherosclerotic heart disease of native coronary artery without angina pectoris; N18.32 Chronic kidney disease, stage 3b; I08.1 Rheumatic disorders of both mitral and tricuspid valves; Z86.73 Personal history of transient ischemic attack (TIA), and cerebral infarction without residual deficits; G47.33 Obstructive sleep apnea (adult) (pediatric); F41.9 Anxiety disorder, unspecified; N40.1 Benign prostatic hyperplasia with lower urinary tract symptoms; R33.8 Other retention of urine; I10 Essential (primary) hypertension; J44.9 Chronic obstructive pulmonary disease, unspecified; M54.42 Lumbago with sciatica, left side; E78.00 Pure hypercholesterolemia, unspecified; I45.10 Unspecified right bundle-branch block; Z11.52 Encounter for screening for COVID-19; Z79.01 Long term (current) use of anticoagulants; Z79.84 Long term (current) use of oral hypoglycemic drugs; Z79.899 Other long term (current) drug therapy; Z96.653 Presence of artificial knee joint, bilateral
CPT/HCPCS: 71045; 71046; 71250; 72100; 73502; 80048; 80053; 80061; 80202; 81003; 81015; 82962; 83036; 83605; 83735; 83880; 84145; 84443; 84484; 85025; 85027; 85652; 85730; 87040; 87070; 87077; 87086; 87149; 87186; 87205; 87811; 93005; 93306; 94640; 96374; 97163; 97167; 97530; 99285

== ENCOUNTER → 2023-11-16 12:10 | Outpatient (REF) | payer MEDICARE, OTHER, SELFPAY ==
[2023-11-16 20:02] LABS: Blood Urea Nitrogen 35 mg/dl (9-20); Carbon Dioxide 26 mmol/L (22-30); Chloride 102 mmol/L (98-107); Glucose 102 mg/dl (70-99); Potassium 3.8 mmol/L (3.5-5.1); Sodium 143 mmol/L (135-145); eGFR 48.65
== END ==
LOC: CLAB 12:10
PROVIDERS: ATTENDING PHYSICIAN Physician Assistant
DX: I50.42 Chronic combined systolic (congestive) and diastolic (congestive) heart failure (principal)
CPT/HCPCS: 36415; 80048

== ENCOUNTER 2023-12-25 19:10 | Inpatient (IN) | payer MEDICARE, OTHER, SELFPAY ==
[2023-12-25] VITALS (9 sets, daily range): BP systolic 94–134; BP diastolic 48–70; BMI 27.6; BMI 26.8
[2023-12-25 14:41] LABS: % Basophils 0.3 % (0-2); % Immature Granulocytes 0.5 % (0-0.5); % Monocytes 6.9 % (1.7-9.3); % Neutrophils 87.3 % (42.2-75.2); Absolute Immature Granulocytes 0.1 10^3/uL (0-0.05); Absolute Lymphocytes 0.6 10^3/uL (1.2-3.4); Absolute Monocytes 0.8 10^3/uL (0.1-0.6); Absolute Neutrophils 10.4 10^3/uL (1.4-6.5); Hematocrit 34.5 % (39.0-52.0); Hemoglobin 11.3 g/dL (13.0-18.0); Mean Corp Hgb Conc. 32.8 g/dL (33.0-37.0); Mean Corpuscular Hgb 30.5 pg (27.0-31.0); Mean Platelet Volume 10.3 fL (7.4-10.4); Nucleated Red Blood Cells % 0 % (-); Platelet Count 153 10^3/uL (130-400); Red Blood Cell Count 3.71 10^6/uL (4.70-6.10); Red Cell Dist. Width 14.6 % (11.5-14.5); White Blood Cell Count 11.9 10^3/uL (4.8-10.8)
[2023-12-25 14:59] LABS: ALT (SGPT) 17 U/L (0-50); AST (SGOT) 30 U/L (17-59); Albumin 4.1 g/dl (3.5-5.0); Alkaline Phosphatase 39 U/L (38-126); Blood Urea Nitrogen 68 mg/dl (9-20); Calcium 9.2 mg/dl (8.4-10.2); Carbon Dioxide 22 mmol/L (22-30); Chloride 106 mmol/L (98-107); Estimated Creatinine Clearance 20 ml/min; Glucose 135 mg/dl (70-99); Potassium 3.6 mmol/L (3.5-5.1); Sodium 144 mmol/L (135-145); Total Bilirubin 1.3 mg/dl (0.2-1.3); Total Protein 6.8 g/dl (6.3-8.2); eGFR 21.04
--- NOTE | 2023-12-25 15:48 | ED.GENMED ---
History of Present Illness
General
Chief Complaint: Dizziness
Source: patient
Exam Limitations: none
Time Seen by Provider: 12/25/23 15:45
Nursing documentation reviewed up to this point in time: agreed with
History of Present Illness
History of Present Illness:
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 His daughter reports that he had had a Donovan catheter but it was removed a week ago. His daughter reports that since
yesterday, the patient has not been feeling well. The patient states he feels awful. He reports he feels very weak. He has been having difficulty urinating. He denies nausea and vomiting but states decreased appetite and chills.
Past History
Past History
ED Past Medical History: Arrthythmia (Atrial fibrillation), HTN, Hypercholesterolemia, NIDDM and Other (Ventral hernia)
ED Past Surgical History: Orthopedic and Other (Bowel resection)
Social History
Tobacco: Non-smoker
Personal:
Living: with family
Employment: Retired
Family History
Family History: Other
Review of Systems
Review of Systems
Allergies reviewed?: Yes
All Other Systems: ROS reviewed and negative except as documented in HPI and ROS
Constitutional: Reports fatigue and chills
EENT: Reports no symptoms
Respiratory: Reports no symptoms
Cardiac: Reports no symptoms
ABD/GI: Reports anorexia
: Reports difficulty voiding
Musculoskeletal: Reports no symptoms
Skin: Reports no symptoms
Neurological: Reports no symptoms
Endocrine: Reports no symptoms
Hematologic/Lymphatic: Reports no symptoms
Psychiatric: Reports no symptoms
Phy Exam
Physical Exam
Physical Exam:
Physical Exam
General: Patient appears tired but answers all questions appropriately. Patient experiencing rigors
Neck: supple.
Heart: Irregular, no murmur. equal radial pulses.
Lungs: no acute respiratory distress. clear bilaterally
Abdomen: Soft. Suprapubic tenderness and distention
Neuro: alert and oriented. no focal neurological deficits
Skin: no rash
Psychiatric: well kept. interactive and cooperative
Extremities: no edema. no calf tenderness. negative homans. good distal pulses
Course
Orders/Labs/Results
Orders:
Orders
12/25/23 14:27
EKG [Electrocardiogram (*1)] Urgent
Reason for Study: Tachycardia
EKG- Treatment ONCE
12/25/23 14:31
Complete Blood Count/With Diff Urgent
Comprehensive Metabolic Panel Urgent
12/25/23 16:28
Donovan [Donovan Placement- Treatment] ONCE
Reason for insertion: Acute Retention
12/25/23 16:29
Abdomen/Pelvis wo Contrast CT [CT Abd/pelvis Wo Iv Cont] Urgent
Comment:
Reason For Exam: fever, bilateral flank pain
12/25/23 16:30
Urinalysis Reflex To Culture Urgent
Date Specimen was Collected: 12/25/23
Time Specimen was Collected: 14:27
Urine Microscopic Reflex Cult Urgent
Urine Culture Urgent
TING Source: U
Specimen Description:
Date Specimen was Collected: 12/25/23
Time Specimen was Collected: 14:27
0.9% Sodium Chloride 1000 ml [Nss] 1,000 ml IV BOLUS
12/25/23 16:34
Acetaminophen [Tylenol] 1,000 mg PO NOW STA
12/25/23 16:36
Ampicillin/Sulbactam 3 G [Unasyn] 3 gm 0.9% Sodium Chloride 100 ml [Nss] 100 ml IV NOW
12/25/23 17:21
Blood Culture Q30M
TING Source: Blood/Venous
Specimen Description:
Blood Culture Q30M
TING Source: Blood/Venous
Specimen Description:
12/25/23 18:51
Admit/Transfer Patient As Directed
Co-Sign Provider:
Level of Care: Inpatient admission
Assign to:: Telemetry
Physician / Group: Hospitalist
Diagnosis: Urinary retention
Reason for Telemetry: Arrhythmia
Date to Stop Telemetry: 12/28/23
Time to Stop Telemetry: 11:00
Reason for Hospitalization: Urinary retention
Expected length of stay greater than two midnights?: Yes
ELOS- Estimated Length of Stay in days: 4
I certify the patient meets the requirements for IP care: Yes
PRN Pain Medication Management As Directed
May give lesser potent ordered pain med per pt: Yes
preference::
Protocol:: Medication orders for pain may be administered in a
manner that supports deferring to patient preference
when the pt is:
- Requesting an ordered lesser potent pain medication.
Least to most potent pain medications are defined
as: acetaminophen < NSAID < tramadol < opioids
(morphine, oxycodone, hydromorphone).
- Requesting a lesser dose of the same medication IF
ORDERED.
- Requesting a less intrusive route of administration
if both routes are prescribed by the provider (PO <
IV).
12/28/23 11:00
DC Protocol for Telemetry ONCE
Abnormal Lab Results
12/25/23 12/25/23
14:31 16:30
WBC 11.9 H 10^3/uL
(4.8-10.8)
RBC 3.71 L 10^6/uL
(4.70-6.10)
Hgb 11.3 L g/dL
(13.0-18.0)
Hct 34.5 L %
(39.0-52.0)
MCHC 32.8 L g/dL
(33.0-37.0)
RDW 14.6 H %
(11.5-14.5)
Abs Immat Gran (auto) 0.1 H 10^3/uL
(0-0.05)
Absolute Neuts (auto) 10.4 H 10^3/uL
(1.4-6.5)
Absolute Lymphs (auto) 0.6 L 10^3/uL
(1.2-3.4)
Absolute Monos (auto) 0.8 H 10^3/uL
(0.1-0.6)
Neutrophils % 87.3 H %
(42.2-75.2)
Lymphocytes % 5.0 L %
(20.5-51.1)
BUN 68 H mg/dl
(9-20)
Creatinine 2.8 H mg/dL
(0.7-1.3)
Glucose 135 H mg/dl
(70-99)
Ur Occult Blood Reflex 1+ A
(Negative)
Leukocyte Esterase Rfl 2+ A
(Negative)
Urine WBC (Reflex) 50-60 A /HPF
(0-5)
Urine Bacteria (Reflex) Many A
(Negative)
12/25/23 14:31
12/25/23 14:31
Vital Signs
Initial and Last Documented VS:
Initial Vital Signs
Temp Pulse Resp BP Pulse Ox
98.7 F 74 19 94/53 94
12/25/23 14:18 12/25/23 14:18 12/25/23 14:18 12/25/23 14:18 12/25/23 14:18
Last Documented Vital Signs
Temp Pulse Resp BP Pulse Ox
98.7 F 81 21 94/48 93
12/25/23 14:18 12/25/23 19:07 12/25/23 19:07 12/25/23 19:06 12/25/23 19:07
MDM/Problems Addressed
Differential Diagnosis Includes:
Acute urinary retention, urosepsis, UTI
MDM/Problems Addressed:
Patient presents with acute on chronic urinary retention and acute chills
Chronic conditions affecting care:
Enlarged prostate, increasing risk of retention and UTI
Acute Exacerbation and/or Progression of Chronic Illness:
Patient likely has acute exacerbation of chronic urinary retention
*Pulse Oximetry
Patient hypoxic: no
*EKG
Interpreted by ED Provider?: Yes
Interpretation: abnormal
Comparison EKG: changes noted
Rate: normal
Rhythm: a-fib
[place]: left axis deviation
Interval: normal interval
QRS Pattern: normal QRS
Ischemia: non-specific ST changes
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
Rate: normal
Interpretation: abnormal
Rhythm: a-fib
*Critical Care Note
Total Time (30-74mins, 75-104mins- exclusive of procedures): 35 minutes
comment:
35 minutes critical care given the patient occluding reassessing his blood pressure, heart rate, mental status as well as reviewing his blood work and speaking to the hospitalist
Data Reviewed
Review of Other/Old Records Reveals: Discharge Summary (Discharge summary reviewed from the hospitalist from 09/2023 when patient was admitted for Klebsiella sepsis)
Source: patient and family (Daughter who is at the bedside)
Patient Management
Social determinants of health affecting care: Living situation and Strong social support
Discussion with other providers: Hospitalist
Escalation/DeEscalation of care consider admission/obs:
Given patient's transient hypotension, rigors and concerns for urosepsis, decision made to admit the patient for IV fluids and antibiotics
ED Attending Note
-
Portions of this chart may have been created with voice recognition software.� Occasional wrong word or��sound alike� substitutions may have occurred due to the inherent limitations of voice recognition software.
Discharge Plan
Departure
Patient Disposition: Admit
Date of Disposition: 12/25/23
Time of Disposition: 16:53
Admit to: Med/Surg
Presentation/result/management discussed w/ accepting MD/DO: Hospitalist
Patient with high blood pressure during this ER visit?: No
Condition: Fair
Covid-19: Not Applicable
Discharge Problem:
Transient hypotension, Acute on chronic urinary retention, Acute UTI
Interventions
Interventions:
*Risk Screen - Suicide Last Done: 12/25/23 14:18
*General Assessment Last Done: 12/25/23 14:18
*Neglect/Abuse Screening Last Done: 12/25/23 14:18
ED- Fall Risk Assessment Last Done: 12/25/23 14:18
*ED COVID-19 Vaccine History Last Done: 12/25/23 14:18
ED- Neurological Assessment Last Done: 12/25/23 14:24
ED- Cardiac Assessment Last Done: 12/25/23 14:24
ED Swallowing Screen Last Done: 12/25/23 16:40
[2023-12-25 16:44] LABS: Urine Albumin Trace (Neg - Trace); Urine Bilirubin Negative (Negative); Urine Character Very Cloudy (Clear); Urine Color Yellow; Urine Glucose Negative (Negative); Urine Ketone Negative (Negative); Urine Leukocyte 2+ (Negative); Urine Nitrite Negative (Negative); Urine Occult Blood 1+ (Negative); Urine Urobilinogen Negative (Neg - 1+)
[2023-12-25] MEDS: TYLENOL 1000 MG PO (16:49)
[2023-12-25] MEDS: NSS 1000 IV ×2 (16:52→20:47)
[2023-12-25] MEDS: UNASYN IV (16:54)
[2023-12-25 17:01] LABS: Urine Bacteria Many (Negative); Urine Red Blood Cell 0-2 /HPF (0-2); Urine White Cell 50-60 /HPF (0-5)
--- NOTE | 2023-12-25 19:38 | HPS.HSE ---
Addendum entered and electronically signed by Chinyere Rose MD 12/25/23 20:49:
I personally performed a history and physical exam of the patient and discussed management with Dr. Foster. I reviewed the resident's note and agree with the documented findings and plan of care HPI/CC.
GENERAL: chronically ill appearing male in no apparent distress
HEENT: NC/AT -- no O2 requirements--dry mucous membranes--corner of left mouth with droop
HEART: irreg irreg
LUNGS : clear to auscultation bilaterally
ABDOM: soft, nontender, nondistended, + bowel sounds
EXT: no cyanosis, clubbing, or edema
NEUROLOGIC: grossly intact
: donovan with cloudy urine
Sepsis (POA, likely early by criteria)-�likely secondary to urinary retention with UTI/pyelo based on CT scan findings--has had donovan before AND Klebsiella pneumonia UTI with bacteremia--ADMIT--cont IVF x 1 L at 60 ml/hr--cont Unasyn--follow blood
and urine cultures--cont donovan--consult urology--cont proscar, add tamsulosin HS (silodosin changed to tamsulosin)
History of prostatomegaly with urinary retention and bilateral hydronephrosis--has had donovan in past--was at urologist office last Monday and was determined that he was emptying his bladder--currently retaining with donovan cath replaced
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
Essential hypertension--Continue Toprol with holding parameters.
Paroxysmal A-fib--Continue Eliquis 2.5 p.o. twice daily.
Chronic HFmrEF---Continue GDMT with Lasix, Toprol�limited by renal function and hypotension--had ECHO recently, no need to repeat
NIDDM type II--Recent A1c 6.9---Januvia reduced to 25 mg for poor renal function--Will cover with insulin sliding scale with Accu-Cheks---Diabetic diet.
DVT PPx--Eliquis
CODE STATUS-full code
spoke with daughter at bedside and via phone--pt with h/o TIA in past so facial droop not new--watch for improvement with treatment--PT/OT
Original Note:
Family Physician
-
Family Physician: Shonda Locke
Chief Complaint
-
Urinary retention
History of Present Illness
Trent is an 88-year-old male with PMH of BPH (on finasteride), paroxysmal A-fib (on Eliquis), CKD stage IIIb, essential hypertension, [id number] diabetes mellitus, hypercholesterolemia, who presented to ED on 12/25/2023 with complaints
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 He was recently discharged from this hospital for urosepsis secondary to obstructive uropathy from enlarged prostate. His daughter reports that his Donovan was removed a week ago and he was
subsequently taken to his urologist where it was confirmed that he was emptying his bladder adequately. Patient reports that he has been urinating normally but has not been measuring his urine output. Patient's was contacted over the phone
and confirmed that patient has lost about 2lbs over the weekend. Patient denies difficulty urinating, chest pain, shortness of breath, abdominal pain, nausea, vomiting, loss of appetite, fever, or chills.
Medical History
Past Medical History
Past Medical History: Reports Arrhythmia, HTN, Hypercholesterolemia, NIDDM and Other (Ventral hernia)
Past Surgical History: Reports Bowel Resection and Orthopedic
Social History
Tobacco: Non-smoker
Alcohol: None
Drug: None
Personal:
Living: With Family
Employment: Retired
Family History
Family History: Not pertinent
Allergies / Home Medications
Allergies reflects when Allergies were last updated in [facility].
Home Medications with original date entered in [facility]
Allergy/Medication List:
Allergies
Allergy/AdvReac Type Severity Reaction Status Date / Time
No Known Allergies Allergy Verified 04/14/23 21:35
Home Medications
atorvastatin 40 mg tablet 40 mg PO QPM 10/05/20
omeprazole 20 mg capsule,delayed release 20 mg PO DAILY Gastrointestinal issue 10/05/20
fenofibrate 54 mg tablet 54 mg PO DAILY High cholesterol 08/04/21
apixaban 2.5 mg tablet (Eliquis) 2.5 mg PO BID #60 tabs 08/06/21
acetaminophen 500 mg tablet (Tylenol Extra Strength) 1,000 mg PO Q6HPRN PRN mild Pain 04/24/22
sertraline 50 mg tablet 50 mg PO DAILY Mental Health/Anxiety 04/24/22
sitagliptin phosphate 50 mg tablet (Januvia) 50 mg PO DAILY Diabetes 08/20/22
latanoprost 0.005 % eye drops 1 drp LEFT EYE HS Eye Condition 09/30/23
psyllium 1 packet PO DAILY Constipation 09/30/23
silodosin 8 mg capsule 8 mg PO QPM Urinary Issue 09/30/23
vitamin B complex 1 tab PO DAILY Supplement 09/30/23
finasteride 5 mg tablet 5 mg PO DAILY Urinary issue 1 month #30 tabs 10/06/23
gabapentin 100 mg capsule 100 mg PO HS Neurological Condition 1 month #30 caps 10/06/23
albuterol sulfate 2.5 mg/3 mL (0.083 %) solution for nebulization 2.5 mg inhalation R Q6HPRN PRN sob 12/25/23
atorvastatin 10 mg tablet 10 mg PO QPM 12/25/23
cefdinir 300 mg capsule 300 mg PO Q12H Urinary issue 12/25/23
desloratadine 5 mg tablet 5 mg PO DAILY 12/25/23
diclofenac sodium 1 % topical gel 2 g topical Q8HPRN PRN lower back 12/25/23
fluticasone propionate 50 mcg/actuation nasal spray,suspension 1 spray intranasal HS 12/25/23
furosemide 20 mg tablet 20 mg PO DAILY 12/25/23
loratadine 10 mg tablet (Claritin) 10 mg PO HS 12/25/23
magnesium oxide 250 mg PO NOON 12/25/23
metoprolol succinate 25 mg tablet,extended release 24 hr (Toprol XL) 12.5 mg PO DAILY Heart disease/condition 12/25/23
midodrine 2.5 mg tablet 2.5 mg PO BIDPRN PRN if BP<110 12/25/23
Review of Systems
-
History Source: Patient and Family
A 12 point ROS was completed and negative except as noted: Yes
Constitutional: Reports Fatigue; Denies Fever or Chills
Respiratory: Reports No Symptoms; Denies Trouble Breathing
Cardiac: Reports No Symptoms; Denies Chest Pain or Palpitations
Abdomen/GI: Reports No Symptoms; Denies Abdominal Pain, Nausea, Vomiting or Diarrhea
: Reports Difficulty Voiding; Denies Flank Pain or Urgency
Physical Exam
Vital Signs
Vital Signs
Temp Pulse Resp BP Pulse Ox
98.7 F 81 21 94/48 93
12/25/23 14:18 12/25/23 19:07 12/25/23 19:07 12/25/23 19:06 12/25/23 19:07
Physical Exam
General: No Apparent Distress and Comfortable
Respiratory: Clear and Non Labored Respirations; No Wheezes or Crackles
Cardiac: S1/S2 and Irregular Rhythm; No Murmur or Rub
GI: Soft, Non Tender, Non Distended and Normal Bowel Sounds
Genito-urinary: Turbid Urine and Donovan; No Bloody Urine
Skin: Warm and Dry
Neuro: Awake, Alert and AO x 3
Psych: Calm
Laboratory Results
-
12/25/23 14:31
12/25/23 14:31
Laboratory Results
Total Bilirubin 1.3 mg/dl (0.2-1.3) 12/25/23 14:31
AST 30 U/L (17-59) 12/25/23 14:31
ALT 17 U/L (0-50) 12/25/23 14:31
Alkaline Phosphatase 39 U/L (38-126) 12/25/23 14:31
Data Reviewed
-
CT Scan: Image Personally Visualized and interpreted, Report Reviewed by me and Discussed with Physician
Lab Data: Labs Reviewed by me and Discussed with Physician
Old Records: Reviewed
Impression/Plan
-
IMPRESSION: 88-year-old male with PMH of BPH on Flomax, paroxysmal A-fib on Eliquis, CKD stage IIIb who presented to ED on 12/24 with complaints of dizziness and confusion that started in the morning of presentation. He was recently discharged
from this hospital on 09/29 for Klebsiella pneumonia bacteremia and sepsis secondary to UTI and urinary retention.
ASSESSMENT/PLAN:
#Sepsis�secondary to urinary retention.
-Admit to [facility].
-History of prostatomegaly with urinary retention and bilateral hydronephrosis.
-Complicated UTI secondary to above.
-CT abdomen/pelvis.
-Continue Donovan.
-silodosin changed to tamsulosin
-Continue antibiotics with Unasyn.
-Follow urine and blood cultures.
-Urology consult (follows Dr. Montalvo).
-Monitor I's and O's, daily weights.
#Mild leukocytosis.
-Suspect secondary to pyelonephritis.
-CT abd/pel reports fat stranding suspicious for UTI/pyelonephritis.
-Continue antibiotics.
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
-Creatinine 2.8, baseline 1.4 with EGFR 21.04
-Suspect prerenal azotemia vs postrenal.
-Continue IV fluid.
-Monitor and follow renal function/volume status.
#Essential hypertension
-Continue Toprol with holding parameters.
#Paroxysmal A-fib
-Continue Eliquis 2.5 p.o. twice daily.
-Monitor on telemetry.
#Chronic HFmrEF.
-Continue GDMT with Lasix, Toprol�limited by renal function and hypotension.
#NIDDM type II
-Recent A1c 6.9.
-Januvia reduced to 25 mg for poor renal function
-Will cover with insulin sliding scale with Accu-Cheks.
-Diabetic diet.
DVT PPx-Eliquis
CODE STATUS-full code
Data:
CT abdomen/pelvis 12/25/2023:
No CT evidence for nephroureterolithiasis or hydronephrosis. Left perinephric inflammatory fat stranding may be secondary to an ascending urinary tract infection/pyelonephritis in the appropriate clinical setting. Collapsed urinary bladder with a
Donovan catheter in place.
[2023-12-25] MEDS: ELIQUIS 2.5 MG PO (20:48)
[2023-12-25] MEDS: FLOMAX 0.4 MG PO (20:53)
[2023-12-25] MEDS: CLARITIN 10 MG PO (20:53)
[2023-12-25] MEDS: NEURONTIN 100 MG PO (20:53)
[2023-12-25] MEDS: XALATAN OPHTHALMIC SOLUTION 1 DROP LEFT EYE (20:54)
[2023-12-25 22:06] LABS: Glucose - Point of Care 126 mg/dl (70-99)
[2023-12-26] VITALS (8 sets, daily range): BP systolic 106–134; BP diastolic 53–68; PULSE 83; O2SAT 93; BMI 26.6
[2023-12-26] MEDS: UNASYN IV (05:14)
--- NOTE | 2023-12-26 06:35 | PTCARENOTE ---
Patient received from ED via stretcher and was pulled to bed by staff. He was oriented to room and surroundings. See nursing assessment for physical findings. IVF as ordered. Call [facility] in reach.
--- NOTE | 2023-12-26 06:43 | CON.MD ---
Consultation - Medical
-
see dictated note
pt known to me
hx of retention
had donovan removed last week- seemd to be emptying- but now readmitted with > 1 liter residual and prob UTI
catheter draining clear urine
plan
continue donovan
hold eliquis if hematuria develops
continue prostate meds- however pt now prob need to keep donovan chronically and is not an operative candidate
will call family today to review
[2023-12-26 07:43] LABS: Glucose - Point of Care 116 mg/dl (70-99)
--- NOTE | 2023-12-26 07:47 | W.PN.HOSP.TC ---
Addendum entered and electronically signed by Chinyere Rose MD 12/26/23 20:12:
I saw and evaluated the patient independently. I reviewed the resident�s note and agree with findings and plan as documented by Dr. Foster.
GENERAL: chronically ill appearing male in no apparent distress--garbled speech
HEENT: NC/AT -- no O2 requirements--dry mucous membranes--corner of left mouth with droop
HEART: irreg irreg
LUNGS : clear to auscultation bilaterally
ABDOM: soft, nontender, nondistended, + bowel sounds
EXT: no cyanosis, clubbing, or edema
NEUROLOGIC: regaining some movement of left side
: donovan with cloudy urine
acute CVA--pt had rapid response for stroke alert for left sided flaccid (new) and left facial droop (not new) along with minimal responsiveness--had STAT head CT without acute findings, had STAT CTA without large vessel occlusion--got urgent
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
strict NPO--no seizures noted on EEG but did get keppra loaded--apprec neurology--had discussion with family and to update findings, explained situation, failed speech etc...pt now made DNR and said no feeding tubes....
Sepsis (POA, likely early by criteria)-�likely secondary to urinary retention with UTI/pyelo based on CT scan findings--has had donovan before AND Klebsiella pneumonia UTI with bacteremia---cont IVF at 60 ml/hr--Unasyn changed to ceftriaxone due to
lowering seizure threshold--urine and blood cultures positive for Klebsiella pneumoniae again--follow blood cultures to clearance--cont donovan--apprec urology, no further voiding trials, donovan to stay permanently--cont proscar, add tamsulosin HS
(silodosin changed to tamsulosin)
History of prostatomegaly with urinary retention and bilateral hydronephrosis--has had donovan in past--was at urologist office last Monday and was determined that he was emptying his bladder--currently retaining with donovan cath replaced--no further
plans to do TOV
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
Essential hypertension--Continue Toprol with holding parameters.
Paroxysmal A-fib--Eliquis stopped
Non ischemic myocardial injury secondary to sepsis and RV strain--trend
Chronic HFmrEF---Continue GDMT with Lasix, Toprol�limited by renal function and hypotension--had ECHO recently, no need to repeat
NIDDM type II--Recent A1c 6.9---Januvia reduced to 25 mg for poor renal function--Will cover with insulin sliding scale with Accu-Cheks---Diabetic diet.
DVT PPx--Eliquis stopped
CODE STATUS--DNR
Original Note:
Today's Communication/Plan
-
N.p.o.
Unasyn changed to ceftriaxone
Stop Eliquis, start aspirin
Echo in a.m.
CODE STATUS now DNR
Continue Keppra
Continue antibiotics
Trend troponin
Assessment / Plan
Assessment / Plan
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 Was recently discharged from this
hospital for urosepsis secondary to obstructive uropathy from enlarged prostate. He was also observed to have a left facial droop which family confirmed has been there due to remote TIA.
Assessment/plan:
#Sepsis�secondary to recurrent urinary retention with UTI based on CT Abd/Pel findings 12/24.
-Suspect neurogenic bladder vs worsening BPH.
-Patiently discharged with Klebsiella pneumonia UTI with bacteremia.
-Blood cultures 12/24 preliminary with Klebsiella pneumoniae 1 of 2 sets of blood cultures; urine cultures growing gram-negative bacilli.
-Unasyn changed to ceftriaxone due to concerns for seizure.
-Follow cultures and sensitivities.
-Patient will likely need indwelling Donovan catheter we will forward per urology.
-Continue tamsulosin.
-Not a candidate for TURP or suprapubic tube given his abdominal hernia.
-Urology following.
#Acute left-sided weakness-suspect Eliquis failure.
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
-CTA head and neck negative for severe carotid stenosis.
-Eliquis discontinued to prevent hemorrhagic conversion; will start aspirin.
-NPO
-Keppra load and EEG per neurology.
-Echo in a.m.
-Glucose level 143.
-Neurology following and appreciated.
#Non-[place] troponin elevation
-Suspect RV strain.
-Will trend.
#Mild leukocytosis.
-Resolved.
-Continue antibiotics.
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
-Creatinine 2.8, baseline 1.4 with EGFR 21.04
-Suspect prerenal azotemia vs postrenal.
-Continue IV fluid.
-Monitor and follow renal function/volume status.
#Essential hypertension
-Continue Toprol with holding parameters.
#Paroxysmal A-fib
-Continue Eliquis 2.5 p.o. twice daily.
-Monitor on telemetry.
#Chronic HFmrEF.
-Continue GDMT with Lasix, Toprol�limited by renal function and hypotension.
#NIDDM type II
-Recent A1c 6.9.
-Januvia reduced to 25 mg for poor renal function
-Will cover with insulin sliding scale with Accu-Cheks.
-Diabetic diet.
DVT PPx-Eliquis
CODE STATUS-DNR�reached after talking to family/POA
Data:
CT abdomen/pelvis 12/25/2023:
No CT evidence for nephroureterolithiasis or hydronephrosis. Left perinephric inflammatory fat stranding may be secondary to an ascending urinary tract infection/pyelonephritis in the appropriate clinical setting. Collapsed urinary bladder with a
Donovan catheter in place.
CT head without contrast 12/26/2023: No acute intracranial abnormality
CT head and neck 12/26/2023:
Atherosclerosis of the carotid arterial system bilaterally with no findings to suggest hemodynamically significant stenosis of the internal carotid arteries bilaterally.
No findings to suggest internal carotid artery or vertebral artery dissection bilaterally.
No evidence of significant proximal intracranial arterial vessel cut off or stenosis.
MRI brain without contrast 12/26/2023:
Restricted diffusion within the lateral right frontal lobe and the right insula consistent with acute infarction. There is linear FLAIR hyperintense signal with a small focus of blooming artifact along the superior aspect of the right sylvian
fissure which is suggestive of slow flow and possible distal MCA thrombus.
Sequelae of moderate small vessel ischemic disease with small focus of consolidation along the superior left frontal lobe.
EEG 12/26/2023:
This is an abnormal awake and drowsy EEG due to continuos right hemispheric slowing indicative of structural lesion in the above region and generalized slowing consistent with encephalopathy, not specific in terms of etiology. No epileptiform
activity was seen.�
Anticipated Discharge: > 48 hours
Subjective/Interval History
-
Date of Service: December 26, 2023
Patient was seen and examined in the room eating breakfast. He had a mild word finding difficulty, confused and was unable to feed himself. He reports that he is able to feed himself at home and required minimal help with this ADLs. He was later
found to be having a left facial droop (which was also observed on admission and reported that patient had TIA in the past with residual left-sided droop), and left-sided weakness (new), and an forced right gaze deviation. Stroke alert was
called and patient was taking for an emergent CT. Patient was evaluated with a CT head, CTA head and neck which were both unremarkable. Back in the room, patient had mild recovery of his left extremities but was still unable to properly articulate
words.
Discussed with patient's and 2 daughters about CODE STATUS given patient's new stroke. Patient family has reached a consensus to change CODE STATUS from full code to DNR at this time. They will continue to have discussions with the hospice
team in order to make decisions about accepting hospice moving forward.
Objective Data
-
Labs:
Laboratory Results
12/26/23
07:14
WBC Pending
Hgb Pending
Hct Pending
Plt Count Pending
Sodium Pending
Potassium Pending
Chloride Pending
Carbon Dioxide Pending
BUN Pending
Creatinine Pending
Glucose Pending
Calcium Pending
Vital Signs:
Vital Signs
Temp Pulse Resp BP Pulse Ox
97.8 F 88 20 124/53 96
12/26/23 03:27 12/26/23 03:27 12/26/23 03:27 12/26/23 03:27 12/26/23 03:27
I&O
12/25/23 12/26/23 12/27/23
06:59 06:59 06:59
Intake Total 360 / 360 660 / 660
Output Total 800 / 800
Balance -440 / -440 660 / 660
Review of Systems
-
History Source: Patient
All other systems: Not reviewed unless documented
Constitutional: Reports No Symptoms; Denies Fever or Chills
Respiratory: Reports No Symptoms; Denies Cough or Wheezing
Cardiac: Reports No Symptoms; Denies Chest Pain or Palpitations
Abdomen/GI: Reports No Symptoms; Denies Abdominal Pain, Nausea, Vomiting or Diarrhea
Skin: Reports No Symptoms
Physical Exam
-
General: No Apparent Distress and Comfortable
HEENT: Normocephalic and Atraumatic
Respiratory: Clear to Auscultation; Negative Wheezes, Rhonchi or Crackles
Cardiac: S1/S2 and Irregular Rhythm; Negative Murmur
GI: Soft, Nontender, Nondistended and Normal Bowel Sounds
Genito-urinary: Turbid Urine and Donovan
Musculoskeletal: No Clubbing, No Cyanosis and No Edema
Skin: Warm
Neuro: Awake, Alert and Facial Droop (Left)
Psych: Calm and Confused
Data Reviewed
-
CT Scan: Image personally visualized and interpreted, Report Reviewed by me and Discussed with Physician
Labs: Labs Reviewed by me and Discussed with Physician
Old Records: Reviewed
[2023-12-26 08:08] LABS: Hematocrit 33.7 % (39.0-52.0); Hemoglobin 10.9 g/dL (13.0-18.0); Mean Corp Hgb Conc. 32.3 g/dL (33.0-37.0); Mean Corpuscular Hgb 30.3 pg (27.0-31.0); Mean Corpuscular Volume 93.6 fL (80.0-94.0); Mean Platelet Volume 10.6 fL (7.4-10.4); Platelet Count 144 10^3/uL (130-400); Red Cell Dist. Width 14.7 % (11.5-14.5); White Blood Cell Count 10.8 10^3/uL (4.8-10.8)
[2023-12-26] MEDS: JANUVIA 25 MG PO (08:12)
[2023-12-26] MEDS: B COMPLEX w/VITAMIN C 1 CAPLET PO (08:12)
[2023-12-26] MEDS: METAMUCIL, KONSYL 1 PACKET PO (08:12)
[2023-12-26] MEDS: ZOLOFT 50 MG PO (08:13)
[2023-12-26] MEDS: LASIX 20 MG PO (08:13)
[2023-12-26] MEDS: TOPROL XL 12.5 MG PO (08:13)
[2023-12-26] MEDS: ELIQUIS 2.5 MG PO (08:13)
[2023-12-26] MEDS: PROSCAR 5 MG PO (08:13)
[2023-12-26] MEDS: PROTONIX 40 MG PO (08:13)
--- NOTE | 2023-12-26 08:27 | VNURNOTE ---
Chart reviewed. Patient is current with [facility] nursing, OT, PT. Will continue to follow hospital course and DC plans.
[2023-12-26 08:29] LABS: Blood Urea Nitrogen 66 mg/dl (9-20); Calcium 8.9 mg/dl (8.4-10.2); Carbon Dioxide 22 mmol/L (22-30); Chloride 107 mmol/L (98-107); Estimated Creatinine Clearance 19 ml/min; Glucose 126 mg/dl (70-99); Potassium 3.7 mmol/L (3.5-5.1); Sodium 145 mmol/L (135-145); eGFR 20.17
[2023-12-26 09:16] LABS: Vitamin B12 457 pg/ml (239-931)
[2023-12-26 11:51] LABS: Glucose - Point of Care 143 mg/dl (70-99)
--- NOTE | 2023-12-26 11:52 | CON.NEURO ---
Consultation
Order
Date of Consultation: 12/26/23
Reason for Consult: stroke alert
Called in at: 11:45 AM
Neurology consultation note.
CC: none
HPI: This is an 88-year-old man who presented to [facility] on 12/25/2023 with sepsis. Stroke alert was initiated for left-sided weakness.
Last time seen in usual state of health-recently, when PT assessed him(time is to be clarified, no PT documentation is available.
MAR: Eliquis 2.5 administered at 8:18 AM on 12/26/2023.
Labs: glucose�143
PDMP: No prescribed medication
PMH: Paroxysmal A-fib, HTN, DLP, DM, CKD, YANI, BPH, obstructive uropathy
SH: , non-smoker
All:NKDA
ROS: Unable due to encephalopathy
VS: 109/60, 90, 37. 24
General: In no acute distress
Mental Status: Awake, does not attempt to follow requests. No verbal output
Cranial Nerves: Forced gaze deviation to the right. Mild left facial weakness no blink to threat on the right
Sensory: Unable due to encephalopathy
Coordination: No tremors, myoclonic movement
Gait: deferred
Assessment and Plan:
I. Acute right MCA syndrome versus focal seizure. Not a candidate for IV thrombolysis due to active anticoagulation.
II. PA A-Fib
III. Encephalopathy
-Seizure precautions
-Follow-up CT head without, and CTA head neck.
-Avoid medications, known to lower seizure threshold(Unasyn OD may cause seizure)
-Please check Mg, TFTs
-No no LVO-please proceed with Keppra load and EEG.
-Case was discussed with patient's family.
I personally reviewed all radiology and labs along with past medical records pertinent to current medical problems. Total time spent in patient care is 60 minutes.
Thank you for allowing us to participate in the care of this patient. We will continue to follow. Please do not hesitate to contact us with any questions or concerns.
Subjective/Objective
Subjective Data
Date of Service: December 26, 2023
Objective Data
Vital Signs
Temp Pulse Resp BP Pulse Ox
37.3 C 90 24 109/60 93
12/26/23 11:17 12/26/23 11:17 12/26/23 11:17 12/26/23 11:17 12/26/23 11:17
Lab Results
12/26/23 07:14
12/26/23 07:14
Sodium 145 mmol/L (135-145) 12/26/23 07:14
Potassium 3.7 mmol/L (3.5-5.1) 12/26/23 07:14
BUN 66 mg/dl (9-20) H 12/26/23 07:14
Glucose 126 mg/dl (70-99) H 12/26/23 07:14
Calcium 8.9 mg/dl (8.4-10.2) 12/26/23 07:14
Vitamin B12 457 pg/ml (239-931) 12/26/23 07:14
Patient Allergies
No Known Allergies Allergy (Verified 04/14/23 21:35)
Medications
-
Active Medications
Generic Name Dose Route Start Last Admin
Trade Name Freq PRN Reason Stop Dose Admin
Acetaminophen 650 mg 12/25/23 19:42
Acetaminophen 325 Mg Tablet PO 01/22/24 19:41
Q4HPRN PRN
mild pain or temp >/= 100
Albuterol Sulfate 2.5 mg 12/25/23 19:42
Albuterol Nebs 2.5 Mg/3 Ml Ampul INH
R Q6HPRN PRN
sob
Protocol
Apixaban 2.5 mg 12/25/23 20:00 12/26/23 08:13
Apixaban (Eliquis) 2.5 Mg Tablet PO 01/22/24 19:59 2.5 mg
BID ARCADIO Administration
Atorvastatin Calcium 10 mg 12/26/23 18:00
Atorvastatin (Lipitor) 10 Mg Tablet PO 01/23/24 17:59
QPM ARCADIO
Bisacodyl 10 mg 12/25/23 19:42
Bisacodyl 10 Mg Rectal Suppository RECTAL 01/22/24 19:41
[id number] PRN
constipation
Dextrose 12.5 grams 12/25/23 20:16
Dextrose 50% (0.5 Grams/Ml) 50 Ml Syringe IV 01/22/24 20:15
[id number] PRN
hypoglycemia
Protocol
Diclofenac Sodium 2 gram 12/25/23 19:42
Diclofenac 1% Topical Gel 100 Gram Tube TOPICAL 01/22/24 19:41
Q8HPRN PRN
lower back
Protocol
Finasteride 5 mg 12/26/23 08:00 12/26/23 08:13
Finasteride 5 Mg Tablet PO 01/23/24 07:59 5 mg
DAILY ARCADIO Administration
Furosemide 20 mg 12/26/23 08:00 12/26/23 08:13
Furosemide 20 Mg Tablet PO 01/23/24 07:59 20 mg
DAILY ARCADIO Administration
Gabapentin 100 mg 12/25/23 22:00 12/25/23 20:53
Gabapentin 100 Mg Capsule PO 01/22/24 21:59 100 mg
HS ARCADIO Administration
Glucagon 1 mg 12/25/23 20:16
Glucagon 1 Mg Vial IM 01/22/24 20:15
PRN PRN
hypoglycemia
Protocol
Sodium Chloride 1,000 mls @ 60 mls/hr 12/25/23 19:42 12/25/23 20:47
Nss IV 1,000 mls
.[id number] ARCADIO Administration
Ampicillin Sodium/Sulbactam 60 mls @ 120 mls/hr 12/26/23 06:00 12/26/23 05:14
Sodium 1.5 gm/ Sodium Chloride IV 60 mls
Q12H ARCADIO Administration
Insulin Aspart 0 units 12/26/23 07:30 12/26/23 07:57
Insulin Aspart Low Resistance 300 Units/3 Ml Pen.Injctr SC 01/23/24 07:29 Not Given
AC ARCADIO
Protocol
Latanoprost 0 drop 12/25/23 22:00 12/25/23 20:54
Latanoprost 0.005% (Ophthalmic Solution) 2.5 Ml Bottle LEFT EYE 01/22/24 21:59 1 drop
HS ARCADIO Administration
Loratadine 10 mg 12/25/23 22:00 12/25/23 20:53
Loratadine 10 Mg Tablet PO 01/22/24 21:59 10 mg
Q48H ARCADIO Administration
Magnesium Oxide 250 mg 12/26/23 12:00
Magnesium Oxide 500 Mg Tablet PO 01/23/24 11:59
NOON ARCADIO
Metoprolol Succinate 12.5 mg 12/26/23 08:00 12/26/23 08:13
Metoprolol 12.5 Mg Extended Release Dose (1/2 Of 25 Mg Xl Tablet) PO 01/23/24 07:59 12.5 mg
DAILY ARCADIO Administration
Midodrine 2.5 mg 12/25/23 19:42
Midodrine 2.5 Mg Tablet PO 01/22/24 19:41
BIDPRN PRN
if BP<110
Oxycodone/Acetaminophen 1 tablet 12/25/23 20:36
Oxycodone 5 Mg/Apap 325 Mg (Percocet) PO 01/08/24 20:34
Q6HPRN PRN
mild pain
Oxycodone/Acetaminophen 2 tablet 12/25/23 20:36
Oxycodone 5 Mg/Apap 325 Mg (Percocet) PO 01/08/24 20:34
Q6HPRN PRN
moderate pain
Pantoprazole Sodium 40 mg 12/26/23 08:00 12/26/23 08:13
Pantoprazole 40 Mg Delayed Release Tablet PO 01/23/24 07:59 40 mg
DAILY ARCADIO Administration
Polyethylene Glycol 17 grams 12/25/23 19:42
Polyethylene Glycol Powder 17 Grams Packet PO 01/22/24 19:41
DAILYPRN PRN
constipation
Psyllium Hydrophilic Mucilloid 1 packet 12/26/23 08:00 12/26/23 08:12
Psyllium Packet PO 01/23/24 07:59 1 packet
DAILY ARCADIO Administration
Senna/Docusate Sodium 1 tablet 12/25/23 19:42
Docusate W/Senna (Lea-Colace) Tablet PO 01/22/24 19:41
BIDPRN PRN
constipation
Sertraline HCl 50 mg 12/26/23 08:00 12/26/23 08:13
Sertraline 50 Mg Tablet PO 01/23/24 07:59 50 mg
DAILY ARCADIO Administration
Sitagliptin Phosphate 25 mg 12/26/23 08:00 12/26/23 08:12
Sitagliptin (Januvia) 50 Mg Tablet PO 01/23/24 07:59 25 mg
DAILY ARCADIO Administration
Sodium Chloride 0 flush 12/25/23 20:00
Sodium Chloride 0.9% (Flush) Syringe IV 01/22/24 19:59
PER PROTOCOL ARCADIO
Tamsulosin HCl 0.4 mg 12/25/23 22:00 12/25/23 20:53
Tamsulosin 0.4 Mg Capsule PO 01/22/24 21:59 0.4 mg
HS ARCADIO Administration
Vitamin B Complex/Vitamin C 1 caplet 12/26/23 08:00 12/26/23 08:12
Vitamin B Complex With Vitamin C Caplet PO 01/23/24 07:59 1 caplet
DAILY ARCADIO Administration
Home Medications
�Medication �Instructions �Recorded
atorvastatin 40 mg tablet 40 mg PO QPM 10/05/20
omeprazole 20 mg capsule,delayed 20 mg PO DAILY Gastrointestinal 10/05/20
release issue
fenofibrate 54 mg tablet 54 mg PO DAILY High cholesterol 08/04/21
apixaban 2.5 mg tablet (Eliquis) 2.5 mg PO BID #60 tabs 08/06/21
acetaminophen 500 mg tablet 1,000 mg PO Q6HPRN PRN mild Pain 04/24/22
(Tylenol Extra Strength)
sertraline 50 mg tablet 50 mg PO DAILY Mental 04/24/22
Health/Anxiety
sitagliptin phosphate 50 mg tablet 50 mg PO DAILY Diabetes 08/20/22
(Januvia)
latanoprost 0.005 % eye drops 1 drp LEFT EYE HS Eye Condition 09/30/23
psyllium 1 packet PO DAILY Constipation 09/30/23
silodosin 8 mg capsule 8 mg PO QPM Urinary Issue 09/30/23
vitamin B complex 1 tab PO DAILY Supplement 09/30/23
finasteride 5 mg tablet 5 mg PO DAILY Urinary issue 1 10/06/23
month #30 tabs
gabapentin 100 mg capsule 100 mg PO HS Neurological 10/06/23
Condition 1 month #30 caps
albuterol sulfate 2.5 mg/3 mL 2.5 mg inhalation R Q6HPRN PRN sob 12/25/23
(0.083 %) solution for nebulization
atorvastatin 10 mg tablet 10 mg PO QPM 12/25/23
cefdinir 300 mg capsule 300 mg PO Q12H Urinary issue 12/25/23
desloratadine 5 mg tablet 5 mg PO DAILY 12/25/23
diclofenac sodium 1 % topical gel 2 g topical Q8HPRN PRN lower back 12/25/23
fluticasone propionate 50 1 spray intranasal HS 12/25/23
mcg/actuation nasal
spray,suspension
furosemide 20 mg tablet 20 mg PO DAILY 12/25/23
loratadine 10 mg tablet (Claritin) 10 mg PO HS 12/25/23
magnesium oxide 250 mg PO NOON 12/25/23
metoprolol succinate 25 mg 12.5 mg PO DAILY Heart 12/25/23
tablet,extended release 24 hr disease/condition
(Toprol XL)
midodrine 2.5 mg tablet 2.5 mg PO BIDPRN PRN if BP<110 12/25/23
[2023-12-26 13:14] LABS: INR 1.78; PT 20.9 Sec (11.4-14.6)
[2023-12-26 13:16] LABS: APTT 40.9 Sec (23.4-35.0)
[2023-12-26 13:19] LABS: Blood Urea Nitrogen 66 mg/dl (9-20); Calcium 8.9 mg/dl (8.4-10.2); Carbon Dioxide 18 mmol/L (22-30); Chloride 108 mmol/L (98-107); Estimated Creatinine Clearance 22 ml/min; Glucose 141 mg/dl (70-99); Potassium 3.6 mmol/L (3.5-5.1); Sodium 141 mmol/L (135-145)
[2023-12-26] MEDS: NSS IV (13:43)
[2023-12-26 14:06] LABS: Lactic Acid 0.9 mmol/L (0.7-2.0)
--- NOTE | 2023-12-26 14:25 | CM ---
Patient seen at bedside, s/p stroke alert, patient with new complaint of left sided weakness. Physicians also present. CM spoke with patient's Maylin;
the patient resides with his at [facility] in a 2nd floor apartment with elevator access. The patient has been independent in ADLs and ambulation using his rollator. Patient has been using [facility] and had been at [facility]
in the past. Patient is current with palliative care. Patient PCP is from [facility] . Patient uses the [facility] in [place]. Patient plan is uncertain at this time, Family asked to talk to Hospice to review
options. CM sent referral awaiting family meeting. CM will continue to follow for discharge planning needs.
Plan; TBD; hospice vs SNF pending further medical work up.
--- NOTE | 2023-12-26 14:26 | PTCARENOTE ---
Addendum entered by Chey Lai RN 12/26/23 15:19:
EEG completed. 1000 mg of IV Keppra given post EEG. Speech at bedside. 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
Original Note:
Called into patient room by physical therapy team due to change in mental status. Stroke alert and rapid response called. NIH score 19 at that time. Patient with flaccid left arm and leg, severely garbled speech, left sided facial droop, eyes
deviated to right side. Patient able to follow commands during the event. Patient taken to CT scan for head and MRA of head and neck. Neurologist at bedside post CT scan. EKG completed. EEG ordered and currently at bedside to perform test. Keppra IV
to be given post EEG. MRI of head pending. Patient not candidate for TPA due to receiving Eloquis this morning that is a home medication for his chronic afib. Some improvement ias now patient able to move left arm and leg slightly. and son at
bedside. Provided support and explanation of plan to family and patient.
[2023-12-26] MEDS: KEPPRA 1000 MG IV (15:14)
[2023-12-26] MEDS: STERILE WATER FOR INJECTION 20 ML IV ×2 (15:15→17:08)
--- NOTE | 2023-12-26 15:20 | PTOTSP ---
Speech Language Pathology
Pt seen for clinical bedside swallow evaluation. Severe oral and suspected severe pharyngeal dysphagia noted. P.O. trials of ice chip (x1) and 2ccs of thin liquid via pipetted straw (x1) provided. Oral cavity remained open with both trials.
Verbal cueing to close mouth and pt responded 'it is.' No swallow noted with ice chip. With thin liquid, pt required max cueing to initiate swallow with pt repeating 'swallow' when verbally cued to swallow. Resultant weak, wet coughing noted.
Further P.O. trials deferred.
Recommend:
(1) Strict NPO
(2) Not appropriate for Aspiration Risk Hydration Protocol (ARHP)
(3) Oral care 4x/day with suctioning as needed
(4) Non-oral meds
(5) CURVE CLEANER to continue to follow for dysphagia tx and speech/language evaluations
--- NOTE | 2023-12-26 15:27 | HOSPNOTE ---
Spoke with family at length about hospice and the philosophy. The family is having a family meeting this evening and will call me tomorrow. The patient is presently on palliative care. I also asked the family to discuss code status and please let
staff know. Will follow up tomorrow.
[2023-12-26 15:43] LABS: Magnesium 1.7 mg/dl (1.6-2.3)
--- NOTE | 2023-12-26 16:26 | EEGC.RPT ---
Continuous EEG Report
Report
TECHNICAL REMARKS:��This is a technically satisfactory eighteen channel record employing 21 disc electrodes applied according to a measured international 10-20 electrode placement system.��There were no significant technical difficulties.��The study
was done on a [employer]ewen System.
STUDY DURATION: 26 min, 9 sec.
CLINICAL INFORMATION:��This is an 88 year old man with left hemiparesis and right gaze deviation. This study was requested to look for epileptiform abnormalities.
REPORT: �At the onset of the EEG, the patient is awake. The background activity on the left consists of 6-7 Hz, persistent, posteriorly dominant, moderate in amplitude, asymmetric, and rhythmic activity. Continuous right hemispheric slowing is
present.� Stepwise intermittent photic stimulation (1-31 Hz) did not induce any additional abnormalities. Hyperventilation was not performed. Drowsiness is characterized by low amplitude mixed frequency activity, decreased eye blinking, and muscle
artifact.
IMPRESSION: �This is an abnormal awake and drowsy EEG due to continuos right hemispheric slowing indicative of structural lesion in the above region and generalized slowing consistent with encephalopathy, not specific in terms of etiology. No
epileptiform activity was seen.�
[2023-12-26 16:32] LABS: TSH 1.36 uIU/ml (0.47-4.68)
[2023-12-26] MEDS: ROCEPHIN 2000 MG IV (17:08)
--- NOTE | 2023-12-26 17:42 | W.PN.UPDATE ---
Update Note
Progress Note Update
spoke to patient's daughter and spouse regarding test results and management plan. All questions were answered.
[2023-12-26 18:01] LABS: Glucose - Point of Care 121 mg/dl (70-99)
[2023-12-26] MEDS: NOVOLOG FLEXPEN-LOW RESISTANCE SC (18:02)
[2023-12-26] MEDS: NSS 1000 IV (21:59)
[2023-12-26 22:13] LABS: Troponin I 0.895 ng/ml
[2023-12-26] MEDS: FLOMAX PO (22:24)
[2023-12-26] MEDS: NEURONTIN PO (22:24)
[2023-12-26] MEDS: XALATAN OPHTHALMIC SOLUTION 1 DROP LEFT EYE (22:36)
[2023-12-27] VITALS (7 sets, daily range): BP systolic 116–147; BP diastolic 70–83; PULSE 87–106; O2SAT 99; BMI 26.4
[2023-12-27 00:21] LABS: Glucose - Point of Care 122 mg/dl (70-99)
[2023-12-27] MEDS: NOVOLOG FLEXPEN-LOW RESISTANCE SC ×4 (00:37→18:06)
[2023-12-27 06:25] LABS: Glucose - Point of Care 110 mg/dl (70-99)
[2023-12-27 06:41] LABS: Glucose - Point of Care 124 mg/dl (70-99)
--- NOTE | 2023-12-27 07:36 | W.PN.HOSP.TC ---
Addendum entered and electronically signed by Chinyere Rose MD 12/27/23 14:39:
I saw and evaluated the patient independently. I reviewed the resident�s note and agree with findings and plan as documented by Dr. Foster.
GENERAL: chronically ill appearing male in no apparent distress--garbled speech
HEENT: NC/AT -- no O2 requirements--dry mucous membranes--corner of left mouth with droop
HEART: irreg irreg
LUNGS : clear to auscultation bilaterally
ABDOM: soft, nontender, nondistended, + bowel sounds
EXT: no cyanosis, clubbing, or edema
NEUROLOGIC: regaining some movement of left side
: donovan with clear urine
acute CVA--pt had rapid response for stroke alert on 12/26/23 for left sided flaccid (new) and left facial droop (not new) along with minimal responsiveness--had STAT head CT without acute findings, had STAT CTA without large vessel occlusion--got
urgent MRI--positive for acute right lateral frontal lobe acute infarct with small distal MCA thrombus (not enough to do thrombectomy)--pt not candidate for TNK lytic therapy due to Eliquis (stopped now, can restart on 12/28 as per neuro) and
started on asa--no seizures noted on EEG but did get keppra loaded--apprec neurology--failed speech eval with strict NPO--had discussion with family and to update findings, explained situation, failed speech etc...pt now made DNR and said
no feeding tubes....
Sepsis (POA, likely early by criteria)-�likely secondary to urinary retention with UTI/pyelo based on CT scan findings--has had donovan before AND Klebsiella pneumonia UTI with bacteremia---cont IVF at 60 ml/hr--Unasyn changed to ceftriaxone due to
lowering seizure threshold--urine and blood cultures positive for Klebsiella pneumoniae again--follow blood cultures to clearance--cont donovan--apprec urology, no further voiding trials, donovan to stay permanently--cont proscar--neuro raised concern
for septic emboli and endocarditis....await echo
History of BPH with urinary retention and bilateral hydronephrosis--has had donovan in past--was at urologist office last Monday and was determined that he was emptying his bladder--currently retaining with donovan cath replaced--no further plans to do
TOV
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
consult
Essential hypertension--Continue Toprol with holding parameters.
Paroxysmal A-fib--Eliquis stopped
Non ischemic myocardial injury secondary to sepsis and RV strain--trend
Chronic HFmrEF---Continue GDMT with Lasix, Toprol�limited by renal function and hypotension--had ECHO recently, no need to repeat
NIDDM type II--Recent A1c 6.9---Januvia reduced to 25 mg for poor renal function--Will cover with insulin sliding scale with Accu-Cheks---Diabetic diet.
DVT PPx--Eliquis stopped
CODE STATUS--DNR
Original Note:
Today's Communication/Plan
-
Strict n.p.o.
Echo today
Change ceftriaxone to cefazolin
Change Toprol to 5 mg IV Q 6H
Speech evaluation
Assessment / Plan
Assessment / Plan
Impression: 88-year-old male with PMH of BPH on finasteride, paroxysmal A-fib on Eliquis, CKD stage IIIb (now stage IV), who presented to ED on 12/24 with dizziness, confusion that started in the morning [employer]. Was recently discharged from this
hospital for urosepsis secondary to obstructive uropathy from enlarged prostate. He was also observed to have a left facial droop which family confirmed has been there due to remote TIA.
Assessment/plan:
#Acute right MCA stroke-confirmed on urgent MRI.
-Suspect embolic stroke from Eliquis failure vs left heart vegetations.
-Echo today.
-Patient not candidate for TNK lytic therapy while on Eliquis, from was not enough for thrombectomy.
-Stop Eliquis, started aspirin.
-Failed speech eval, strict NPO; will repeat speech eval today given family declined tube feeds.
-Early feeding.
-EEG with no seizure activities, started Keppra.
-Neurology appreciated.
-Long discussion with family with updated findings, family accepted patient to be DNR, declined feeding tubes.
#Sepsis�secondary to recurrent urinary retention with UTI based on CT Abd/Pel findings 12/24.
-Suspect neurogenic bladder vs worsening BPH.
-Blood cultures 12/24 positive in 2 of 2 sets of blood cultures; urine culture with Klebsiella pneumoniae.
-Will narrow ceftriaxone to cefazolin 2g Q 12H.
-Follow blood culture sensitivities.
-Patient will likely need indwelling Donovan catheter we will forward per urology.
-Continue tamsulosin.
-Urology appreciated.
# Nonischemic myocardial injury.
-Suspect secondary to sepsis and RV strain.
-Troponin peaked at 1.1
#Mild leukocytosis.
-Resolved.
-Continue antibiotics.
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
-Improved creatinine 2.3 (baseline 1.4).
-Continue IV fluid.
-Monitor and follow renal function/volume status.
#Essential hypertension
-Continue Toprol 5 mg IV Q6H with holding parameters.
#Paroxysmal A-fib
-Continue Toprol, Eliquis discontinued.
-Monitor on telemetry.
#Chronic HFmrEF.
-Continue GDMT with Lasix, Toprol�limited by renal function and hypotension.
#NIDDM type II
-Recent A1c 6.9.
-Januvia reduced to 25 mg for poor renal function
-Will cover with insulin sliding scale with Accu-Cheks.
-Diabetic diet.
DVT PPx-Eliquis
CODE STATUS-DNR�reached after talking to family/POA
Data:
CT abdomen/pelvis 12/25/2023:
No CT evidence for nephroureterolithiasis or hydronephrosis. Left perinephric inflammatory fat stranding may be secondary to an ascending urinary tract infection/pyelonephritis in the appropriate clinical setting. Collapsed urinary bladder with a
Donovan catheter in place.
CT head without contrast 12/26/2023: No acute intracranial abnormality
CT head and neck 12/26/2023:
Atherosclerosis of the carotid arterial system bilaterally with no findings to suggest hemodynamically significant stenosis of the internal carotid arteries bilaterally.
No findings to suggest internal carotid artery or vertebral artery dissection bilaterally.
No evidence of significant proximal intracranial arterial vessel cut off or stenosis.
MRI brain without contrast 12/26/2023:
Restricted diffusion within the lateral right frontal lobe and the right insula consistent with acute infarction. There is linear FLAIR hyperintense signal with a small focus of blooming artifact along the superior aspect of the right sylvian
fissure which is suggestive of slow flow and possible distal MCA thrombus.
Sequelae of moderate small vessel ischemic disease with small focus of consolidation along the superior left frontal lobe.
EEG 12/26/2023:
This is an abnormal awake and drowsy EEG due to continuos right hemispheric slowing indicative of structural lesion in the above region and generalized slowing consistent with encephalopathy, not specific in terms of etiology. No epileptiform
activity was seen.�
Anticipated Discharge: > 48 hours
Subjective/Interval History
-
Date of Service: December 27, 2023
I have seen and examined this patient. Patient was seen lying in bed, sleepy and in no acute apparent cardiopulmonary distress. He is worried she where poorly coherent, but he was able to answer few questions with a yes or no. He denies chest
pain, abdominal pain, shortness of breath. His neurologic exam improved today, so we may likely get another speech eval with n.p.o. and family has declined feeding. His vitals has remained stable and his urine output at goal.
Objective Data
-
Labs:
Laboratory Results
12/27/23
07:18
WBC Pending
Hgb Pending
Hct Pending
Plt Count Pending
Sodium Pending
Potassium Pending
Chloride Pending
Carbon Dioxide Pending
BUN Pending
Creatinine Pending
Glucose Pending
Calcium Pending
Vital Signs:
Vital Signs
Temp Pulse Resp BP Pulse Ox
97.6 F 78 20 130/72 96
12/27/23 07:35 12/27/23 07:35 12/27/23 07:35 12/27/23 07:35 12/27/23 07:35
I&O
12/26/23 12/27/23 12/28/23
06:59 06:59 06:59
Intake Total 360 / 360 900 / 900
Output Total 800 / 800 1300 / 1300
Balance -440 / -440 -400 / -400
Review of Systems
-
History Source: Patient
All other systems: Not reviewed unless documented
Constitutional: Reports No Symptoms; Denies Fever or Chills
Respiratory: Reports No Symptoms; Denies Cough or Wheezing
Cardiac: Reports No Symptoms; Denies Chest Pain or Palpitations
Abdomen/GI: Reports No Symptoms; Denies Abdominal Pain, Nausea, Vomiting or Diarrhea
Musculoskeletal: Denies Joint Swelling
Skin: Reports No Symptoms
Physical Exam
-
General: No Apparent Distress and Comfortable
HEENT: Normocephalic and Atraumatic
Respiratory: Clear to Auscultation; Negative Wheezes, Rhonchi or Crackles
Cardiac: S1/S2 and Irregular Rhythm; Negative Murmur
GI: Soft, Nontender, Nondistended and Normal Bowel Sounds
Genito-urinary: Turbid Urine and Donovan
Musculoskeletal: No Clubbing, No Cyanosis and No Edema
Skin: Warm and Dry
Neuro: Facial Droop (Left) and Other (Sleepy)
Psych: Calm and Confused
Data Reviewed
-
CT Scan: Image personally visualized and interpreted, Report Reviewed by me and Discussed with Physician
MRI: Image personally visualized and interpreted, Report Reviewed by me and Discussed with Physician
Labs: Labs Reviewed by me and Discussed with Physician
Old Records: Reviewed
[2023-12-27] MEDS: ASPIRIN 300 MG RECTAL (07:49)
--- NOTE | 2023-12-27 07:58 | W.PN.URO.CBU ---
Today's Communication / Plan
-
continue donovan and medical care
Assessment / Plan
-
urinary retention
UTI/bacteremia
spoke with yesterday
at this point- pt will need to continue donovan indefinitely
overall outlook poor
treat UTI
continue proscar and stop alpha dennis
outpt f/u in 4 weeks to change donovan
Diagnosis
-
Date of Service: December 27, 2023
-
Patient Diagnosis:
urinary retention
urosepsis
Subjective
-
pt had stroke yesterday- is not communictive this am
urine clear
cx's again + for klebsiella
Objective
-
Vital Signs
Temp Pulse Resp BP Pulse Ox
97.6 F 78 20 130/72 96
12/27/23 07:35 12/27/23 07:35 12/27/23 07:35 12/27/23 07:35 12/27/23 07:35
Intake and Output
12/26/23 12/27/23 12/28/23
06:59 06:59 06:59
Intake Total 360 / 360 900 / 900
Output Total 800 / 800 1300 / 1300
Balance -440 / -440 -400 / -400
Intake:
Oral fluids 360 / 360 240 / 240
IV fluids (Total) 600 / 600
IV piggybacks 60 / 60
Output:
Urine, Donovan 800 / 800 1300 / 1300
Review of Systems
-
Unable to obtain full review of systems at this time due to: Patient Non-verbal
Physical Exam
-
General - no acute distress
Abdomen - soft, non-tender
Genitalia - normal- donovan in place
[2023-12-27 08:06] LABS: Hematocrit 31.2 % (39.0-52.0); Hemoglobin 10.3 g/dL (13.0-18.0); Mean Corpuscular Hgb 30.9 pg (27.0-31.0); Mean Corpuscular Volume 93.7 fL (80.0-94.0); Mean Platelet Volume 10.5 fL (7.4-10.4); Platelet Count 136 10^3/uL (130-400); Red Blood Cell Count 3.33 10^6/uL (4.70-6.10); White Blood Cell Count 9.7 10^3/uL (4.8-10.8)
[2023-12-27] MEDS: METAMUCIL, KONSYL PO (08:18)
[2023-12-27] MEDS: LASIX PO (08:18)
[2023-12-27] MEDS: JANUVIA PO (08:18)
[2023-12-27] MEDS: B COMPLEX w/VITAMIN C PO (08:18)
[2023-12-27] MEDS: TOPROL XL PO (08:18)
[2023-12-27] MEDS: PROTONIX PO (08:18)
[2023-12-27] MEDS: PROSCAR PO (08:18)
[2023-12-27] MEDS: ZOLOFT PO (08:19)
--- NOTE | 2023-12-27 09:21 | CON.CAR ---
Addendum entered and electronically signed by Gama Boogie MD 12/27/23 17:02:
88 yo male with PMH of permanent A fib on eliquis, chronic HFrEF, prior CVA 2020 admitted with UTI and bacteremia. Then had recurrent CVA while inpatient. Exam with irregular rhythm, II/ systolic murmur at apex, 1+ LE edema. TnI peak 1.1. EKG:
A fib, iRBBB, PVC's.
CVA. He reports no missed doses of eliquis. We discussed transitioning to pradaxa once safe post-CVA. Eliquis is currently on hold in setting of acute CVA.
Bacteremia, UTI. Abx per primary team. Discussed topic of SHWETHA with patient, family, daughter Chinyere Flores ([phone]). Does not appear to be good candidate for SHWETHA. They also do not want invasive procedures, anesthesia. Will proceed with TTE.
Elevated troponin. Suspect acute non-ischemic myocardial injury in setting of UTI, and CVA. Check echo.
Original Note:
Consultation
Consultation Request
Date/Time Consultation Requested: 12/26/23 1800
Date/Time Consultation Performed: 12/27/23 0920
Requesting Provider: Dr. Ghosh
Performing Provider: Sandra COOLEY for Dr. Diop
Reason for Consultation: eval for endocarditis
Medical History
-
Chief Complaint: weakness, urinary burning
History of Present Illness:
88 y/o male (patient of Dr. Lopez) with permanent AFIB on Eliquis, HFrEF (most recent EF 44%), CVA 2020, hypertension, CKD (3b based on recent labs), UTI's, and DM2 who is here for evaluation of weakness and urinary burning since Monday. He is
being treated for sepsis related to UTI. Blood and urine culture reveal klebsiella pneumoniae. He is on IV antibiotics. BRIE is note and improving. He has a Donovan catheter in place. Yesterday, he had left sided weakness and change in speech. MRI
revealed acute infarct. We are consulted for eval for infective endocarditis. His , sister, and daughter are at the bedside and help with patient history of present illness.
Past Medical History
Past Medical History: Arrhythmias (AFIB), CHF, CVA, HTN, NIDDM and Other (as above)
Social History
Personal:
Living: With Family
Family History
Family History: Reviewed & Not Pertinent
Allergies / Home Medications
Allergy/AdvReac Type Severity Reaction Status Date / Time
No Known Allergies Allergy Verified 04/14/23 21:35
�Medication �Instructions �Recorded �Confirmed �Type
atorvastatin 40 mg tablet 40 mg PO QPM 10/05/20 12/25/23 History
omeprazole 20 mg capsule,delayed 20 mg PO DAILY Gastrointestinal 10/05/20 12/25/23 History
release issue
fenofibrate 54 mg tablet 54 mg PO DAILY High cholesterol 08/04/21 12/25/23 History
apixaban 2.5 mg tablet (Eliquis) 2.5 mg PO BID #60 tabs 08/06/21 12/25/23 Rx
acetaminophen 500 mg tablet 1,000 mg PO Q6HPRN PRN mild Pain 04/24/22 12/25/23 History
(Tylenol Extra Strength)
sertraline 50 mg tablet 50 mg PO DAILY Mental 04/24/22 12/25/23 History
Health/Anxiety
sitagliptin phosphate 50 mg tablet 50 mg PO DAILY Diabetes 08/20/22 12/25/23 History
(Januvia)
latanoprost 0.005 % eye drops 1 drp LEFT EYE HS Eye Condition 09/30/23 12/25/23 History
psyllium 1 packet PO DAILY Constipation 09/30/23 12/25/23 History
silodosin 8 mg capsule 8 mg PO QPM Urinary Issue 09/30/23 12/25/23 History
vitamin B complex 1 tab PO DAILY Supplement 09/30/23 12/25/23 History
finasteride 5 mg tablet 5 mg PO DAILY Urinary issue 1 10/06/23 12/25/23 Rx
month #30 tabs
gabapentin 100 mg capsule 100 mg PO HS Neurological 10/06/23 12/25/23 Rx
Condition 1 month #30 caps
albuterol sulfate 2.5 mg/3 mL 2.5 mg inhalation R Q6HPRN PRN sob 12/25/23 12/25/23 History
(0.083 %) solution for nebulization
atorvastatin 10 mg tablet 10 mg PO QPM 12/25/23 12/25/23 History
cefdinir 300 mg capsule 300 mg PO Q12H Urinary issue 12/25/23 12/25/23 History
desloratadine 5 mg tablet 5 mg PO DAILY 12/25/23 12/25/23 History
diclofenac sodium 1 % topical gel 2 g topical Q8HPRN PRN lower back 12/25/23 12/25/23 History
fluticasone propionate 50 1 spray intranasal HS 12/25/23 12/25/23 History
mcg/actuation nasal
spray,suspension
furosemide 20 mg tablet 20 mg PO DAILY 12/25/23 12/25/23 History
loratadine 10 mg tablet (Claritin) 10 mg PO HS 12/25/23 12/25/23 History
magnesium oxide 250 mg PO NOON 12/25/23 12/25/23 History
metoprolol succinate 25 mg 12.5 mg PO DAILY Heart 12/25/23 12/25/23 History
tablet,extended release 24 hr disease/condition
(Toprol XL)
midodrine 2.5 mg tablet 2.5 mg PO BIDPRN PRN if BP<110 12/25/23 12/25/23 History
Review of Systems
-
History Source: Patient, Family and Other (chart)
Constitutional: Other (weakness)
: Dysuria
Physical Exam
Vital Signs
Temp Pulse Resp BP Pulse Ox
97.6 F 78 20 130/72 96
12/27/23 07:35 12/27/23 07:35 12/27/23 07:35 12/27/23 07:35 12/27/23 07:35
Lab Results
12/27/23 07:18
Troponin I 0.895 ng/ml H* 12/26/23 21:35
Physical Exam
General: Well Developed, Well Nourished and No Apparent Distress
HEENT: Normocephalic and Anicteric
Respiratory: Clear and Non Labored Respirations
Cardiac: Murmur (II/ systolic murmur)
Musculoskeletal: No Edema
Skin: Warm and Dry
Neuro: Other (lethargic, but awakens to voice, answers simple questions and follows simple commands)
Psych: Calm
Impression / Plan
-
Sepsis, UTI, Bacteremia- klebsiella pneumonia:
-this diagnosis is threat to life
-on IV ABX
-Donovan in place- Uro is following
-echo to be done today in eval for infective endocarditis. At this time, he is not good candidate for SHWETHA (mental status, NPO for swallow eval, frailty), though I did discuss with family. Continue IV abx per primary.
Stroke:
-acute. This diagnosis is threat to bodily function.
-MRI 12/26/23: Restricted diffusion within the lateral right frontal lobe and the right insula consistent with acute infarction. There is linear FLAIR hyperintense signal with a small focus of blooming artifact along the superior aspect of the
right sylvian fissure which is suggestive of slow flow and possible distal MCA thrombus. Sequelae of moderate small vessel ischemic disease with small focus of consolidation along the superior left frontal lobe.
-has been taking his Eliquis per family. Now NPO- received ASA. Neuro on the case. Consider alternate anticoagulant (pradaxa) when okay for OAC.
AFIB: permanent
-rate controlled overall, but now off metoprolol due to being NPO. Can add IV metoprolol if needed.
-OAC issue as above- held for acute stroke
HFrEF:
-chronic
-Echo 10/02/23: LV is severely dilated. Mild concentric LVH. Mid to basal inferoseptal hypokinesis. LV EF is 44%. Enlarged RV size. Very severe biatrial enlargement. Mild- moderate eccentric MR. Aortic sclerosis without stenosis. Moderate TR.
Estimated PAP of 40-45 mmHg.
-weight is up from previous admit, but lungs clear, no edema. Denies SOB to me, and family reports he has not been SOB.
-on Lasix as OP, monitor volume status
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
-GDMT has been limited by BP's, renal function, UTIs
-on BB as OP
Abnormal troponin:
-1.1 peak
-denies any CP or SOB
-EKG stable
-suspect acute, non-ischemic myocardial injury in setting of acute illness with sepsis, BRIE
-echo to be done
Data Reviewed
-
EKG: Tracing Personally Visualized and interpreted (AFIB with PVC's)
Radiology: Report Reviewed by me
Medical Tests (Nuc Med, Echo etc): Report Reviewed by me (Echo 10/02/23: LV is severely dilated. Mild concentric LVH. Mid to basal inferoseptal hypokinesis. LV EF is 44%. Enlarged RV size. Very severe biatrial enlargement. Mild- moderate eccentric
MR. Aortic sclerosis without stenosis. Moderate TR. Estimated PAP of 40-45 mmHg.)
Labs: Labs Reviewed by me
[2023-12-27 09:37] LABS: Blood Urea Nitrogen 61 mg/dl (9-20); Carbon Dioxide 21 mmol/L (22-30); Chloride 112 mmol/L (98-107); Estimated Creatinine Clearance 24 ml/min; Glucose 117 mg/dl (70-99); Potassium 3.5 mmol/L (3.5-5.1); Sodium 148 mmol/L (135-145); eGFR 26.64
--- NOTE | 2023-12-27 12:02 | W.PN.NEURO.1 ---
Addendum entered and electronically signed by Acacia Ghosh MD 12/28/23 12:54:
please disregard recommendations regarding systemic AC until IE ruled out.
Original Note:
Today's Communication / Plan
-
.
Subjective/Objective
Subjective Data
Date of Service: December 27, 2023
Neurology Follow Up Note.
24h events: lethargic, afebrile, normotensive
Brain MRI wo yani-restricted diffusion within the lateral right frontal lobe and the right insula consistent with acute infarction. There is linear FLAIR hyperintense signal with a small focus of blooming artifact along the superior aspect of the
right sylvian fissure which is suggestive of slow flow and possible distal MCA thrombus.
CTA head/neck(12/26/2023) no evidence of significant stenosis.
PMH: Paroxysmal A-fib, HTN, DLP, DM, CKD, YANI, BPH, obstructive uropathy
SH: , non-smoker
All:NKDA
ROS: Unable due to encephalopathy
General: Well developed. In no acute distress.
Cardio: Regular rate. Extremities are without cyanosis or edema.
Neuro: Mental Status: Lethargic awakens to tactile stimulation. Follows simple requests intermittently. Attends briefly. Oriented to name only. Poor attention. L hemineglect has improved.
Cranial Nerves: Orthophoric primary gaze, pupils are equally round, surgical . No nystagmus. Left facial weakness. Severe dysarthria
Motor: drifts both arms to the bed symmetrically, moved Bl legs within bedplane
Sensory: Limited exam due to poor attention
Coordination: No tremors myoclonic movement
Gait: deferred
Assessment and Plan:
I. 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 Rule out IE
II. PA A-Fib
III. Encephalopathy(metabolic(hypernatremia), vascular)
-Avoid cerebral hypoperfusion
-Aspiration precautions
-SHWETHA
-Continue ASA 81 mg QD
-restart Eliquis on 12/29/2023
-Case was discussed with patient's family.
I personally reviewed all radiology and labs along with past medical records pertinent to current medical problems. Total time spent in patient care is 40 minutes.
Thank you for allowing us to participate in the care of this patient. We will continue to follow. Please do not hesitate to contact us with any questions or concerns.
Objective Data
Vital Signs
Temp Pulse Resp BP Pulse Ox
36.4 C 90 20 147/81 97
12/27/23 11:43 12/27/23 11:43 12/27/23 11:43 12/27/23 11:43 12/27/23 11:43
Lab Results
12/27/23 07:18
12/27/23 07:18
PT 20.9 Sec (11.4-14.6) H 12/26/23 12:45
INR 1.78 12/26/23 12:45
APTT 40.9 Sec (23.4-35.0) H 12/26/23 12:45
Sodium 148 mmol/L (135-145) H 12/27/23 07:18
Potassium 3.5 mmol/L (3.5-5.1) 12/27/23 07:18
BUN 61 mg/dl (9-20) H 12/27/23 07:18
Glucose 117 mg/dl (70-99) H 12/27/23 07:18
Calcium 9.0 mg/dl (8.4-10.2) 12/27/23 07:18
Vitamin B12 457 pg/ml (239-931) 12/26/23 07:14
Patient Allergies
No Known Allergies Allergy (Verified 04/14/23 21:35)
Vital Signs and Labs
-
Vital Signs and Labs:
Vital Signs
Temp Pulse Resp BP Pulse Ox
36.4 C 90 20 147/81 97
12/27/23 11:43 12/27/23 11:43 12/27/23 11:43 12/27/23 11:43 12/27/23 11:43
Lab Results
12/27/23 07:18
12/27/23 07:18
PT 20.9 Sec (11.4-14.6) H 12/26/23 12:45
INR 1.78 12/26/23 12:45
APTT 40.9 Sec (23.4-35.0) H 12/26/23 12:45
Sodium 148 mmol/L (135-145) H 12/27/23 07:18
Potassium 3.5 mmol/L (3.5-5.1) 12/27/23 07:18
BUN 61 mg/dl (9-20) H 12/27/23 07:18
Glucose 117 mg/dl (70-99) H 12/27/23 07:18
Calcium 9.0 mg/dl (8.4-10.2) 12/27/23 07:18
Vitamin B12 457 pg/ml (239-931) 12/26/23 07:14
Medications
-
Medications:
Generic Name Dose Route Start Last Admin
Trade Name Freq PRN Reason Stop Dose Admin
Acetaminophen 650 mg 12/25/23 19:42
Acetaminophen 325 Mg Tablet PO 01/22/24 19:41
Q4HPRN PRN
mild pain or temp >/= 100
Albuterol Sulfate 2.5 mg 12/25/23 19:42
Albuterol Nebs 2.5 Mg/3 Ml Ampul INH
R Q6HPRN PRN
sob
Protocol
Aspirin 300 mg 12/27/23 08:00 12/27/23 07:49
Aspirin 300 Mg Rectal Suppository RECTAL 01/24/24 07:59 300 mg
DAILY ARCADIO Administration
Atorvastatin Calcium 10 mg 12/26/23 18:00 12/26/23 17:09
Atorvastatin (Lipitor) 10 Mg Tablet PO 01/23/24 17:59 Not Given
QPM ARCADIO
Bisacodyl 10 mg 12/25/23 19:42
Bisacodyl 10 Mg Rectal Suppository RECTAL 01/22/24 19:41
[id number] PRN
constipation
Ceftriaxone Sodium 2,000 mg 12/26/23 16:00 12/26/23 17:08
Ceftriaxone 2,000 Mg/20 Ml Vial IV 2,000 mg
Q24H ARCADIO Administration
Dextrose 12.5 grams 12/25/23 20:16
Dextrose 50% (0.5 Grams/Ml) 50 Ml Syringe IV 01/22/24 20:15
[id number] PRN
hypoglycemia
Protocol
Diclofenac Sodium 2 gram 12/25/23 19:42
Diclofenac 1% Topical Gel 100 Gram Tube TOPICAL 01/22/24 19:41
Q8HPRN PRN
lower back
Protocol
Finasteride 5 mg 12/26/23 08:00 12/27/23 08:18
Finasteride 5 Mg Tablet PO 01/23/24 07:59 Not Given
DAILY ARCADIO
Furosemide 20 mg 12/26/23 08:00 12/27/23 08:18
Furosemide 20 Mg Tablet PO 01/23/24 07:59 Not Given
DAILY ARCADIO
Gabapentin 100 mg 12/25/23 22:00 12/26/23 22:24
Gabapentin 100 Mg Capsule PO 01/22/24 21:59 Not Given
HS ARCADIO
Glucagon 1 mg 12/25/23 20:16
Glucagon 1 Mg Vial IM 01/22/24 20:15
PRN PRN
hypoglycemia
Protocol
Sodium Chloride 1,000 mls @ 60 mls/hr 12/25/23 19:42 12/26/23 21:59
Nss IV 1,000 mls
.[id number] ARCADIO Administration
Insulin Aspart 0 units 12/26/23 18:00 12/27/23 06:29
Insulin Aspart Low Resistance 300 Units/3 Ml Pen.Injctr SC 01/23/24 17:59 Not Given
Q6 ARCADIO
Protocol
Latanoprost 0 drop 12/25/23 22:00 12/26/23 22:36
Latanoprost 0.005% (Ophthalmic Solution) 2.5 Ml Bottle LEFT EYE 01/22/24 21:59 1 drop
HS ARCADIO Administration
Loratadine 10 mg 12/25/23 22:00 12/25/23 20:53
Loratadine 10 Mg Tablet PO 01/22/24 21:59 10 mg
Q48H ARCADIO Administration
Magnesium Oxide 250 mg 12/26/23 12:00 12/26/23 13:13
Magnesium Oxide 500 Mg Tablet PO 01/23/24 11:59 Not Given
NOON ARCADIO
Metoprolol Succinate 12.5 mg 12/26/23 08:00 12/27/23 08:18
Metoprolol 12.5 Mg Extended Release Dose (1/2 Of 25 Mg Xl Tablet) PO 01/23/24 07:59 Not Given
DAILY ARCADIO
Metoprolol Tartrate 5 mg 12/27/23 11:11
Metoprolol 5 Mg/5 Ml Vial IV 01/24/24 11:10
Q6HPRN PRN
sustained HR >120 BPM
Midodrine 2.5 mg 12/25/23 19:42
Midodrine 2.5 Mg Tablet PO 01/22/24 19:41
BIDPRN PRN
if BP<110
Oxycodone/Acetaminophen 1 tablet 12/25/23 20:36
Oxycodone 5 Mg/Apap 325 Mg (Percocet) PO 01/08/24 20:34
Q6HPRN PRN
mild pain
Oxycodone/Acetaminophen 2 tablet 12/25/23 20:36
Oxycodone 5 Mg/Apap 325 Mg (Percocet) PO 01/08/24 20:34
Q6HPRN PRN
moderate pain
Pantoprazole Sodium 40 mg 12/26/23 08:00 12/27/23 08:18
Pantoprazole 40 Mg Delayed Release Tablet PO 01/23/24 07:59 Not Given
DAILY ARCADIO
Polyethylene Glycol 17 grams 12/25/23 19:42
Polyethylene Glycol Powder 17 Grams Packet PO 01/22/24 19:41
DAILYPRN PRN
constipation
Psyllium Hydrophilic Mucilloid 1 packet 12/26/23 08:00 12/27/23 08:18
Psyllium Packet PO 01/23/24 07:59 Not Given
DAILY ARCADIO
Senna/Docusate Sodium 1 tablet 12/25/23 19:42
Docusate W/Senna (Lea-Colace) Tablet PO 01/22/24 19:41
BIDPRN PRN
constipation
Sertraline HCl 50 mg 12/26/23 08:00 12/27/23 08:19
Sertraline 50 Mg Tablet PO 01/23/24 07:59 Not Given
DAILY ARCADIO
Sitagliptin Phosphate 25 mg 12/26/23 08:00 12/27/23 08:18
Sitagliptin (Januvia) 50 Mg Tablet PO 01/23/24 07:59 Not Given
DAILY ARCADIO
Sodium Chloride 0 flush 12/25/23 20:00
Sodium Chloride 0.9% (Flush) Syringe IV 01/22/24 19:59
PER PROTOCOL ARCADIO
Sterile Water 20 ml 12/26/23 14:45 12/26/23 17:08
Sterile Water For Injection 20 Ml Vial IV 01/23/24 14:44 20 ml
Q24H ARCADIO Administration
Vitamin B Complex/Vitamin C 1 caplet 12/26/23 08:00 12/27/23 08:18
Vitamin B Complex With Vitamin C Caplet PO 01/23/24 07:59 Not Given
DAILY ARCADIO
Home Medications
-
Home Medications
atorvastatin 40 mg tablet 40 mg PO QPM 10/05/20
omeprazole 20 mg capsule,delayed release 20 mg PO DAILY Gastrointestinal issue 10/05/20
fenofibrate 54 mg tablet 54 mg PO DAILY High cholesterol 08/04/21
apixaban 2.5 mg tablet (Eliquis) 2.5 mg PO BID #60 tabs 08/06/21
acetaminophen 500 mg tablet (Tylenol Extra Strength) 1,000 mg PO Q6HPRN PRN mild Pain 04/24/22
sertraline 50 mg tablet 50 mg PO DAILY Mental Health/Anxiety 04/24/22
sitagliptin phosphate 50 mg tablet (Januvia) 50 mg PO DAILY Diabetes 08/20/22
latanoprost 0.005 % eye drops 1 drp LEFT EYE HS Eye Condition 09/30/23
psyllium 1 packet PO DAILY Constipation 09/30/23
silodosin 8 mg capsule 8 mg PO QPM Urinary Issue 09/30/23
vitamin B complex 1 tab PO DAILY Supplement 09/30/23
finasteride 5 mg tablet 5 mg PO DAILY Urinary issue 1 month #30 tabs 10/06/23
gabapentin 100 mg capsule 100 mg PO HS Neurological Condition 1 month #30 caps 10/06/23
albuterol sulfate 2.5 mg/3 mL (0.083 %) solution for nebulization 2.5 mg inhalation R Q6HPRN PRN sob 12/25/23
atorvastatin 10 mg tablet 10 mg PO QPM 12/25/23
cefdinir 300 mg capsule 300 mg PO Q12H Urinary issue 12/25/23
desloratadine 5 mg tablet 5 mg PO DAILY 12/25/23
diclofenac sodium 1 % topical gel 2 g topical Q8HPRN PRN lower back 12/25/23
fluticasone propionate 50 mcg/actuation nasal spray,suspension 1 spray intranasal HS 12/25/23
furosemide 20 mg tablet 20 mg PO DAILY 12/25/23
loratadine 10 mg tablet (Claritin) 10 mg PO HS 12/25/23
magnesium oxide 250 mg PO NOON 12/25/23
metoprolol succinate 25 mg tablet,extended release 24 hr (Toprol XL) 12.5 mg PO DAILY Heart disease/condition 12/25/23
midodrine 2.5 mg tablet 2.5 mg PO BIDPRN PRN if BP<110 12/25/23
[2023-12-27 12:03] LABS: Glucose - Point of Care 114 mg/dl (70-99)
[2023-12-27] MEDS: NSS 1000 IV (13:17)
--- NOTE | 2023-12-27 14:30 | CM ---
Patient seen at bedside with physicians. CM will continue to follow for discharge planning needs.
Plan;home with VN vs SNF vs hospice pending medical treatment plan
--- NOTE | 2023-12-27 14:40 | PTOTSP ---
Speech Language Pathology
Pt also seen for dysphagia tx. and 2 daughters at bedside. P.O. trials of ice chips (x1), 2ccs of thin water in pipetted straw (x1), and 1/2 tsp of puree (x1) provided. Pt actively accepted trials with immediate oral manipulation, which is
an improvement from 12/25. However, absent swallow noted with ice chip. Swallow initiated with thin water and puree. With thin liquids, slight wet vocal quality noted. Pt with weak cued cough/throat clear. With puree, swallow was significantly
audible, suspect incoordination. Delayed prolonged wet coughing noted following puree. Sp02 95%.
Daughter present who reported pt would cough similarly with meals at baseline, so she is questioning chronic component to dysphagia. Discussed option of VSE tomorrow, although aspiration considered highly likely. Family to discuss and notify MD.
Recommend:
(1) Strict NPO
(2) Not appropriate for Aspiration Risk Hydration Protocol (ARHP)
(3) Oral care 4x/day with suctioning as needed
(4) Non-oral meds
(5) [employer] to continue to follow for dysphagia, dysarthria, and cognitive-linguistic tx
[2023-12-27] MEDS: ANCEF 10 IV (15:26)
[2023-12-27] MEDS: LOPRESSOR 5 MG IV ×2 (16:08→23:07)
[2023-12-27 17:35] LABS: Glucose - Point of Care 106 mg/dl (70-99)
--- NOTE | 2023-12-27 18:17 | W.PN.UPDATE ---
Update Note
Progress Note Update
Called daughter Kristen and updated on pts progress. Patient has noted noted that the family has decided to proceed with video swallow in order to make decisions about when to proceed with hospice. I also went to see patient tonight, patient able
to move left extremities better, improving speech. I explained to daughter that we will try video swallow tomorrow and if he passes, we will try simple oral feeding depending on speech and swallow recs.
--- NOTE | 2023-12-27 18:33 | PTCARENOTE ---
Patient more alert as day went on, speech still slow with some aphasia. Left arm and leg movement slightly improved. Stated he 'wanted water '
For video swallow tomorrow .
[2023-12-27] MEDS: CLARITIN PO (21:14)
[2023-12-27] MEDS: NEURONTIN PO (21:14)
[2023-12-27] MEDS: XALATAN OPHTHALMIC SOLUTION 1 DROP LEFT EYE (21:14)
[2023-12-28] VITALS (8 sets, daily range): BP systolic 135–153; BP diastolic 80–91; PULSE 111; BMI 26.0
[2023-12-28 00:23] LABS: Glucose - Point of Care 121 mg/dl (70-99)
[2023-12-28] MEDS: NOVOLOG FLEXPEN-LOW RESISTANCE SC ×4 (00:31→17:24)
[2023-12-28] MEDS: ANCEF 10 IV ×2 (01:36→13:31)
[2023-12-28] MEDS: LOPRESSOR 5 MG IV ×4 (05:20→23:26)
[2023-12-28 05:33] LABS: Glucose - Point of Care 107 mg/dl (70-99)
[2023-12-28] MEDS: NSS 1000 IV (05:35)
--- NOTE | 2023-12-28 07:21 | W.PN.HOSP.TC ---
Addendum entered and electronically signed by Chinyere Rose MD 12/28/23 14:02:
I saw and evaluated the patient independently. I reviewed the resident�s note and agree with findings and plan as documented by Dr. Foster.
GENERAL: chronically ill appearing male in no apparent distress--garbled speech
HEENT: NC/AT -- no O2 requirements--dry mucous membranes--corner of left mouth with droop
HEART: irreg irreg
LUNGS : clear to auscultation bilaterally
ABDOM: soft, nontender, nondistended, + bowel sounds
EXT: no cyanosis, clubbing, or edema
NEUROLOGIC: improved movement of left side
: donovan with clear urine
acute CVA--pt had rapid response for stroke alert on 12/26/23 for left sided flaccid (new) and left facial droop (not new) along with minimal responsiveness--had STAT head CT without acute findings, had STAT CTA without large vessel occlusion--got
urgent MRI--positive for acute right lateral frontal lobe acute infarct with small distal MCA thrombus (not enough to do thrombectomy)--pt not candidate for TNK lytic therapy due to Eliquis (stopped now, can restart on 12/28 as per neuro) and
started on asa--no seizures noted on EEG but did get keppra loaded--apprec neurology--failed speech eval with strict NPO, failed VSE as well, with no PEG desired, hospice appropriate, for d/c home Sat on hospice
Sepsis (POA, likely early by criteria)-�likely secondary to urinary retention with UTI/pyelo based on CT scan findings--has had donovan before AND Klebsiella pneumonia UTI with bacteremia---cont IVF at 60 ml/hr--Unasyn changed to ceftriaxone due to
lowering seizure threshold--urine and blood cultures positive for Klebsiella pneumoniae again--follow blood cultures to clearance--cont donovan--apprec urology, no further voiding trials, donovan to stay permanently--cont proscar--neuro raised concern
for septic emboli and endocarditis....await echo
History of BPH with urinary retention and bilateral hydronephrosis--has had donovan in past--was at urologist office last Monday and was determined that he was emptying his bladder--currently retaining with donovan cath replaced--no further plans to do
TOV
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
Essential hypertension--Continue Toprol with holding parameters.
Paroxysmal A-fib--Eliquis stopped
Non ischemic myocardial injury secondary to sepsis and RV strain--trend
Chronic HFmrEF---Continue GDMT with Lasix, Toprol�limited by renal function and hypotension--had ECHO recently, no need to repeat
NIDDM type II--Recent A1c 6.9---Januvia reduced to 25 mg for poor renal function--Will cover with insulin sliding scale with Accu-Cheks---Diabetic diet.
DVT PPx--Eliquis stopped
CODE STATUS--DNR
Original Note:
Today's Communication/Plan
-
Video swallow today
Change IV fluid to D5W
Monitor BMP
Continue antibiotics
Follow blood cultures and sensitivity
Assessment / Plan
Assessment / Plan
Impression: 88-year-old male with PMH of BPH on finasteride, paroxysmal A-fib on Eliquis, CKD stage IIIb (now stage IV), who presented to ED on 12/24 with dizziness, confusion that started in the morning [employer]. Was recently discharged from this
hospital for urosepsis secondary to obstructive uropathy from enlarged prostate. He was also observed to have a left facial droop which family confirmed has been there due to remote TIA.
Assessment/plan:
#Acute right MCA stroke-confirmed on urgent MRI.
-Suspect embolic stroke from Eliquis failure, septic emboli unlikely given echo results.
-Echo 12/26 with new increased PASP 70 mmHg.
-Patient not candidate for TNK lytic therapy while on Eliquis, from was not enough for thrombectomy.
-Continue aspirin.
-Failed video swallow today, failed speech eval x2.
-Strict n.p.o.
-Continue Keppra
-Neurology appreciated.
-Long discussion with family with updated findings, family accepted patient to be DNR, declined feeding tubes.
-Family agreed to hospice.
#Sepsis�secondary to recurrent urinary retention with UTI based on CT Abd/Pel findings 12/24.
-Suspect neurogenic bladder vs worsening BPH.
-Blood cultures 12/24 positive in 2 of 2 sets of blood cultures; urine culture with Klebsiella pneumoniae.
-Continue cefazolin 2g Q 12H.
-Follow blood culture sensitivities.
-Patient will likely need indwelling Donovan catheter we will forward per urology.
-Continue tamsulosin.
-Urology appreciated.
#Acute anxiety.
-Ativan as needed
#Acute hypernatremia
-Sodium level 154 with NSS.
-Discontinued NSS, known D5W at 80 cc/h
-Nephrology consulted.
-Monitor BMP.
# Nonischemic myocardial injury.
-Suspect secondary to sepsis and RV strain.
-Troponin peaked at 1.1
#Mild leukocytosis.
-Resolved.
-Continue antibiotics.
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
-Improved creatinine 2.3 (baseline 1.4).
-Continue IV fluid.
-Monitor and follow renal function/volume status.
#Essential hypertension
-Continue Toprol 5 mg IV Q6H with holding parameters.
#Paroxysmal A-fib
-Continue Toprol, Eliquis discontinued.
-Monitor on telemetry.
#Chronic HFmrEF.
-Continue GDMT with Lasix, Toprol�limited by renal function and hypotension.
#NIDDM type II
-Recent A1c 6.9.
-Febuvia reduced to 25 mg for poor renal function
-Will cover with insulin sliding scale with Accu-Cheks.
-Diabetic diet.
DVT PPx-Eliquis
CODE STATUS-DNR�reached after talking to family/POA
Data:
Echocardiography 12/27/2023:
Moderately reduced left ventricular systolic function. Left ventricular ejection fraction is 40-45%. Basal to mid inferoseptal/inferior/inferolateral hypokinesis.
Mild/moderate eccentric mitral regurgitation. Trileaflet aortic valve. LCC is thickened, and similar in appearance to prior studies. Aortic sclerosis without stenosis. Trace aortic regurgitation.
Moderate tricuspid regurgitation. Severely elevated PASP. Estimated pulmonary artery pressure of 70 mmHg assuming a right atrial pressure of 8 mmHg.
Ectatic proximal ascending aorta: 3.9 cm.
Compared to 10/02/23: PASP has increased from 45 mmHg to 70 mmHg. Other findings stable.
CT abdomen/pelvis 12/25/2023:
No CT evidence for nephroureterolithiasis or hydronephrosis. Left perinephric inflammatory fat stranding may be secondary to an ascending urinary tract infection/pyelonephritis in the appropriate clinical setting. Collapsed urinary bladder with a
Donovan catheter in place.
CT head without contrast 12/26/2023: No acute intracranial abnormality
CT head and neck 12/26/2023:
Atherosclerosis of the carotid arterial system bilaterally with no findings to suggest hemodynamically significant stenosis of the internal carotid arteries bilaterally.
No findings to suggest internal carotid artery or vertebral artery dissection bilaterally.
No evidence of significant proximal intracranial arterial vessel cut off or stenosis.
MRI brain without contrast 12/26/2023:
Restricted diffusion within the lateral right frontal lobe and the right insula consistent with acute infarction. There is linear FLAIR hyperintense signal with a small focus of blooming artifact along the superior aspect of the right sylvian
fissure which is suggestive of slow flow and possible distal MCA thrombus.
Sequelae of moderate small vessel ischemic disease with small focus of consolidation along the superior left frontal lobe.
EEG 12/26/2023:
This is an abnormal awake and drowsy EEG due to continuos right hemispheric slowing indicative of structural lesion in the above region and generalized slowing consistent with encephalopathy, not specific in terms of etiology. No epileptiform
activity was seen.�
Anticipated Discharge: > 48 hours
Subjective/Interval History
-
Date of Service: December 28, 2023
Patient was seen and examined by me. He is able to move left extremities better today, quite incoherent but still sounds confused subjectively. Patient woke up to his name and immediately looked at the clock and told me what the time was without
asking. He continued to ask for water but denies any chest pain or abdominal pain.
Objective Data
-
Labs:
Laboratory Results
12/28/23
06:39
WBC Pending
Hgb Pending
Hct Pending
Plt Count Pending
Sodium Pending
Potassium Pending
Chloride Pending
Carbon Dioxide Pending
BUN Pending
Creatinine Pending
Glucose Pending
Calcium Pending
Vital Signs:
Vital Signs
Temp Pulse Resp BP Pulse Ox
98.0 F 86 22 153/95 95
12/28/23 03:13 12/28/23 05:20 12/28/23 03:13 12/28/23 05:20 12/28/23 03:13
I&O
12/27/23 12/28/23 12/29/23
06:59 06:59 06:59
Intake Total 900 / 900 1460 / 1460
Output Total 1300 / 1300 1380 / 1380
Balance -400 / -400 80 / 80
Review of Systems
-
Unable to obtain full review of systems at this time due to: Acuity
History Source: Patient
All other systems: Not reviewed unless documented
Cardiac: Reports No Symptoms; Denies Chest Pain
Abdomen/GI: Reports No Symptoms; Denies Abdominal Pain or Nausea
Skin: Reports No Symptoms
Physical Exam
-
HEENT: Normocephalic and Atraumatic
Respiratory: Clear to Auscultation; Negative Wheezes, Rhonchi or Crackles
Cardiac: S1/S2 and Irregular Rhythm; Negative Murmur
GI: Soft, Nontender, Nondistended and Normal Bowel Sounds
Genito-urinary: Turbid Urine and Donovan
Musculoskeletal: No Clubbing, No Cyanosis and No Edema
Skin: Warm and Dry
Neuro: Facial Droop (Left) and Other (Sleepy)
Psych: Calm and Confused
Data Reviewed
-
CT Scan: Image personally visualized and interpreted, Report Reviewed by me and Discussed with Physician
MRI: Image personally visualized and interpreted, Report Reviewed by me and Discussed with Physician
Labs: Labs Reviewed by me and Discussed with Physician
Old Records: Reviewed
[2023-12-28 08:00] LABS: Hemoglobin 10.4 g/dL (13.0-18.0); Mean Corp Hgb Conc. 31.5 g/dL (33.0-37.0); Mean Corpuscular Hgb 30.1 pg (27.0-31.0); Mean Corpuscular Volume 95.7 fL (80.0-94.0); Mean Platelet Volume 10.5 fL (7.4-10.4); Platelet Count 148 10^3/uL (130-400); Red Blood Cell Count 3.45 10^6/uL (4.70-6.10); Red Cell Dist. Width 14.9 % (11.5-14.5)
--- NOTE | 2023-12-28 08:27 | W.PN.CD ---
Today's Communication / Plan
-
Anticoagulation on hold.
Resume anticoagulation when safe from a neuro standpoint.
Due to some fluctuations in renal function would favor changing from Eliquis to Xarelto 15 mg a day when patient is safe to go back on anticoagulation.
No additional plan for SHWETHA based on prior discussion between Dr. Boogie patient and family.
Impression / Plan
-
88 yo male with PMH of permanent A fib on eliquis, chronic HFrEF, prior CVA 2020 admitted with UTI and bacteremia. Then had recurrent CVA while inpatient. Exam with irregular rhythm, II/ systolic murmur at apex, 1+ LE edema. TnI peak 1.1. EKG:
A fib, iRBBB, PVC's.
CVA. He reports no missed doses of eliquis.
-MRI 12/26/23: Restricted diffusion within the lateral right frontal lobe and the right insula consistent with acute infarction. There is linear FLAIR hyperintense signal with a small focus of blooming artifact along the superior aspect of the right
sylvian fissure which is suggestive of slow flow and possible distal MCA thrombus. Sequelae of moderate small vessel ischemic disease with small focus of consolidation along the superior left frontal lobe.
Possibility of transitioning the Pradaxa had been discussed but based on some of the fluctuation in his creatinine would recommend change to Xarelto 15 mg a day since patient has been consistently with creatinine clearance less than 50 Eliquis is
currently on hold in setting of acute CVA.
-Resume anticoagulation when safe from a neuro standpoint.
-Patient had transthoracic echo. No plans for SHWETHA based on patient's previous discussion with patient and family as outlined by Dr. Boogie's note
-Transthoracic echo 12/27/2023 moderately reduced left ventricular function ejection fraction 40-45 basal to mid inferoseptal/inferior/inferolateral hypokinesis thickened aortic valve/aortic sclerosis without stenosis no change from previous echo.
Moderate tricuspid regurgitation pulmonary hypertension PA pressure 70 mmHg
Bacteremia, UTI. Abx per primary team. As noted there was a discussion by Dr. Boogie related topic of SHWETHA with patient, family, daughter Chinyere Flores ([phone]). Does not appear to be good candidate for SHWETHA. They also do not want invasive
procedures, anesthesia.
-Antibiotics as directed by ID and primary team
Elevated troponin. Suspect acute non-ischemic myocardial injury in setting of UTI, and CVA.
-Continue supportive treatment
AFIB: permanent
-rate controlled
-OAC issue as above- held for acute stroke.
HFrEF:
-Ejection fraction 40 to 45% by echo 12/27/2023
-chronic
-Respiratory status stable
- GDMT has been limited by BP's, renal function, UTIs
Physical Exam
Vital Signs/Labs
Vital Signs
Temp Pulse Resp BP Pulse Ox
98.1 F 86 18 145/86 97
12/28/23 07:46 12/28/23 07:46 12/28/23 07:46 12/28/23 07:46 12/28/23 07:46
12/27/23 12/28/23 12/29/23
06:59 06:59 06:59
Actual Weight 88.11 kg 86.806 kg
12/28/23 06:39
PT 20.9 Sec (11.4-14.6) H 12/26/23 12:45
INR 1.78 12/26/23 12:45
APTT 40.9 Sec (23.4-35.0) H 12/26/23 12:45
Magnesium 1.7 mg/dl (1.6-2.3) 12/26/23 12:45
TSH 1.36 uIU/ml (0.47-4.68) 12/26/23 07:14
LAB Results
12/26/23 12/26/23 12/26/23
12:45 13:37 21:35
Troponin I Cancelled 1.100 H* 0.895 H*
Physical Exam
Constitutional: No acute distress
Cardiovascular: Rhythm/rate is irregular
Respiratory: Wheeze Absent and Rhonchi Absent
GI: Soft
Neuro/Psych: Alert
Data Reviewed
-
Date of Service: December 28, 2023
Medical Decision Making: Reviewed Test Results
Medical Tests (PFT, Pathology etc): Report Reviewed by me
Labs: Labs Reviewed by me
--- NOTE | 2023-12-28 08:28 | W.PN.URO.CBU ---
Today's Communication / Plan
-
outpt f/u
if palliative care/hospice chosed- would consider hold of eliquis to minimize risk of hematuria in this high risk patient
Assessment / Plan
-
urinary retention
UTI/bacteremia
spoke with yesterday
at this point- pt will need to continue donovan indefinitely
overall outlook poor- swallow study and goals of care being reviewed
treat UTI
continue proscar and stop alpha dennis
outpt f/u in 4 weeks to change donovan
Diagnosis
-
Date of Service: December 28, 2023
-
Patient Diagnosis:
urinary retention
urosepsis
Subjective
-
pt somnolent
urine lear
Objective
-
Vital Signs
Temp Pulse Resp BP Pulse Ox
98.1 F 86 18 145/86 97
12/28/23 07:46 12/28/23 07:46 12/28/23 07:46 12/28/23 07:46 12/28/23 07:46
Intake and Output
12/27/23 12/28/23 12/29/23
06:59 06:59 06:59
Intake Total 900 / 900 1460 / 1460
Output Total 1300 / 1300 1380 / 1380
Balance -400 / -400 80 / 80
Intake:
Oral fluids 240 / 240
IV fluids (Total) 600 / 600 1440 / 1440
IV piggybacks 60 / 60 20 / 20
Output:
Urine, Donovan 1300 / 1300 1380 / 1380
Laboratory Results
12/28/23 06:39
Review of Systems
-
Unable to obtain full review of systems at this time due to: Patient Non-verbal
Physical Exam
-
General - no acute distress
Genitalia - donovan in place, urine clear
[2023-12-28 08:32] LABS: Blood Urea Nitrogen 52 mg/dl (9-20); Carbon Dioxide 22 mmol/L (22-30); Chloride 116 mmol/L (98-107); Estimated Creatinine Clearance 29 ml/min; Glucose 106 mg/dl (70-99); Potassium 3.5 mmol/L (3.5-5.1); Sodium 153 mmol/L (135-145); eGFR 33.51
[2023-12-28] MEDS: METAMUCIL, KONSYL PO (08:38)
[2023-12-28] MEDS: B COMPLEX w/VITAMIN C PO (08:38)
[2023-12-28] MEDS: PROSCAR PO (08:38)
[2023-12-28] MEDS: JANUVIA PO (08:38)
[2023-12-28] MEDS: LASIX PO (08:38)
[2023-12-28] MEDS: PROTONIX PO (08:39)
[2023-12-28] MEDS: ZOLOFT PO (08:39)
[2023-12-28] MEDS: ASPIRIN 300 MG RECTAL (09:04)
--- NOTE | 2023-12-28 09:15 | PTOTSP ---
Speech Language Pathology
VIDEOFLUOROSCOPIC SWALLOWING EXAMINATION (VSE) completed. Overall, mod-severe oral and profound pharyngeal dysphagia noted, largely nonfunctional. Unable to initiate swallow with 1st tsp of thin liquids. Able to initiate swallow with single cup
sip of thin liquids and tsp of mildly thick liquids. However, minimal passed into esophagus, with remainder sitting in pharynx or aspirating. Pt with weak ineffective cough in response to aspiration.
Pt is at an extremely high risk for aspiration and airway obstruction. If comfort feeds are to be considered, witnessing pt struggling may be distressing to family. However, pt frequently asking for water.
Recommend:
(1) Strict NPO
(2) Non-oral meds
(3) Oral care 4x/day with suctioning as needed
(4) Not appropriate for Aspiration Risk Hydration Protocol (ARHP)
(5) IT QUALITY ASSURANCE ANALYST to continue to follow pending POC
[2023-12-28] MEDS: D5W 1000 IV (10:22)
--- NOTE | 2023-12-28 11:09 | HOSPNOTE ---
Addendum entered by Margarita Lai RN 12/28/23 11:24:
Spoke with the daughter Chinyere Flores spouse asked me to speak with her. The family will discuss hospice today and if in agreement with hospice will get equipment ordered and transport the patient home on Monday if in agreement. Will await the family
to call me back.
Original Note:
Daughter called last evening and the family would like a video barium study. Will continue to follow and be available to make some decisions about goals.
--- NOTE | 2023-12-28 11:48 | W.CON.NEPH ---
Consultation
-
Date/Time Consultation Requested: 12/28/23 0900
Date/Time Consultation Performed: 12/28/23 1100
Requesting Provider: Dr Foster
Performing Provider: Dr Mayorga
Reason for Consultation: hypernatremia
Medical History
-
Chief Complaint: Retention
History of Present Illness:
This is an 88-year-old gentleman who has BPH on Proscar therapy, paroxysmal atrial fibrillation with anticoagulation on Eliquis, diabetes mellitus type 2 on oral medications alone. He came to the emergency room because of dizziness and confusion.
He had a recent admission for urosepsis. He had a Donovan catheter at that time though that was removed. At the time of admission Donovan catheter was placed. History level however has continued to rise now at 154. His oral intake has dropped
significantly. He failed a swallow study. He underwent MRI which showed acute right sided infarction. We are asked to assist manage of his hyponatremia. The family has already stated that they would not pursue PEG tube and would pursue hospice
if he was unable to safely take oral intake.
Past Medical History
Hypertension, BPH, hyperlipidemia, diabetes mellitus type II, ventral hernia, bowel resection, stroke, arrhythmia
Social History
Tobacco: Non-Smoker
Alcohol: None
Family History
Family History: Not Pertinent
Allergies / Home Medications
Allergy/AdvReac Type Severity Reaction Status Date / Time
No Known Allergies Allergy Verified 04/14/23 21:35
�Medication �Instructions �Recorded �Confirmed �Type
atorvastatin 40 mg tablet 40 mg PO QPM 10/05/20 12/25/23 History
omeprazole 20 mg capsule,delayed 20 mg PO DAILY Gastrointestinal 10/05/20 12/25/23 History
release issue
fenofibrate 54 mg tablet 54 mg PO DAILY High cholesterol 08/04/21 12/25/23 History
apixaban 2.5 mg tablet (Eliquis) 2.5 mg PO BID #60 tabs 08/06/21 12/25/23 Rx
acetaminophen 500 mg tablet 1,000 mg PO Q6HPRN PRN mild Pain 04/24/22 12/25/23 History
(Tylenol Extra Strength)
sertraline 50 mg tablet 50 mg PO DAILY Mental 04/24/22 12/25/23 History
Health/Anxiety
sitagliptin phosphate 50 mg tablet 50 mg PO DAILY Diabetes 08/20/22 12/25/23 History
(Januvia)
latanoprost 0.005 % eye drops 1 drp LEFT EYE HS Eye Condition 09/30/23 12/25/23 History
psyllium 1 packet PO DAILY Constipation 09/30/23 12/25/23 History
silodosin 8 mg capsule 8 mg PO QPM Urinary Issue 09/30/23 12/25/23 History
vitamin B complex 1 tab PO DAILY Supplement 09/30/23 12/25/23 History
finasteride 5 mg tablet 5 mg PO DAILY Urinary issue 1 10/06/23 12/25/23 Rx
month #30 tabs
gabapentin 100 mg capsule 100 mg PO HS Neurological 10/06/23 12/25/23 Rx
Condition 1 month #30 caps
albuterol sulfate 2.5 mg/3 mL 2.5 mg inhalation R Q6HPRN PRN sob 12/25/23 12/25/23 History
(0.083 %) solution for nebulization
atorvastatin 10 mg tablet 10 mg PO QPM 12/25/23 12/25/23 History
cefdinir 300 mg capsule 300 mg PO Q12H Urinary issue 12/25/23 12/25/23 History
desloratadine 5 mg tablet 5 mg PO DAILY 12/25/23 12/25/23 History
diclofenac sodium 1 % topical gel 2 g topical Q8HPRN PRN lower back 12/25/23 12/25/23 History
fluticasone propionate 50 1 spray intranasal HS 12/25/23 12/25/23 History
mcg/actuation nasal
spray,suspension
furosemide 20 mg tablet 20 mg PO DAILY 12/25/23 12/25/23 History
loratadine 10 mg tablet (Claritin) 10 mg PO HS 12/25/23 12/25/23 History
magnesium oxide 250 mg PO NOON 12/25/23 12/25/23 History
metoprolol succinate 25 mg 12.5 mg PO DAILY Heart 12/25/23 12/25/23 History
tablet,extended release 24 hr disease/condition
(Toprol XL)
midodrine 2.5 mg tablet 2.5 mg PO BIDPRN PRN if BP<110 12/25/23 12/25/23 History
Review of Systems
-
Thirsty more than hungry. No chest pain or shortness of breath
All other systems: Negative unless noted
Physical Exam
Vital Signs
Vital Signs
Temp Pulse Resp BP Pulse Ox
98.1 F 86 18 145/86 97
12/28/23 07:46 12/28/23 07:46 12/28/23 07:46 12/28/23 07:46 12/28/23 07:46
Lab Results
WBC 8.0 10^3/uL (4.8-10.8) 12/28/23 06:39
RBC 3.45 10^6/uL (4.70-6.10) L 12/28/23 06:39
Hgb 10.4 g/dL (13.0-18.0) L 12/28/23 06:39
Hct 33.0 % (39.0-52.0) L 12/28/23 06:39
Plt Count 148 10^3/uL (130-400) 12/28/23 06:39
Sodium 153 mmol/L (135-145) H 12/28/23 06:39
Potassium 3.5 mmol/L (3.5-5.1) 12/28/23 06:39
Chloride 116 mmol/L (98-107) H 12/28/23 06:39
Carbon Dioxide 22 mmol/L (22-30) 12/28/23 06:39
BUN 52 mg/dl (9-20) H 12/28/23 06:39
Creatinine 1.9 mg/dL (0.7-1.3) H 12/28/23 06:39
eGFR 33.51 12/28/23 06:39
Glucose 106 mg/dl (70-99) H 12/28/23 06:39
Calcium 9.0 mg/dl (8.4-10.2) 12/28/23 06:39
Albumin 4.1 g/dl (3.5-5.0) 12/25/23 14:31
Laboratory Tests
10/09/23 11/16/23
05:30 12:10
Hgb 11.8 L
Sodium 143
Brain MRI on 12/26/2023
IMPRESSION:
Restricted diffusion within the lateral right frontal lobe and the right insula consistent with acute infarction. There is linear FLAIR hyperintense signal with a small focus of blooming artifact along the superior aspect of the right sylvian
fissure which is suggestive of slow flow and possible distal MCA thrombus.
Sequelae of moderate small vessel ischemic disease with small focus of consolidation along the superior left frontal lobe.
Physical Exam
Patient is awake alert oriented and in no distress. Mood and affect were pleasant, insight and judgment were good. Pupils are equal round and reactive to light, extraocular movements are intact, sclera were anicteric. Hearing was normal, ears and
nose are intact. Oropharynx was dry. Neck was supple with trachea midline and no thyromegaly. Heart was regular rate and rhythm without rubs. Lower extremities without edema. Lungs were clear to auscultation bilaterally and with normal excursion.
Abdomen was soft, nontender, with normal active bowel sounds, and no hepatosplenomegaly. Skin was without rash and with normal turgor.
Data Reviewed
-
MRI: Report Reviewed by me
Medical Tests (Nuc Med, Echo etc): Image Personally Visualized and interpreted (EKG on 12/26/2023 by read shows atrial fibrillation with a Bell C, incomplete right bundle branch block, inferior Q-wave) and Report Reviewed by me (Echocardiogram on
11/17/2023 shows ejection fraction 40%)
Labs: Labs Reviewed by me
Old Records: Reviewed
Assessment/Plan
-
Assessment
Acute right-sided stroke
BPH, urinary retention
Hypertension
Hyponatremia
Diabetes mellitus type 2
Heart failure reduced ejection fraction
CKD 3a
BRIE
Plan
Current free water deficit around 4 L
D5W at 80 cc/h
Follow BMP
BRIE likely due to volume ablation
Await video swallow
Check urine studies
Donovan per urology
Family states that they would not accept a PEG
--- NOTE | 2023-12-28 12:15 | W.PN.NEURO.1 ---
Today's Communication / Plan
-
.
Subjective/Objective
Subjective Data
Date of Service: December 28, 2023
Neurology Follow Up Note.
24h events: No acute events overnight, continues to be hypernatremic, afebrile.
Labs: Na 148-153, Cr 2.3-1.9.
Blood, ua cx-Kebsilella pneumoniae.
Patient's family declined SHWETHA.
Brain MRI wo alexa(12/26/2023) -restricted diffusion within the lateral right frontal lobe and the right insula consistent with acute infarction. There is linear FLAIR hyperintense signal with a small focus of blooming artifact along the superior
aspect of the right sylvian fissure which is suggestive of slow flow and possible distal MCA thrombus.
CTA head/neck(12/26/2023) no evidence of significant stenosis.
PMH: Paroxysmal A-fib, HTN, DLP, DM, CKD, ALEXA, BPH, obstructive uropathy
SH: , non-smoker
All:NKDA
ROS: Negative for headache, change in vision
General: Well developed. In no acute distress.
Cardio: Regular rate. Extremities are without cyanosis or edema.
Neuro: Mental Status: Awake, oriented to name, place. Follows simple requests consistently.
Cranial Nerves: Orthophoric primary gaze, pupils are equally round, surgical . EOMI. Left hemianopsia. No nystagmus. Left facial weakness. Moderate dysarthria
Motor: L HP
Coordination: No tremors myoclonic movement
Gait: deferred
Assessment and Plan:
I. Acute right MCA stroke. Clinically improved. 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 Patients with IE are at risk for ICH from hemorrhagic transformation of an embolic stroke, rupture of a mycotic aneurysm, or septic arteritis with hemorrhage from vessel wall erosions.
The available limited data suggest that neither anticoagulation therapy nor Aspirin reduce the risk of embolism in patients with IE.
II. PA A-Fib
III. Encephalopathy(metabolic(hypernatremia), vascular)
-Avoid cerebral hypoperfusion
-Aspiration precautions
-Would not consider systemic anticoagulation and continue ASA 81 mg QD or 300 mg PRN since IE was not formally confirmed.
-DVT prophylaxis
-Please recall neurology service with any questions or concerns
I personally reviewed all radiology and labs along with past medical records pertinent to current medical problems. Total time spent in patient care is 40 minutes.
Objective Data
Vital Signs
Temp Pulse Resp BP Pulse Ox
36.7 C 83 20 142/84 97
12/28/23 11:20 12/28/23 11:20 12/28/23 11:20 12/28/23 11:20 12/28/23 11:20
Lab Results
12/28/23 06:39
12/28/23 06:39
PT 20.9 Sec (11.4-14.6) H 12/26/23 12:45
INR 1.78 12/26/23 12:45
APTT 40.9 Sec (23.4-35.0) H 12/26/23 12:45
Sodium 153 mmol/L (135-145) H 12/28/23 06:39
Potassium 3.5 mmol/L (3.5-5.1) 12/28/23 06:39
BUN 52 mg/dl (9-20) H 12/28/23 06:39
Glucose 106 mg/dl (70-99) H 12/28/23 06:39
Calcium 9.0 mg/dl (8.4-10.2) 12/28/23 06:39
Vitamin B12 457 pg/ml (239-931) 12/26/23 07:14
Patient Allergies
No Known Allergies Allergy (Verified 04/14/23 21:35)
[2023-12-28 12:16] LABS: Glucose - Point of Care 110 mg/dl (70-99)
[2023-12-28 14:07] LABS: Urine Sodium 75 mmol/L (30-90)
[2023-12-28 14:30] LABS: Osmolality Urine 501 mOsm/kg (300-900)
--- NOTE | 2023-12-28 15:42 | CM ---
Patient seen at bedside with physician. Patient family has decided to go home with home hospice on Monday per [facility] director hospice operations. CM will place out of hospital DNR on chart for resident/physician and ambulance transfer requested for monday am
at 11am. CM called to ext [phone] and spoke with transportation for acute care, [facility] who tentatively scheduled transport for 9:30am on Monday12/30/23. CM spoke with daughter Kristen to confirm number of steps to residence- no steps elevator in
the back to 2nd floor. CM will continue to follow for discharge planning needs.
Plan; home with hospice Monday12/30/23 to be home by 11am.
[2023-12-28 17:18] LABS: Glucose - Point of Care 118 mg/dl (70-99)
[2023-12-28] MEDS: XALATAN OPHTHALMIC SOLUTION 1 DROP LEFT EYE (21:02)
[2023-12-28] MEDS: NEURONTIN PO (21:02)
[2023-12-29 00:27] LABS: Glucose - Point of Care 134 mg/dl (70-99)
[2023-12-29] MEDS: NOVOLOG FLEXPEN-LOW RESISTANCE SC ×2 (01:05→06:05)
[2023-12-29] MEDS: ANCEF 10 IV ×2 (01:45→14:27)
[2023-12-29] MEDS: D5W 1000 IV ×3 (02:04→21:08)
[2023-12-29 03:00] VITALS: BP 166/93
[2023-12-29] MEDS: ATIVAN 0.25 MG IV ×3 (04:22→20:23)
[2023-12-29] MEDS: NSS (PRESERVATIVE FREE) 0.125 ML IV ×2 (04:24→14:29)
[2023-12-29] MEDS: LOPRESSOR 5 MG IV ×3 (04:27→18:04)
[2023-12-29 04:39] VITALS: BMI 25.8
[2023-12-29 06:00] LABS: Glucose - Point of Care 133 mg/dl (70-99)
--- NOTE | 2023-12-29 07:32 | W.PN.HOSP.TC ---
Addendum entered and electronically signed by Chinyere Rose MD 12/29/23 15:46:
I saw and evaluated the patient independently. I reviewed the resident�s note and agree with findings and plan as documented by Dr. Foster.
GENERAL: chronically ill appearing male in no apparent distress--garbled speech--tearful and crying in the chair
HEENT: NC/AT -- no O2 requirements--dry mucous membranes--corner of left mouth with droop
HEART: irreg irreg
LUNGS : clear to auscultation bilaterally
ABDOM: soft, nontender, nondistended, + bowel sounds
EXT: no cyanosis, clubbing, or edema
NEUROLOGIC: improved movement of left side
: donovan with clear urine
d/c home on hospice tomorrow
acute CVA--pt had rapid response for stroke alert on 12/26/23 for left sided flaccid (new) and left facial droop (not new) along with minimal responsiveness--had STAT head CT without acute findings, had STAT CTA without large vessel occlusion--got
urgent MRI--positive for acute right lateral frontal lobe acute infarct with small distal MCA thrombus (not enough to do thrombectomy)--pt not candidate for TNK lytic therapy due to Eliquis (stopped now, can restart on 12/28 as per neuro) and
started on asa--no seizures noted on EEG but did get keppra loaded--apprec neurology--failed speech eval with strict NPO, failed VSE as well, with no PEG desired, hospice appropriate, for d/c home Sat on hospice
Sepsis (POA, likely early by criteria)-�likely secondary to urinary retention with UTI/pyelo based on CT scan findings--has had donovan before AND Klebsiella pneumonia UTI with bacteremia---cont IVF at 60 ml/hr--Unasyn changed to ceftriaxone due to
lowering seizure threshold--urine and blood cultures positive for Klebsiella pneumoniae again--follow blood cultures to clearance--cont donovan--apprec urology, no further voiding trials, donovan to stay permanently--cont proscar--neuro raised concern
for septic emboli and endocarditis.... echo without
History of BPH with urinary retention and bilateral hydronephrosis--has had donovan in past--was at urologist office last Monday and was determined that he was emptying his bladder--currently retaining with donovan cath replaced--no further plans to do
TOV
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
Essential hypertension--Continue Toprol with holding parameters.
Paroxysmal A-fib--Eliquis stopped
Non ischemic myocardial injury secondary to sepsis and RV strain--trend
Chronic HFmrEF---Continue GDMT with Lasix, Toprol�limited by renal function and hypotension--had ECHO recently, no need to repeat
NIDDM type II--Recent A1c 6.9---Januvia reduced to 25 mg for poor renal function--Will cover with insulin sliding scale with Accu-Cheks---Diabetic diet.
DVT PPx--Eliquis stopped
CODE STATUS--DNR
Original Note:
Today's Communication/Plan
-
Transfer to [facility] [place]
K rider
Continue ABX
increase D5W rate to 100cc/h
follow BMP
Home tomorrow on Hospice.
Assessment / Plan
Assessment / Plan
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 Was recently discharged from this
hospital for urosepsis secondary to obstructive uropathy from enlarged prostate. He was also observed to have a left facial droop which family confirmed has been there due to remote TIA.
Assessment/plan:
#Acute right MCA stroke-confirmed on urgent MRI.
-Suspect embolic stroke from Eliquis failure, septic emboli unlikely given echo results.
-Patient not candidate for TNK lytic therapy while on Eliquis.Thrombectomy not indicated.
-Continue aspirin.
-Failed video swallow and Speech eval x 2.
-Strict NPO,Will transition to comfort feeds on discharge.
-Continue Keppra
#Sepsis�secondary to recurrent urinary retention with UTI based on CT Abd/Pel findings 12/24.
-Suspect neurogenic bladder vs worsening BPH.
-Blood and urine cultures 12/24 positive for Klebsiella pneumoniae.
-Continue cefazolin and follow culture sensitivities.
-Patient will likely need indwelling Donovan catheter we will forward per urology.
-Continue tamsulosin.
-Urology appreciated.
#Acute anxiety.
-Continue Ativan.
#Acute hypernatremia
-Sodium level stable, 154 with 5DW @ 80cc/h, increase rate to 100cc/hr and follow BMP.
-Nephrology appreciated.
#Acute hypokalemia
-K 134. Pt NPO.
-Will give K-rider with 5DW and follow BMP.
# Nonischemic myocardial injury.
-Suspect secondary to sepsis and RV strain.
-Troponin peaked at 1.1
#Mild leukocytosis.
-Resolved.
-Continue antibiotics.
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
-Improved creatinine 2.3 (baseline 1.4).
-Continue IV fluid.
-Monitor and follow renal function/volume status.
#Essential hypertension
-Continue Toprol 5 mg IV Q6H with holding parameters.
#Paroxysmal A-fib
-Continue Toprol, Eliquis discontinued.
-Transfer to [facility].
-Pt now Hospice.
#Chronic HFmrEF.
-Continue GDMT with Lasix, Toprol�limited by renal function and hypotension.
#NIDDM type II
-Recent A1c 6.9.
-Januvia reduced to 25 mg for poor renal function
-Will cover with insulin sliding scale with Accu-Cheks.
-Diabetic diet.
DVT PPx-Eliquis
CODE STATUS-DNR�reached after talking to family/POA
Data:
Echocardiography 12/27/2023:
Moderately reduced left ventricular systolic function. Left ventricular ejection fraction is 40-45%. Basal to mid inferoseptal/inferior/inferolateral hypokinesis.
Mild/moderate eccentric mitral regurgitation. Trileaflet aortic valve. LCC is thickened, and similar in appearance to prior studies. Aortic sclerosis without stenosis. Trace aortic regurgitation.
Moderate tricuspid regurgitation. Severely elevated PASP. Estimated pulmonary artery pressure of 70 mmHg assuming a right atrial pressure of 8 mmHg.
Ectatic proximal ascending aorta: 3.9 cm.
Compared to 10/02/23: PASP has increased from 45 mmHg to 70 mmHg. Other findings stable.
CT abdomen/pelvis 12/25/2023:
No CT evidence for nephroureterolithiasis or hydronephrosis. Left perinephric inflammatory fat stranding may be secondary to an ascending urinary tract infection/pyelonephritis in the appropriate clinical setting. Collapsed urinary bladder with a
Donovan catheter in place.
CT head without contrast 12/26/2023: No acute intracranial abnormality
CT head and neck 12/26/2023:
Atherosclerosis of the carotid arterial system bilaterally with no findings to suggest hemodynamically significant stenosis of the internal carotid arteries bilaterally.
No findings to suggest internal carotid artery or vertebral artery dissection bilaterally.
No evidence of significant proximal intracranial arterial vessel cut off or stenosis.
MRI brain without contrast 12/26/2023:
Restricted diffusion within the lateral right frontal lobe and the right insula consistent with acute infarction. There is linear FLAIR hyperintense signal with a small focus of blooming artifact along the superior aspect of the right sylvian
fissure which is suggestive of slow flow and possible distal MCA thrombus.
Sequelae of moderate small vessel ischemic disease with small focus of consolidation along the superior left frontal lobe.
EEG 12/26/2023:
This is an abnormal awake and drowsy EEG due to continuos right hemispheric slowing indicative of structural lesion in the above region and generalized slowing consistent with encephalopathy, not specific in terms of etiology. No epileptiform
activity was seen.�
Anticipated Discharge: Within 24 hours
Subjective/Interval History
-
Date of Service: December 29, 2023
I saw and evaluated this patient with at bedside. Patient was sitting comfortably on a chair in no acute cardiopulmonary distress, however was tearful and wants to go home. He does not report any chest pain, shortness of breath abdominal
pain, or headaches.
Objective Data
-
Labs:
Laboratory Results
12/29/23
06:00
WBC Pending
Hgb Pending
Hct Pending
Plt Count Pending
Sodium Pending
Potassium Pending
Chloride Pending
Carbon Dioxide Pending
BUN Pending
Creatinine Pending
Glucose Pending
Calcium Pending
Vital Signs:
Vital Signs
Temp Pulse Resp BP Pulse Ox
97.5 F 87 20 152/96 96
12/29/23 03:00 12/29/23 04:27 12/29/23 03:00 12/29/23 04:27 12/29/23 03:00
I&O
12/28/23 12/29/23 12/30/23
06:59 06:59 06:59
Intake Total 1460 / 1460 980 / 980
Output Total 1380 / 1380 1500 / 1500
Balance 80 / 80 -520 / -520
Review of Systems
-
History Source: Patient and Family
All other systems: Not reviewed unless documented
Constitutional: Reports No Symptoms
Respiratory: Reports No Symptoms; Denies Cough or Trouble Breathing
Cardiac: Reports No Symptoms; Denies Chest Pain
Abdomen/GI: Reports No Symptoms; Denies Abdominal Pain or Nausea
Genitourinary: Reports UTI
Skin: Reports No Symptoms
Neuro: Denies Headache
Psych: Reports Sad and Anxious
Physical Exam
-
General: No Apparent Distress and Comfortable
HEENT: Normocephalic and Atraumatic
Respiratory: Clear to Auscultation; Negative Wheezes, Rhonchi or Crackles
Cardiac: S1/S2 and Irregular Rhythm
GI: Soft, Nontender, Nondistended and Normal Bowel Sounds
Genito-urinary: Clear Urine and Donovan
Musculoskeletal: No Clubbing, No Cyanosis and No Edema
Skin: Warm and Dry
Neuro: Awake, Alert and Facial Droop (Left)
Psych: Calm and Confused
Data Reviewed
-
CT Scan: Image personally visualized and interpreted, Report Reviewed by me and Discussed with Physician
MRI: Image personally visualized and interpreted, Report Reviewed by me and Discussed with Physician
Labs: Labs Reviewed by me and Discussed with Physician
Old Records: Reviewed
[2023-12-29 07:53] LABS: Hematocrit 36.8 % (39.0-52.0); Hemoglobin 11.6 g/dL (13.0-18.0); Mean Corp Hgb Conc. 31.5 g/dL (33.0-37.0); Mean Corpuscular Hgb 30.1 pg (27.0-31.0); Mean Corpuscular Volume 95.3 fL (80.0-94.0); Mean Platelet Volume 10.4 fL (7.4-10.4); Platelet Count 156 10^3/uL (130-400); Red Blood Cell Count 3.86 10^6/uL (4.70-6.10); Red Cell Dist. Width 14.6 % (11.5-14.5); White Blood Cell Count 7.8 10^3/uL (4.8-10.8)
--- NOTE | 2023-12-29 07:53 | W.PN.UPDATE ---
Update Note
Progress Note Update
pt remains somnolent
donovan in place- urine clear
nots indicate family has decided on hospice; would leave donovan for comfort- change [id number]
call with any further questions
[2023-12-29 07:59] VITALS: BP 153/95
[2023-12-29] MEDS: B COMPLEX w/VITAMIN C PO (08:04)
[2023-12-29] MEDS: JANUVIA PO (08:04)
[2023-12-29] MEDS: ASPIRIN 300 MG RECTAL (08:04)
[2023-12-29] MEDS: LASIX PO (08:04)
[2023-12-29] MEDS: METAMUCIL, KONSYL PO (08:05)
[2023-12-29] MEDS: ZOLOFT PO (08:05)
[2023-12-29] MEDS: PROSCAR PO (08:05)
[2023-12-29] MEDS: PROTONIX PO (08:05)
[2023-12-29 08:19] LABS: Blood Urea Nitrogen 42 mg/dl (9-20); Calcium 9.3 mg/dl (8.4-10.2); Carbon Dioxide 23 mmol/L (22-30); Chloride 114 mmol/L (98-107); Estimated Creatinine Clearance 35 ml/min; Glucose 156 mg/dl (70-99); Potassium 3.4 mmol/L (3.5-5.1); Sodium 153 mmol/L (135-145); eGFR 41.19
--- NOTE | 2023-12-29 09:05 | HOSPNOTE ---
Family now in agreement with hospice services. Patient needs transport and will need OOH DNR on chart. Equipment will be ordered and delivered today 12/28. Attending aware and CM. Once patient is home we will admit onto hospice services.
--- NOTE | 2023-12-29 10:01 | CM ---
As per Shay Lai pt for dc to home with hospice tomorrow 12/30/23.
DNR OOH form completed on chart signed by MD .
Referral placed for hospice in care port.
Spoke with daughter Mitra [phone] she confirmed [facility] [address], [place] [address].It is called [facility] .
It has an elevator.
Reviewed IMM all questions answered. Emailed IMM to [email or web address] as requested.She agrees with dc.
Medical nec form on chart.
PLAN To home with Hospice care
--- NOTE | 2023-12-29 10:18 | CM ---
As per Shay Lai pt for dc to home with hospice tomorrow 12/30/23.
DNR OOH form completed on chart signed by MD .
Referral placed for hospice in care port.
Spoke with daughter Mitra [phone] she confirmed address : [address], [place] [address].It is called [facility] .
It has an elevator.
Reviewed IMM all questions answered. Emailed IMM to [email or web address] as requested.She agrees with dc.
Medical nec form on chart.
PLAN To home with Hospice care
[2023-12-29 10:19] LABS: Magnesium 1.8 mg/dl (1.6-2.3)
--- NOTE | 2023-12-29 10:49 | W.PN.CD ---
Today's Communication / Plan
-
discussed with patient, and daughter by phone. They will transfer to hospice care.
Impression / Plan
-
88 yo male with PMH of permanent A fib on eliquis, chronic HFrEF, prior CVA 2020 admitted with UTI and bacteremia. Then had recurrent CVA while inpatient. Exam with irregular rhythm, II/ systolic murmur at apex, 1+ LE edema. TnI peak 1.1. EKG:
A fib, iRBBB, PVC's.
Goal of care
-discussed with patient, and daughter by phone. They will transfer to hospice care.
CVA
Bacteremia, UTI.
Elevated troponin. Suspect acute non-ischemic myocardial injury in setting of UTI, and CVA.
AFIB permanent
HFrEF
Physical Exam
Vital Signs/Labs
Vital Signs
Temp Pulse Resp BP Pulse Ox
98.2 F 88 18 153/95 95
12/29/23 07:59 12/29/23 07:59 12/29/23 07:59 12/29/23 07:59 12/29/23 07:59
12/28/23 12/29/23 12/30/23
06:59 06:59 06:59
Actual Weight 86.806 kg 86.183 kg
12/29/23 07:34
12/29/23 07:34
PT 20.9 Sec (11.4-14.6) H 12/26/23 12:45
INR 1.78 12/26/23 12:45
APTT 40.9 Sec (23.4-35.0) H 12/26/23 12:45
Magnesium 1.8 mg/dl (1.6-2.3) 12/29/23 07:34
TSH 1.36 uIU/ml (0.47-4.68) 12/26/23 07:14
LAB Results
12/26/23 12/26/23 12/26/23
12:45 13:37 21:35
Troponin I Cancelled 1.100 H* 0.895 H*
Physical Exam
Constitutional: No acute distress
Cardiovascular: Rhythm/rate is irregular
Respiratory: Respiratory effort normal
Data Reviewed
-
Date of Service: December 29, 2023
EKG: Other (Tele: A fib 80s)
Labs: Labs Reviewed by me
[2023-12-29] MEDS: KCL 270 MEQ IV (10:54)
--- NOTE | 2023-12-29 11:16 | W.PN.NEPH.PH ---
Today's Communication / Plan
-
Sign off
Hospice
Assessment/Plan
-
Assessment
Acute right-sided stroke
BPH, urinary retention
Hypertension
Hyponatremia
Diabetes mellitus type 2
Heart failure reduced ejection fraction
CKD 3a
BRIE
Plan
Current free water deficit around 4 L
Patient for hospice transition
Hypotonic fluids were already provided
Follow BMP
Creatinine is at baseline, remains nonoliguric via Donovan catheter
Checked urine studies, fractional excretion of sodium was not consistent with prerenal stimulus although response to IV fluids is
Donovan per urology
Family states that they would not accept a PEG, patietn to be transferred to hospice care
-
-
Date of Service: December 29, 2023
CC / HPI / ROS
-
Chief Complaint:
Hyponatremia
History of Present Illness:
Sodium at 153 on hypotonic fluid
Hemodynamically stable
Review of Systems:
mental Status altered
Nonoliguric via Donovan
Labs
-
Labs:
WBC 7.8 10^3/uL (4.8-10.8) 12/29/23 07:34
RBC 3.86 10^6/uL (4.70-6.10) L 12/29/23 07:34
Hgb 11.6 g/dL (13.0-18.0) L 12/29/23 07:34
Hct 36.8 % (39.0-52.0) L 12/29/23 07:34
Plt Count 156 10^3/uL (130-400) 12/29/23 07:34
Sodium 153 mmol/L (135-145) H 12/29/23 07:34
Potassium 3.4 mmol/L (3.5-5.1) L 12/29/23 07:34
Chloride 114 mmol/L (98-107) H 12/29/23 07:34
Carbon Dioxide 23 mmol/L (22-30) 12/29/23 07:34
BUN 42 mg/dl (9-20) H 12/29/23 07:34
Creatinine 1.6 mg/dL (0.7-1.3) H 12/29/23 07:34
eGFR 41.19 12/29/23 07:34
Glucose 156 mg/dl (70-99) H 12/29/23 07:34
Calcium 9.3 mg/dl (8.4-10.2) 12/29/23 07:34
Albumin 4.1 g/dl (3.5-5.0) 12/25/23 14:31
Physical Exam
-
Vital Signs:
Vital Signs
Temp Pulse Resp BP Pulse Ox
98.2 F 88 18 153/95 95
12/29/23 07:59 12/29/23 07:59 12/29/23 07:59 12/29/23 07:59 12/29/23 07:59
Cardiovascular:: Regular rate and rhythm
Respiratory:: Bilateral: CTA
Lung Excursion:: Normal
Abdomen:: Nontender
Bowel Sounds:: Normal
Extremity Edema:: None: Bilateral:
Donovan Catheter: Yes
--- NOTE | 2023-12-29 11:26 | PTCARENOTE ---
Patient more alert, assisted to chair. Alert to name, wants to go home, face is symmetrical, no apparent weakness, unable to tell me place, time, mostly yes and no answers, does follow commands, did see and asked if he was going home. Donovan
catheter to gravity, alarms audible
[2023-12-29 11:54] VITALS: BP 140/86
[2023-12-29 12:05] LABS: Glucose - Point of Care 157 mg/dl (70-99)
[2023-12-29] MEDS: NOVOLOG FLEXPEN-LOW RESISTANCE 1 UNITS SC ×2 (13:23→18:54)
--- NOTE | 2023-12-29 14:10 | PTCARENOTE ---
Assist back to bed in the chair. Unable to wake him, sleeping soundly, took 4 people to get him into bed. He is now awake family at bedside, remains confused, trying to brush hair with a tissue box. Family attentive to his needs, try ing to
re-direct. Call ashford in reach
[2023-12-29 15:41] VITALS: BP 144/81
--- NOTE | 2023-12-29 18:09 | W.DCSUMMARY ---
Addendum entered and electronically signed by Chinyere Rose MD 12/30/23 08:40:
Read, reviewed, and agree. See same day progress note for additional details. Time spent coordinating care, DC planning, review of DC plan of care with resident, transition of care, review of records in EMR, med rec, consults, notes, d/w
consultants, nursing, family, and CM = 35 minutes
Of note, pt had a TTE not SHWETHA (was too unstable for SHWETHA).
Original Note:
Discharge Summary
Discharge Data
Date of Admission: 12/25/23
Date of Discharge: 12/30/23
Total time spent discharging patient (in min): 35 mins
-
Pending Results: No
Hospital Course
Discharging Physician : Chinyere Rose MD ; Anish Foster MD
Disposition : Home with hospice
Primary care physician : Shonda Locke CRNP
Principal Discharge diagnosis :
Acute right-sided MCA stroke
Sepsis with bacteremia
Acute UTI
Paroxysmal A-fib�now permanent
Chronic HFrEF
BPH with urinary retention
Non-insulin diabetes mellitus type 2
CKD stage stage IV
BRIE
Chronic essential hypertension
Acute hypokalemia
Acute hyponatremia
Acute anxiety
Nonischemic myocardial injury
Hospital Course :
88-year-old male with PMH of BPH (on finasteride), paroxysmal A-fib (on Eliquis), CKD stage IIIb, essential hypertension, llb-buptybs-[id number] diabetes mellitus, hypercholesterolemia, who was brought to ED on 12/25/2023 with dizziness, and
confusion that started in the morning before arrival. 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 Patient visited his urologist where it was
confirmed that he was emptying his bladder adequately a day after Donovan removal. Within the next 3 days, patient was said to be urinating appropriately however started having acute mental status changes which prompted his visit to the ED.
While in the ED, his BP was 94/53, pulse 74, respiratory 21, afebrile and saturating 93% on room air. His WBC count was 11.9, Hb 11.3, creatinine 2.8. His urinalysis was positive for UTI with dirty, turbid urine. An urgent CT abdomen/pelvis
without contrast was done, Donovan catheter was placed, blood cultures were obtained, urine cultures were obtained and patient was started on Unasyn and was admitted for further evaluation and management.
While in the hospital, patient was seen in consultation with urology, cardiology, and nephrology. ED after admission, patient had a rapid response for stroke alert for minimal responsiveness, a new left-sided flaccid and left facial droop which was
observed and confirmed by patient's on admission. Patient was taken for a stat head CT and CTA which were both without any acute findings. Neurology was consulted, and an urgent MRI was however positive for acute right lateral frontal lobe
infarct and a possible distal MCA thrombus. Because patient has been compliant with his Eliquis, patient was deemed not a candidate for TNK lytic therapy, and his Eliquis was stopped for Eliquis failure. He was started on ASA, and was placed on
strict NPO. He was further evaluated with an EEG which showed no acute seizure events and was placed on a Keppra load. His blood and urine cultures also grew Klebsiella pneumoniae and his Unasyn was changed to ceftriaxone given concerns for Unasyn
induced seizures. To further evaluate the origin of the suspected thrombus, patient was evaluated with a SHWETHA which was negative for infective endocarditis, or left atrial thrombus. Patient had and failed to speech evaluations and 1 video swallow
and was maintained on IV fluids throughout his remaining stay in the hospital. Given that the family (, 2 daughters) does not want feeding tubes, they agreed to change patient's CODE STATUS to DNR. After series of family meetings, patient's
family also decided to go with hospice.
Patient has been evaluated, and is medically hospice appropriate and and is discharged home on hospice upon family request. Patient will be followed by the hospice team moving forward and family has received appropriate information to this regard.
Important imaging findings :
CT abdomen/pelvis 12/25/2023:
No CT evidence for nephroureterolithiasis or hydronephrosis. Left perinephric inflammatory fat stranding may be secondary to an ascending urinary tract infection/pyelonephritis in the appropriate clinical setting. Collapsed urinary bladder with a
Donovan catheter in place.
CT head without contrast 12/26/2023: No acute intracranial abnormality
CT head and neck 12/26/2023:
Atherosclerosis of the carotid arterial system bilaterally with no findings to suggest hemodynamically significant stenosis of the internal carotid arteries bilaterally.
No findings to suggest internal carotid artery or vertebral artery dissection bilaterally.
No evidence of significant proximal intracranial arterial vessel cut off or stenosis.
MRI brain without contrast 12/26/2023:
Restricted diffusion within the lateral right frontal lobe and the right insula consistent with acute infarction. There is linear FLAIR hyperintense signal with a small focus of blooming artifact along the superior aspect of the right sylvian
fissure which is suggestive of slow flow and possible distal MCA thrombus.
Sequelae of moderate small vessel ischemic disease with small focus of consolidation along the superior left frontal lobe.
EEG 12/26/2023:
This is an abnormal awake and drowsy EEG due to continuos right hemispheric slowing indicative of structural lesion in the above region and generalized slowing consistent with encephalopathy, not specific in terms of etiology. No epileptiform
activity was seen.�
Anticipated Discharge: > 48 hours
Discharge Plan
-
Patient Disposition: Home with Hospice
Discharge Diagnosis/Procedures: Acute right-sided MCA stroke
Sepsis with bacteremia
Acute UTI
Paroxysmal A-fib�now permanent
Chronic HFrEF
BPH with urinary retention
Non-insulin diabetes mellitus type 2
CKD stage stage IV
BRIE
Chronic essential hypertension
Acute hypokalemia
Acute hyponatremia
Acute anxiety
Nonischemic myocardial injury
Condition: Serious
Diet: Other diet
Additional Diets: Comfort feeds
Activity: With assistance and As tolerated
Driving Restrictions: No driving
Bathing Restrictions: None
Other Services: Hospice
Referrals:
Shonda Locke CRNP [Family Provider] - in less than 1 week
Prescriptions:
New
lorazepam [Ativan] 2 mg/mL Solution
0.25 mg IV Q8H Qty: 25 0RF
bisacodyl 10 mg Suppository
10 mg OH W60ATVE PRN (Reason: constipation) Qty: 30 0RF
polyethylene glycol 3350 17 gram Powder In Packet
17 g PO DAILYPRN PRN (Reason: constipation) Qty: 30 0RF
Continued
acetaminophen [Tylenol Extra Strength] 500 mg Tablet
1,000 mg PO Q6HPRN PRN (Reason: mild Pain)
sertraline 50 mg Tablet
50 mg PO DAILY
Januvia 50 mg tablet
50 mg PO DAILY
latanoprost 0.005 % Drops
1 drp LEFT EYE HS
psyllium Packet
1 packet PO DAILY
silodosin 8 mg Capsule
8 mg PO QPM
gabapentin 100 mg Capsule
100 mg PO HS 30 Days Qty: 30 0RF
finasteride 5 mg Tablet
5 mg PO DAILY 30 Days Qty: 30 0RF
albuterol sulfate 2.5 mg /3 mL (0.083 %) Solution For Nebulization
2.5 mg INHALATION R Q6HPRN PRN (Reason: sob)
furosemide 20 mg Tablet
20 mg PO DAILY
fluticasone propionate [Flonase] 50 mcg/actuation [place],Suspension
1 spray INTRANASAL HS
diclofenac sodium 1 % Gel
2 g TOPICAL Q8HPRN PRN (Reason: lower back)
loratadine [Claritin] 10 mg Tablet
10 mg PO HS Qty: 0 0RF
Discontinued
atorvastatin 40 MG tablet
40 mg PO QPM
Rx Instructions:
take with 10mg for total of 50mg
omeprazole 20 MG capsule,delayed release(DR/EC)
20 mg PO DAILY
fenofibrate 54 MG tablet
54 mg PO DAILY
Eliquis 2.5 mg Tablet
2.5 mg PO BID Qty: 60 0RF
vitamin B complex Tablet
1 tab PO DAILY
atorvastatin 10 mg Tablet
10 mg PO QPM
Rx Instructions:
take with 40mg for total of 50mg
desloratadine 5 mg Tablet
5 mg PO DAILY
midodrine 2.5 mg Tablet
2.5 mg PO BIDPRN PRN (Reason: if BP<110)
magnesium oxide 250 mg magnesium Tablet
250 mg PO NOON
metoprolol succinate [Toprol XL] 25 mg tablet extended release 24 hr
12.5 mg PO DAILY
Rx Instructions:
Hold if SBP<110
cefdinir 300 mg capsule
300 mg PO Q12H
Discharge Date and Time
Print Language: [place]
[2023-12-29 18:50] LABS: Glucose - Point of Care 162 mg/dl (70-99)
[2023-12-29] MEDS: NEURONTIN PO (20:16)
[2023-12-29] MEDS: CLARITIN PO (20:16)
[2023-12-29] MEDS: LEVSIN 0.25 MG PO (21:06)
[2023-12-29 23:15] VITALS: BP 126/64
[2023-12-30 00:22] LABS: Glucose - Point of Care 137 mg/dl (70-99)
[2023-12-30] MEDS: ATIVAN IV (01:15)
[2023-12-30] MEDS: NSS (PRESERVATIVE FREE) IV (01:15)
[2023-12-30] MEDS: XALATAN OPHTHALMIC SOLUTION LEFT EYE (01:16)
[2023-12-30] MEDS: NOVOLOG FLEXPEN-LOW RESISTANCE SC ×2 (01:18→05:58)
[2023-12-30] MEDS: ATIVAN 0.25 MG IV ×2 (02:19→05:44)
[2023-12-30] MEDS: ANCEF 10 IV (02:20)
[2023-12-30] MEDS: NSS (PRESERVATIVE FREE) 0.125 ML IV (05:44)
[2023-12-30 06:00] VITALS: BMI 25.7
[2023-12-30 07:30] VITALS: BP 148/85
--- NOTE | 2023-12-30 08:27 | W.PN.HOSP.TC ---
Today's Communication/Plan
-
home with hospice
Assessment / Plan
Assessment / Plan
pt is an 88 year old male
d/c home on hospice
gurgling--gave dose of IV glycopyrrolate
acute CVA--pt had rapid response for stroke alert on 12/26/23 for left sided flaccid (new) and left facial droop (not new) along with minimal responsiveness--had STAT head CT without acute findings, had STAT CTA without large vessel occlusion--got
urgent MRI--positive for acute right lateral frontal lobe acute infarct with small distal MCA thrombus (not enough to do thrombectomy)--pt not candidate for TNK lytic therapy due to Eliquis (stopped now, can restart on 12/28 as per neuro) and
started on asa--no seizures noted on EEG but did get keppra loaded--apprec neurology--failed speech eval with strict NPO, failed VSE as well, with no PEG desired, hospice appropriate, for d/c home Sat on hospice
Sepsis (POA, likely early by criteria)-�likely secondary to urinary retention with UTI/pyelo based on CT scan findings--has had donovan before AND Klebsiella pneumonia UTI with bacteremia---stop IVF at 60 ml/hr--Unasyn changed to ceftriaxone due to
lowering seizure threshold--urine and blood cultures positive for Klebsiella pneumoniae again--follow blood cultures to clearance--cont donovan--apprec urology, no further voiding trials, donovan to stay permanently--cont proscar--neuro raised concern
for septic emboli and endocarditis.... echo without vegetations--will stop ABX at d/c
History of BPH with urinary retention and bilateral hydronephrosis--has had donovan in past--was at urologist office last Monday and was determined that he was emptying his bladder--currently retaining with donovan cath replaced--no further plans to do
TOV
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
Essential hypertension--Continue Toprol with holding parameters.
Paroxysmal A-fib--Eliquis stopped
Non ischemic myocardial injury secondary to sepsis and RV strain--trend
Chronic HFmrEF---Continue GDMT with Lasix, Toprol�limited by renal function and hypotension--had ECHO recently, no need to repeat
NIDDM type II--Recent A1c 6.9---Januvia reduced to 25 mg for poor renal function--Will cover with insulin sliding scale with Accu-Cheks---Diabetic diet.
DVT PPx--Eliquis stopped
CODE STATUS--DNR
Anticipated Discharge: Today
Subjective/Interval History
-
Date of Service: December 30, 2023
pt gurgling--not responsive--daughter at bedside
Objective Data
-
Vital Signs:
max temp for 24 hours
12/29/23
15:41
Temp 98.2 F
Vital Signs
Temp Pulse Resp BP Pulse Ox
98 F 72 22 126/64 95
12/29/23 23:15 12/29/23 23:15 12/29/23 23:15 12/29/23 23:15 12/29/23 23:15
I&O
12/29/23 12/30/23 12/31/23
06:59 06:59 06:59
Intake Total 980 / 980 1710 / 1710
Output Total 1500 / 1500 2775 / 2775
Balance -520 / -520 -1065 / -1065
Review of Systems
-
Unable to obtain full review of systems at this time due to: Acuity
Physical Exam
-
General: Appears Chronically Ill
HEENT: Normocephalic, Atraumatic and Other (upper airway gurgles); Negative Oxygen
Respiratory: Clear to Auscultation (anteriorly)
Cardiac: Regular Rhythm and S1/S2; Negative Murmur
GI: Soft, Nontender, Nondistended and Normal Bowel Sounds
Musculoskeletal: No Clubbing, No Cyanosis and No Edema
Skin: Warm and Dry
Neuro: Negative Awake or Alert
Psych: Calm
[2023-12-30] MEDS: ASPIRIN RECTAL (08:29)
[2023-12-30] MEDS: LASIX PO (08:30)
[2023-12-30] MEDS: B COMPLEX w/VITAMIN C PO (08:30)
[2023-12-30] MEDS: JANUVIA PO (08:30)
[2023-12-30] MEDS: METAMUCIL, KONSYL PO (08:31)
[2023-12-30] MEDS: PROSCAR PO (08:31)
[2023-12-30] MEDS: PROTONIX PO (08:31)
[2023-12-30] MEDS: ZOLOFT PO (08:31)
[2023-12-30] MEDS: ROBINUL 0.2 MG IV (08:32)
--- NOTE | 2023-12-30 09:15 | CM ---
MD entered order for discharge.
As per Shay Lai pt for dc to home with hospice today.
DNR OOH form completed on chart signed by MD .
Confirmed address : [address], [place] [id number].It is called [facility] .
Medical nec form on chart.
PLAN To home with Hospice care
== END 2023-12-30 09:59 | disposition hospice, home (50) | DRG 871 ==
LOC: 4 EAST ACU 19:10
PROVIDERS: Student in an Organized Health Care Education/Training Program; ADMITTING PHYSICIAN Internal Medicine; CONSULT PHYSICIAN Internal Medicine; CONSULT PHYSICIAN Specialist; EMERGENCY PHYSICIAN Emergency Medicine; FAMILY PHYSICIAN Nurse Practitioner Family; OTHER PHYSICIAN Psychiatry & Neurology Neurology
DX: A41.59 Other Gram-negative sepsis (principal); I63.519 Cerebral infarction due to unspecified occlusion or stenosis of unspecified middle cerebral artery; N39.0 Urinary tract infection, site not specified; I48.21 Permanent atrial fibrillation; I50.22 Chronic systolic (congestive) heart failure; I13.0 Hypertensive heart and chronic kidney disease with heart failure and stage 1 through stage 4 chronic kidney disease, or unspecified chronic kidney disease; N18.4 Chronic kidney disease, stage 4 (severe); N17.9 Acute kidney failure, unspecified; E87.1 Hypo-osmolality and hyponatremia; I5A Non-ischemic myocardial injury (non-traumatic); E87.0 Hyperosmolality and hypernatremia; G93.40 Encephalopathy, unspecified; R47.01 Aphasia; R29.810 Facial weakness; R13.10 Dysphagia, unspecified; N40.1 Benign prostatic hyperplasia with lower urinary tract symptoms; E11.22 Type 2 diabetes mellitus with diabetic chronic kidney disease; E87.6 Hypokalemia; F41.9 Anxiety disorder, unspecified; K59.00 Constipation, unspecified; Z79.84 Long term (current) use of oral hypoglycemic drugs; Z79.01 Long term (current) use of anticoagulants; Z79.899 Other long term (current) drug therapy; E78.00 Pure hypercholesterolemia, unspecified; I08.1 Rheumatic disorders of both mitral and tricuspid valves; I70.0 Atherosclerosis of aorta; G47.33 Obstructive sleep apnea (adult) (pediatric); I65.29 Occlusion and stenosis of unspecified carotid artery; F32.A Depression, unspecified; K21.9 Gastro-esophageal reflux disease without esophagitis; K43.9 Ventral hernia without obstruction or gangrene; Z86.718 Personal history of other venous thrombosis and embolism; Z86.73 Personal history of transient ischemic attack (TIA), and cerebral infarction without residual deficits; Z96.653 Presence of artificial knee joint, bilateral; Z66 Do not resuscitate
CPT/HCPCS: 93308; 51702; 70450; 70496; 70498; 70551; 74176; 74230; 80048; 80053; 81003; 81015; 82570; 82607; 82962; 83605; 83735; 83935; 84300; 84443; 84484; 85025; 85027; 85610; 85730; 87040; 87070; 87077; 87086; 87149; 87186; 87205; 92523; 92526; 92610; 92611; 93005; 93321; 93325; 95816; 96365; 97110; 97116; 97163; 97167; 97530; 97535; 99291; Q9967